=== PATIENT | female | born 1945 | race Caucasian/White ===

== ENCOUNTER → 2017-01-08 | Day surgery (SDC) | payer BC ==
[2016-12-04 10:06] VITALS: Ht 158.8 cm; Wt 65.9 kg
[~2017-01-08] VITALS: Ht 158.8 cm; Wt 65.9 kg
[~2017-01-08] MED LIST: ALL180 PO; AMLO-110 PO; ASPEC81 PO; ATOR-24 PO; CLC100 PO; COQ10100 PO; ESCI1TAB10 PO; FLUT27.5 NAE; GABA-113 PO; HYDR25TA4 PO; IOPAMIDOL INJ 61% 15 ML VIAL ONE; LIDOCAINE HCL 1% MPF 5 ML VIAL ONE; LUTE15CA PO; METO25TA3 PO; MULT-506 PO; PANT40TA PO; POLY335019 PO; SODIUM CHLORIDE 0.9% INJ 10 ML VIAL ONE
--- NOTE | 2017-01-08 15:12 | History & Physical Bridge - SC ---
H&P Re-Evaluation Bridge Note: I have examined the patient, reviewed the History & Physical and in the interval since the performance of the History & Physical I have noted the following changes of clinical significance: No changes noted
[2017-01-08 15:40] VITALS: TEMP 37.3
--- NOTE | 2017-01-08 15:46 | Discharge Instructions ---
Discharge Instructions Date of Service Jan 08, 2017. Visit Reason for Visit: Lumbar Radiculopathy Discharge Discharge Diagnosis / Problem: left leg pain Discharge Goals Goal(s): Decrease discomfort, Improve function Medications Stopped Medications Name(s): asa last dose on friday. Activity Recommendations Activity Limitations: resume your previous activity Anesthesia . Post Anesthesia Instructions: If you have had General Anesthesia or IV Sedation: * Do not drive today. * Resume driving when surgeon permits. * Do not make important decisions or sign legal documents today. * Call surgeon for: 1. Temperature elevations greater than 101 degrees F. 2. Uncontrollable pain. 3. Excessive bleeding. 4. Persistent nausea and vomiting. 5. Medication intolerance (nausea, vomiting or rash). * For nausea and vomiting use only clear liquids such as: tea, soda, bouillon until nausea subsides, then gradually increase diet as tolerated. * If you have any concerns or questions, call your surgeon's office. If physician is unavailable and it is an emergency, call 911 or go to the nearest emergency room. . Diet Recommendations Recommended Home Diet: resume previous diet Procedures Procedures Performed: Lumbar Epidural Steroid Injection Pending Studies Studies pending at discharge: no Medical Emergencies . Who to Call and When: Medical Emergencies: If at any time you feel your situation is an emergency, please call 911 immediately. . Non-Emergent Contact Non-Emergency issues call your: Specialist . . "Provider Documentation" section prepared by Minesh Capone. .
[2017-01-08 15:53] VITALS: BP 147/86; PULSE 59; O2SAT 99
--- NOTE | 2017-01-16 07:45 | [facility] Operative Report ---
Operative Report Date of Service January 08, 2017. Operative Report DATE OF SURGERY: 01/08/17. DATE OF OPERATION: 01/08/2017 PREOPERATIVE DIAGNOSIS: L3-4 herniated nucleus pulposus with a right L4 radiculopathy. POSTOPERATIVE DIAGNOSIS: Same. PROCEDURE: Right L4 intralaminar epidural steroid injection. SURGEON: Dr. Minesh Capone. INDICATIONS: The patient is a 71-year-old female who had received an epidural with good success in May. It provided her with nearly 8+ months of relief; however, her pain is returning and is problematic to her. She presents today for an injection. She is having more pain issues on the right side. Historically, she has had more left-sided pain. PHYSICAL EXAMINATION: GENERAL: Pleasant female seated comfortably in no apparent distress. MUSCULOSKELETAL EXAMINATION: Lumbar paraspinal muscles were palpated and noted be nontender. She had no issues with forward flexion or extension. She had normal lower extremity strength. Sensation intact distally. Negative seated straight leg raises. CONSENT: Verbal and written consent was obtained from the patient. Risks and benefits were reviewed. Risks include but are not limited to epidural abscess, epidural hematoma, allergic reaction, dural puncture. The patient wishes to proceed. PROCEDURE: The patient was taken back to the special procedures room of [facility]. She was maintained in a prone position. Backside was cleansed with Betadine x3 and a dry sterile dressing was applied. Fluoroscope was used to identify the L3-L4 intralaminar space. Overlying skin on the left side was anesthetized with 4 mL of lidocaine 1% with a 25 gauge 1.5-inch needle. A 22-gauge 3-1/2 inch Tuohy needle was then directed down towards the intralaminar space. It was advanced under lateral fluoroscopic guidance. Loss of resistance was noted at a distance of just under 6 cm. Isovue-300 contrast 1 mL was injected in which demonstrated an epidural outline with both AP and lateral views. She then underwent injection after negative aspiration of 40 mg of Depo-Medrol and 4 mL of preservative free sodium chloride. Injection was well tolerated. DISPOSITION: 1. The patient is taken out into the discharge recovery area where she will be discharged home once discharge criteria have been met. 2. Follow up in the [facility] office in 2-4 weeks. I attest to the content of the Intraoperative Record and any orders documented therein. Any exceptions are noted below. I attest to the content of the Intraoperative Record and any orders documented therein. Any exceptions are noted below.
== END | disposition home or self-care (01) ==
LOC: X.SURG 14:20
PROVIDERS: ATTEND Physical Medicine & Rehabilitation
DX: M51.26 Other intervertebral disc displacement, lumbar region (principal); M54.16 Radiculopathy, lumbar region

== ENCOUNTER → 2017-01-27 | Outpatient (CLI) | payer BC ==
[~2017-01-27] MED LIST changes: -IOPAMIDOL INJ 61% 15 ML VIAL ONE; -LIDOCAINE HCL 1% MPF 5 ML VIAL ONE; -SODIUM CHLORIDE 0.9% INJ 10 ML VIAL ONE
--- NOTE | 2017-01-27 14:32 | MAMMOGRAPHY REPORT ---
BILATERAL DIGITAL SCREENING MAMMOGRAM WITH CAD: 01/27/2017 CLINICAL HISTORY: Routine screening. Patient has no complaints. TECHNIQUE: Current study was also evaluated with a Computer Aided Detection (CAD) system. Bilateral CC and MLO views were obtained. COMPARISON: Comparison is made to exams dated: 01/25/2016 mammogram, 01/16/2015 mammogram, 01/11/2014 ma mmogram, 01/08/2013 mammogram - [facility], 02/02/2008, and 12/15/2006. BREAST COMPOSITION: There are scattered areas of fibroglandular density in both breasts. FINDINGS: No suspicious masses, calcifications, or areas of architectural distortion are noted in ei ther breast. There has been no significant interval change compared to prior exams. Nodular asymmetr y in the right inferior anterior breast is stable compared to prior exams. Bilateral benign-appearin g calcifications are stable. IMPRESSION: ACR BI-RADS CATEGORY 2: BENIGN There is no mammographic evidence of malignancy. A 1 year screening mammogram is recommended. The pa tient will receive written notification of the results. Approximately 10% of breast cancers are not detected with mammography. A negative mammographic report should not delay biopsy if a clinically suggestive mass is present. Guera Moseley M.D. /:01/27/2017 12:31:49 Associate Attorney: Christianne NOVOA)(M), [facility] letter sent: Normal 1/2 BI-RADS Code: ACR BI-RADS Category 2: Benign
== END | disposition home or self-care (01) ==
LOC: C.MAMM 10:42
PROVIDERS: ATTEND Obstetrics & Gynecology
DX: Z12.31 Encounter for screening mammogram for malignant neoplasm of breast (principal)

== ENCOUNTER → 2017-01-28 | Day surgery (SDC) | payer BC ==
[2017-01-10 12:19] VITALS: Ht 157.5 cm; Wt 65.9 kg
[~2017-01-28] VITALS: Ht 157.5 cm; Wt 65.9 kg
[~2017-01-28] MED LIST changes: +500ML BSS 0.3ML EPI 1:1000PF IRRIG ONE; +ACETAMINOPHEN 325 MG TAB PO PRN; +AMVISC PLUS 0.8ML SYRINGE INT OCU ONE; +ATROPINE SULFATE 0.1 MG/ML 5ML SYR IV PRN; +BSS FLUSH ONE; +EpHEDrine SULFATE INJ 50 MG/ML AMP IV PRN; +EpINEphrine INJ 1MG/ML AMP 1 MG/ML AMP ONE; +LACTATED RINGER'S 1000ML 500 ML IV SCH; +LIDOCAINE 3.5% OPH GEL PER APPLICATION CHARGE ONE; +LIDOCAINE HCL 1% MPF 2 ML VIAL ONE; +MIDAZOLAM HCL 1 MG/ML 2ML VIAL ONE; +OCUCOAT 1 ML SOLN IO ONE; +ONDANSETRON INJ 2 MG/ML 2 ML VIAL IV PRN; +POVIDONE-IODINE OP SOLN 30 ML BTL ONE; +PROPARACAINE 0.5% OP SOLN PER DROP CHARGE OPR SCH; +TOBRAMYCIN/DEXAMETHASONE OPH OINT PER APPLN CHARGE ONE
[2017-01-28] MEDS: PHENYLEPHRINE HCL 2.5% OP SOLN PER DROP CHARGE OPR SCH ×2 (06:50→06:58)
[2017-01-28] MEDS: TROPICAMIDE 1% OP SOLN PER DROP CHARGE OPR SCH ×2 (06:51→06:59)
[2017-01-28] MEDS: CYCLOPENTOLATE HCL 1% OP SOLN PER DROP CHARGE OPR SCH ×2 (06:53→07:00)
[2017-01-28] MEDS: KETOROLAC 0.5% OP SOLN PER DROP CHARGE OPR SCH ×2 (06:55→07:01)
[2017-01-28] MEDS: GATIFLOXACIN OP SOLN PER DROP CHARGE OPR SCH ×2 (06:56→07:02)
--- NOTE | 2017-01-28 08:05 | Discharge Instructions-SurgCtr ---
Discharge Instructions Date of Service Jan 28, 2017. Visit Reason for Visit: Cataract Right Eye Discharge Discharge Diagnosis / Problem: cataract Discharge Goals Goal(s): Improve function Activity Recommendations Activity Limitations: per Instructions/Follow-up section Anesthesia . Post Anesthesia Instructions: If you have had General Anesthesia or IV Sedation: * Do not drive today. * Resume driving when surgeon permits. * Do not make important decisions or sign legal documents today. * Call surgeon for: 1. Temperature elevations greater than 101 degrees F. 2. Uncontrollable pain. 3. Excessive bleeding. 4. Persistent nausea and vomiting. 5. Medication intolerance (nausea, vomiting or rash). * For nausea and vomiting use only clear liquids such as: tea, soda, bouillon until nausea subsides, then gradually increase diet as tolerated. * If you have any concerns or questions, call your surgeon's office. If physician is unavailable and it is an emergency, call 911 or go to the nearest emergency room. . Instructions / Follow-Up Instructions / Follow-Up ACTIVITY RECOMMENDATIONS: * No strenuous lifting, jogging or running for 4 days * No swimming or yard work for 1 week. * Limited bending is permitted, such as putting on shoes. RETURN TO SCHOOL/WORK: No work until seen by physician in office. MEDICATIONS: Resume previous medications unless instructed otherwise by your surgeon. This includes eye drops for glaucoma. Zymaxid/Gatifloxacin (rose cap) - one drop every 2 hours until bedtime Nevanac/Ilevro/Prolensa/Ketorolac (telles cap) - one drop every 4 hours until bedtime Prednisolone/Durezol (white/pink cap, SHAKE WELL) - one drop every 2 hours until bedtime Starting tomorrow - all 3 drops every 4 hours until seen in the office Optive drops - as needed for discomfort SPECIAL CARE INSTRUCTIONS: * Wear eyeshield when sleeping, for four nights. * You may wear your own glasses or sunglasses while awake. * You may read or watch TV * You may shower and wash your face, but be gentle around the eye and pat dry. * Blurry vision and mild irritation are normal. * Call office if pain is more severe or vision becomes dark at . FOLLOW UP VISIT: Follow-up with Dr Shaw tomorrow. Diet Recommendations Home Diet: resume previous diet Procedures Procedures Performed: Right Cataract Phacoemulsification With Intraocular Lens Implant Pending Studies Studies pending at discharge: no Medical Emergencies . Who to Call and When: Medical Emergencies: If at any time you feel your situation is an emergency, please call 911 immediately. . Non-Emergent Contact Non-Emergency issues call your: Drawer In Hand . . "Provider Documentation" section prepared by Murray Shaw. .
--- NOTE | 2017-01-28 08:05 | [facility] Operative Report ---
Operative Report Date of Service Jan 28, 2017. Operative Report 1. PREOPERATIVE DIAGNOSIS: Cataract of the right eye. 2. POSTOPERATIVE DIAGNOSIS: Same. 3. PROCEDURE: Phacoemulsification with intraocular lens implantation of the right eye. SURGEON: Dr. Murray Shaw. ANESTHESIA: Topical Lidocaine gel, 1% Non- Preserved intracameral Lidocaine, and monitored intravenous sedation. INDICATIONS FOR THE PROCEDURE: The patient is a 71 - year-old female with a history of cataract of the right eye causing significant visual impairment. The details of the proposed procedure were explained to the patient who asked appropriate questions and following discussion of all risks, benefits and alternatives agreed to have the procedure done. 4. OPERATION AND FINDINGS: DESCRIPTION OF PROCEDURE: After informed consent was obtained, the patient was brought to the Operating Room at the [facility]. The patient was placed in a supine position and then the right eye was prepped and draped in the usual sterile fashion for intraocular surgery. A drop of topical Lidocaine gel was placed in the operative eye. A wire lid speculum was then placed in the fornices. A corneal paracentesis was then created temporally. The Non-Preserved Lidocaine was then instilled into the anterior chamber. The anterior chamber was then pressurized with viscoelastic. A 2.0 mm clear corneal incision was then created temporally. A cystotome was inserted into the anterior chamber and used to create a tear in the anterior lens capsule. This capsular tear was then used to create a small flap and the flap was dragged in a counterclockwise direction in order to create a continuous curvilinear capsulorrhexis. Hydrodissection was accomplished with balanced salt solution. Phacoemulsification of the lens nucleus was then performed in a standard [id number] technique. The phaco time was 23 seconds with an average power of 13 %. The remaining cortical material was removed using irrigation aspiration. The capsular bag was then filled with viscoelastic. A Mendez [id number] +23.0 diopters lens was then loaded into the injector and injected into the capsular bag. The remaining viscoelastic was removed with the irrigation aspiration handpiece. The wound was hydrated and then checked and found to be watertight. The intraocular pressure was checked and found to be adequate. The wire lid speculum was removed and the patient's face was cleaned and dried. TobraDex ointment was placed in the inferior fornix. The patient was discharged to the Recovery Room having tolerated the procedure well. There were no complications. The patient will be seen tomorrow in the office for follow-up. I attest to the content of the Intraoperative Record and any orders documented therein. Any exceptions are noted below.
[2017-01-28 08:08] VITALS: TEMP 36.4
--- NOTE | 2017-01-28 08:16 | Anesthesia Progress Nt - [facility] ---
Anesthesia Post Op Note Date & Time Jan 28, 2017 at 08:16 Vital Signs Pain Intensity: 0 Vital Signs Past 12 Hours Date Time Temp Pulse Resp B/P (MAP) Pulse Ox O2 Delivery O2 Flow Rate FiO2 01/28/17 08:08 36.4 52 18 155/79 (104) 98 Room Air 01/28/17 06:39 36.9 56 16 153/75 (101) 96 Room Air Notes Mental Status: alert / awake / arousable, participated in evaluation Pt Amnestic to Procedure: Yes Nausea / Vomiting: adequately controlled Pain: adequately controlled Airway Patency, RR, SpO2: stable & adequate BP & HR: stable & adequate Hydration State: stable & adequate Anesthetic Complications: no major complications apparent
[2017-01-28 08:28] VITALS: BP 135/78; PULSE 53; O2SAT 97
== END | disposition home or self-care (01) ==
LOC: X.SURG 06:30
PROVIDERS: ATTEND Ophthalmology
DX: H26.9 Unspecified cataract (principal); F32.9 Major depressive disorder, single episode, unspecified; E78.5 Hyperlipidemia, unspecified; K21.9 Gastro-esophageal reflux disease without esophagitis; I25.10 Atherosclerotic heart disease of native coronary artery without angina pectoris; Z79.899 Other long term (current) drug therapy; Z79.82 Long term (current) use of aspirin; Z82.49 Family history of ischemic heart disease and other diseases of the circulatory system; Z82.3 Family history of stroke

== ENCOUNTER → 2017-02-18 | Day surgery (SDC) | payer BC ==
[2017-02-05 12:03] VITALS: Ht 157.5 cm; Wt 65.9 kg
[~2017-02-18] VITALS: Ht 157.5 cm; Wt 65.9 kg
[~2017-02-18] MED LIST changes: +AMVISC PLAIN 0.8ML SYRINGE INT OCU ONE; -ONDANSETRON INJ 2 MG/ML 2 ML VIAL IV PRN; +PROPARACAINE 0.5% OP SOLN PER DROP CHARGE OPL SCH; -PROPARACAINE 0.5% OP SOLN PER DROP CHARGE OPR SCH
[2017-02-18] MEDS: PHENYLEPHRINE HCL 2.5% OP SOLN PER DROP CHARGE OPL SCH ×2 (08:42→08:47)
[2017-02-18] MEDS: TROPICAMIDE 1% OP SOLN PER DROP CHARGE OPL SCH ×2 (08:43→08:48)
[2017-02-18] MEDS: CYCLOPENTOLATE HCL 1% OP SOLN PER DROP CHARGE OPL SCH ×2 (08:44→08:49)
[2017-02-18] MEDS: KETOROLAC 0.5% OP SOLN PER DROP CHARGE OPL SCH ×2 (08:45→08:50)
[2017-02-18] MEDS: GATIFLOXACIN OP SOLN PER DROP CHARGE OPL SCH ×2 (08:46→08:56)
--- NOTE | 2017-02-18 09:43 | Discharge Instructions-SurgCtr ---
Discharge Instructions Date of Service Feb 18, 2017. Visit Reason for Visit: Cataract Left Eye Discharge Discharge Diagnosis / Problem: cataract Discharge Goals Goal(s): Improve function Activity Recommendations Activity Limitations: per Instructions/Follow-up section Anesthesia . Post Anesthesia Instructions: If you have had General Anesthesia or IV Sedation: * Do not drive today. * Resume driving when surgeon permits. * Do not make important decisions or sign legal documents today. * Call surgeon for: 1. Temperature elevations greater than 101 degrees F. 2. Uncontrollable pain. 3. Excessive bleeding. 4. Persistent nausea and vomiting. 5. Medication intolerance (nausea, vomiting or rash). * For nausea and vomiting use only clear liquids such as: tea, soda, bouillon until nausea subsides, then gradually increase diet as tolerated. * If you have any concerns or questions, call your surgeon's office. If physician is unavailable and it is an emergency, call 911 or go to the nearest emergency room. . Instructions / Follow-Up Instructions / Follow-Up ACTIVITY RECOMMENDATIONS: * No strenuous lifting, jogging or running for 4 days * No swimming or yard work for 1 week. * Limited bending is permitted, such as putting on shoes. RETURN TO SCHOOL/WORK: No work until seen by physician in office. MEDICATIONS: Resume previous medications unless instructed otherwise by your surgeon. This includes eye drops for glaucoma. Zymaxid/Gatifloxacin (rose cap) - one drop every 2 hours until bedtime Nevanac/Ilevro/Prolensa/Ketorolac (telles cap) - one drop every 4 hours until bedtime Prednisolone/Durezol (white/pink cap, SHAKE WELL) - one drop every 2 hours until bedtime Starting tomorrow - all 3 drops every 4 hours until seen in the office Optive drops - as needed for discomfort SPECIAL CARE INSTRUCTIONS: * Wear eyeshield when sleeping, for four nights. * You may wear your own glasses or sunglasses while awake. * You may read or watch TV * You may shower and wash your face, but be gentle around the eye and pat dry. * Blurry vision and mild irritation are normal. * Call office if pain is more severe or vision becomes dark at . FOLLOW UP VISIT: Follow-up with Dr Shaw tomorrow. Diet Recommendations Home Diet: resume previous diet Procedures Procedures Performed: Left Cataract Phacoemulsification With Intraocular Lens Implant; Toric Lens Pending Studies Studies pending at discharge: no Medical Emergencies . Who to Call and When: Medical Emergencies: If at any time you feel your situation is an emergency, please call 911 immediately. . Non-Emergent Contact Non-Emergency issues call your: Drawing Checker . . "Provider Documentation" section prepared by Murray Shaw. .
--- NOTE | 2017-02-18 09:45 | [facility] Operative Report ---
Operative Report Date of Service Feb 18, 2017. Operative Report 1. PREOPERATIVE DIAGNOSIS: Cataract of the left eye. 2. POSTOPERATIVE DIAGNOSIS: Same. 3. PROCEDURE: Phacoemulsification with intraocular lens implantation of the left eye. SURGEON: Dr. Murray Shaw. ANESTHESIA: Topical Lidocaine gel, 1% Non- Preserved intracameral Lidocaine, and monitored intravenous sedation. INDICATIONS FOR THE PROCEDURE: The patient is a 71 - year-old female with a history of cataract of the left eye causing significant visual impairment. The details of the proposed procedure were explained to the patient who asked appropriate questions and following discussion of all risks, benefits and alternatives agreed to have the procedure done. Patient had corneal astigmatism and therefore elected to have a toric lens placed. 4. OPERATION AND FINDINGS: DESCRIPTION OF PROCEDURE: After informed consent was obtained, patient was placed in an upright position and the cornea was marked at 166 degrees using the Ekinops corneal marking tool. The the patient was brought to the Operating Room at the [facility]. The patient was placed in a supine position and then the left eye was prepped and draped in the usual sterile fashion for intraocular surgery. A drop of topical Lidocaine gel was placed in the operative eye. A wire lid speculum was then placed in the fornices. A corneal paracentesis was then created temporally. The Non-Preserved Lidocaine was then instilled into the anterior chamber. The anterior chamber was then pressurized with viscoelastic. A 2.0 mm clear corneal incision was then created temporally. A cystotome was inserted into the anterior chamber and used to create a tear in the anterior lens capsule. This capsular tear was then used to create a small flap and the flap was dragged in a counterclockwise direction in order to create a continuous curvilinear capsulorrhexis. Hydrodissection was accomplished with balanced salt solution. Phacoemulsification of the lens nucleus was then performed in a standard divide- and-conquer technique. The phaco time was 24 seconds with an average power of 8 %. The remaining cortical material was removed using irrigation aspiration. The capsular bag was then filled with viscoelastic. A Mendez [id number] +22.0 diopters lens was then loaded into the injector and injected into the capsular bag. The lens was aligned with the previously made corneal guadalupe. The remaining viscoelastic was removed with the irrigation aspiration handpiece. The wound was hydrated and then checked and found to be watertight. The intraocular pressure was checked and found to be adequate. The wire lid speculum was removed and the patient's face was cleaned and dried. TobraDex ointment was placed in the inferior fornix. The patient was discharged to the Recovery Room having tolerated the procedure well. There were no complications. The patient will be seen tomorrow in the office for follow-up. I attest to the content of the Intraoperative Record and any orders documented therein. Any exceptions are noted below.
[2017-02-18 09:47] VITALS: TEMP 36.7
--- NOTE | 2017-02-18 09:49 | Anesthesia Progress Nt - [facility] ---
Anesthesia Post Op Note Date & Time Feb 18, 2017 at 09:49 Vital Signs Pain Intensity: 0 Vital Signs Past 12 Hours Date Time Temp Pulse Resp B/P (MAP) Pulse Ox O2 Delivery O2 Flow Rate FiO2 02/18/17 08:35 36.8 57 20 127/82 (97) 95 Room Air Notes Mental Status: alert / awake / arousable, participated in evaluation Pt Amnestic to Procedure: Yes Nausea / Vomiting: adequately controlled Pain: adequately controlled Airway Patency, RR, SpO2: stable & adequate BP & HR: stable & adequate Hydration State: stable & adequate Anesthetic Complications: no major complications apparent
[2017-02-18 10:12] VITALS: BP 145/74; PULSE 55; O2SAT 98
== END | disposition home or self-care (01) ==
LOC: X.SURG 08:01
PROVIDERS: ATTEND Ophthalmology
DX: H26.9 Unspecified cataract (principal); H53.9 Unspecified visual disturbance; Z96.1 Presence of intraocular lens

== ENCOUNTER → 2017-02-25 | Outpatient (CLI) | payer BC ==
[~2017-02-25] MED LIST changes: -500ML BSS 0.3ML EPI 1:1000PF IRRIG ONE; -ACETAMINOPHEN 325 MG TAB PO PRN; -AMVISC PLAIN 0.8ML SYRINGE INT OCU ONE; -AMVISC PLUS 0.8ML SYRINGE INT OCU ONE; -ATROPINE SULFATE 0.1 MG/ML 5ML SYR IV PRN; -BSS FLUSH ONE; -EpHEDrine SULFATE INJ 50 MG/ML AMP IV PRN; -EpINEphrine INJ 1MG/ML AMP 1 MG/ML AMP ONE; -LACTATED RINGER'S 1000ML 500 ML IV SCH; -LIDOCAINE 3.5% OPH GEL PER APPLICATION CHARGE ONE; -LIDOCAINE HCL 1% MPF 2 ML VIAL ONE; -MIDAZOLAM HCL 1 MG/ML 2ML VIAL ONE; -OCUCOAT 1 ML SOLN IO ONE; -POVIDONE-IODINE OP SOLN 30 ML BTL ONE; -PROPARACAINE 0.5% OP SOLN PER DROP CHARGE OPL SCH; -TOBRAMYCIN/DEXAMETHASONE OPH OINT PER APPLN CHARGE ONE
--- NOTE | 2017-02-25 10:34 | DIAGNOSTIC IMAGING REPORT ---
SOFT TISS HEAD/NECK-THYROID CLINICAL HISTORY: 71 years-old Female with E04.1. Thyroid nodule follow-up. COMPARISON: Thyroid ultrasound 01/15/2016 and 02/23/2014 TECHNIQUE: Multiple real time sonographic images of the thyroid were obtained accessing telles scale appearance and color doppler flow. FINDINGS: MEASUREMENTS: Right lobe: 4.4 x 1.4 x 2.2 cm Left lobe: 5.3 x 1.6 x 1.8 cm Isthmus: 0.2 cm PARENCHYMA: The thyroid parenchymal echotexture is mildly heterogeneous throughout. NODULES: Within the lower pole right thyroid lobe there is a circumscribed wider than tall hypoechoic cystic-appearing lesion measuring up to 1.6 cm appears generally unchanged from comparison. There is an adjacent hypoechoic nodule which abuts this cyst, 4 mm appears more cystic from comparison. Multiple nodules are seen throughout the left thyroid lobe. Within the mid pole left thyroid there is a mixed echogenicity, cystic and solid nodule without significant posterior features and ill-defined margins measuring up to 1.9 x 1.5 x 1.4 cm, measuring up to 1.6 cm on comparison. Difference in size is likely attributed to technique. Morphologically this nodule has not significantly changed. Within the lower pole left thyroid there is a solid isoechoic nodule with ill-defined margins, 1.2 x 1.0 cm with internal vascularity, also unchanged from comparison. IMPRESSION: Multinodular goiter redemonstrated with largest nodule measuring up to 1.9 cm within the mid pole left thyroid lobe, not significantly changed from comparison studies dated 01/15/2016 and 02/23/2014. The above report was generated using voice recognition software. It may contain grammatical, syntax or spelling errors. Electronically signed by: Man Seay M.D. 02/25/2017 10:33 AM Dictated Date/Time: 02/25/2017 10:28 AM
== END | disposition home or self-care (01) ==
LOC: C.ULTRBC 09:58
PROVIDERS: ATTEND Internal Medicine
DX: E04.1 Nontoxic single thyroid nodule (principal)

== ENCOUNTER 2017-05-14 15:04 | Emergency (ER) | payer BC ==
[~2017-05-14] VITALS: Ht 154.9 cm; Wt 65.9 kg
[2017-05-14 15:11] VITALS: Ht 154.9 cm; Wt 65.9 kg
[2017-05-14] MEDS ORDERED: ONDANSETRON 4MG OD TAB ONE (16:14)
[2017-05-14] MEDS ORDERED: ONDANSETRON 4MG OD TAB PO ONE (16:15)
[2017-05-14] MEDS ORDERED: NRN400 PO (16:21)
[2017-05-14] MEDS ORDERED: ASPI81TA21 PO (16:21)
[2017-05-14] MEDS ORDERED: FEXO-101 PO (16:21)
[2017-05-14] MEDS ORDERED: COEN1CAP28 PO (16:21)
[2017-05-14] MEDS ORDERED: ASTN NAE (16:22)
[2017-05-14] MEDS ORDERED: LOPELIQ6 PO (16:22)
[2017-05-14] MEDS ORDERED: FLNIN/ NAE (16:22)
[2017-05-14] MEDS ORDERED: DOCU-94 PO (17:37)
--- NOTE | 2017-05-14 17:37 | EMERGENCY ROOM VISIT NOTE ---
History Report prepared by Lexie: Andres Swift Under the Supervision of: Dr. Bipin Quiroz D.O. First contact with patient: 15:11 Chief Complaint: CONSTIPATION Stated Complaint: ABD PAIN History of Present Illness The patient is a 71 year old female who presents to the Emergency Room by EMS with complaints of persistent constipation beginning this week. She states "my bowels are impacted". She states that she has been unable to defecate at all today. The patient has a history of similar symptoms once before. She attempted a fleet enema on herself but nothing has improved her symptoms. She states that she is able to feel the stool with her fingers. The patient also complains of rectal pain. She notes that she previously had three weeks of diarrhea and was started on Imodium. She is scheduled for a colonoscopy at the end of the month. The patient denies abdominal pain. Source of History: patient Onset: this week Quality: other (constipation) Timing: other (persistent) Associated Symptoms: No abdominal pain Note: The patient also complains of rectal pain. Review of Systems See HPI for pertinent positives & negatives. A total of 10 systems reviewed and were otherwise negative. Past Medical & Surgical Medical Problems: (1) Constipation (2) No Known Active Medical Problems Family History No pertinent family history stated. Social History Smoking Status: Never Smoker Occupation Status: employed Current/Historical Medications Scheduled Amlodipine (Norvasc), 2.5 MG PO QAM Aspirin Enteric Coated (Ecotrin Or Generic), 81 MG PO HS Atorvastatin (Lipitor), 40 MG PO HS Azelastine Hcl (Astelin Nasal [place]), 2 SPRAYS JENA HS Coenzyme Q10 (Ubidecarenone) (Co Q10), 100 MG PO QPM Docusate Sodium (Colace), 1 CAP PO BID Escitalopram Oxalate (Lexapro), 10 MG PO QAM Fexofenadine HCl (Allergy 24-Hr), 180 MG PO QAM Fluticasone Propionate (Fluticasone Propionate), 2 SPRAYS JENA QAM Gabapentin (Gabapentin), 400 MG PO BID Hydrochlorothiazide (Hctz), 25 MG PO 3XWK Loperamide Hcl (Imodium A-D), 7.5 ML PO QAM Lutein-Zeaxanthin (Lutein), 1 CAP PO QAM Metoprolol Succ (Toprol Xl) (Toprol-Xl), 12.5 MG PO QAM Multivitamin (Multivitamin), 1 TAB PO QAM Pantoprazole (Protonix), 20-40 MG PO UD Allergies Coded Allergies: Penicillins (Verified Allergy, Intermediate, HIVES, 05/14/17) Cephalosporins (Verified Allergy, Mild, RASH, 05/14/17) Clam (Verified Allergy, Mild, "ALMOST PASSED OUT", 05/14/17) KARINE Inhibitors (Unverified Allergy, Unknown, RASH, 05/14/17) Sulfa Antibiotics (Verified Adverse Reaction, Unknown, Weakness, 05/14/17) Physical Exam Vital Signs Date Time Temp Pulse Resp B/P (MAP) Pulse Ox O2 Delivery O2 Flow Rate FiO2 05/14/17 16:49 63 20 122/59 97 Room Air 05/14/17 15:11 69 20 180/90 97 Room Air Physical Exam CONSTITUTIONAL/VITAL SIGNS: Reviewed / noted above. GENERAL: Non-toxic in appearance. INTEGUMENTARY: Warm, dry, and [place]. HEAD: Normocephalic. EYES: without scleral icterus or trauma. ENT/OROPHARYNX: clear and moist. LYMPHADENOPATHY/NECK: Is supple without lymphadenopathy or meningismus. RESPIRATORY: Lungs clear and equal. CARDIOVASCULAR: Regular rate and rhythm. GI/ABDOMEN: Soft and nontender. No organomegaly or pulsatile mass. No rebound or guarding. Normal bowel sounds. RECTAL: hard stool in rectal vault. EXTREMITIES: Warm and well perfused. BACK: No CVA tenderness. NEUROLOGICAL: Intact without focal deficits. PSYCHIATRIC: normal affect. MUSCULOSKELETAL: Normally developed with good muscle tone. Medical Decision & Procedures Medications Administered Medications (Trade) Dose Ordered Sig/Jocelynn Route Start Time Stop Time Status Last Admin Dose Admin Ondansetron HCl (Zofran Odt) 4 mg STK-MED ONCE .ROUTE 05/14/17 16:14 05/14/17 16:15 DC 05/14/17 16:15 4 MG ED Course 1512: Previous medical records were reviewed. The patient was evaluated in room B8. A complete history and physical examination was performed. 1517: I digitally disimpacted the patient. 1615: Ordered Zofran Odt 4 mg PO. 1735: On reevaluation, the patient is resting comfortably. I discussed the results and findings with the patient. She verbalized agreement of the treatment plan. She was discharged home. Medical Decision Differential considered: constipation, pancreatitis, hepatitis, or acute cholecystitis, AAA, UTI, pyelonephritis, kidney stones, appendicitis, diverticulitis, shingles, bowel obstruction mesenteric ischemia, intussusception ,hernia, ovarian torsion, ovarian cyst. This is a 71-year-old female who presents to the ED with a chief complaint of constipation. The patient reports discomfort in the rectal area. She states that she has been attempting to move her bowels since earlier today and cannot. She states that she can feel the stool in her rectum. The patient denies any abdominal discomfort or back pain. Rectal exam reveals impacted stool in the rectal vault. She was disimpacted in the ED and an enema was performed. The patient did move her bowels. She was feeling better. She was felt to be stable for discharge. Medication Reconcilliation Current Medication List: was personally reviewed by me Blood Pressure Screening Patient's blood pressure: Elevated blood pressure Blood pressure disposition: Referred to PCP Impression Primary Impression: Constipation Scribe Attestation The scribe's documentation has been prepared under my direction and personally reviewed by me in its entirety. I confirm that the note above accurately reflects all work, treatment, procedures, and medical decision making performed by me. Departure Information Dispostion Home / Self-Care Prescriptions Docusate Sodium (COLACE) 100 Mg Cap 1 CAP PO BID for 15 Days, #30 CAP Prov: Bipin Quiroz D.O. 05/14/17 Referrals Nathaniel Mason D.O. (PCP) Patient Instructions Constipation, My [facility] Additional Instructions Follow-up with your doctor for further care and evaluation in 1-2 days. Return to the emergency department for worsening or new symptoms or any concerns. You have been examined and treated today on an emergency basis only. This is not a substitute for, or an effort to provide, complete comprehensive medical care. It is impossible to recognize and treat all injuries or illnesses in a single emergency department visit. It is therefore important that you follow up closely with your doctor. Call as soon as possible for an appointment.
[2017-05-14 18:04] VITALS: BP 137/67; PULSE 67; TEMP 36.7; O2SAT 96
== END 2017-05-14 18:06 | disposition home or self-care (01) ==
LOC: EDBD 15:04 → C.EDB 15:04
DX: K59.00 Constipation, unspecified (principal); Z79.82 Long term (current) use of aspirin; Z79.899 Other long term (current) drug therapy; Z88.0 Allergy status to penicillin; Z88.2 Allergy status to sulfonamides; Z88.8 Allergy status to other drugs, medicaments and biological substances

== ENCOUNTER → 2017-05-28 | Outpatient (CLI) | payer BC ==
[~2017-05-28] MED LIST changes: -ALL180 PO; -ASPEC81 PO; +ASPI81TA21 PO; +ASTN NAE; -CLC100 PO; +COEN1CAP28 PO; -COQ10100 PO; +DOCU-94 PO; +DOCU100C31 PO; +FEXO-101 PO; +FLNIN/ NAE; -FLUT27.5 NAE; -GABA-113 PO; +LOPELIQ6 PO; +NRN400 PO; +OMEG12006 PO; -POLY335019 PO
--- NOTE | 2017-05-28 15:33 | DIAGNOSTIC IMAGING REPORT ---
MRI CERVICAL WITHOUT CONTRAST CLINICAL HISTORY: CERVICAL SPINAL STENOSIS HISTORY OF PRIOR CERVICAL FUSION. BILATERAL HAND NUMBNESS. LEG WEAKNESS. TECHNIQUE: Sagittal and axial T1, T2 and STIR images were obtained. COMPARISON STUDY: November 2011 There is a partially visualized focus of abnormal marrow signal within the T5 vertebral body, unchanged the prior study. No intrinsic cervical cord lesions are visualized. C2-3: There is a mild circumferential disc bulge. There is posterior ligamentous hypertrophy. There is mild spinal stenosis. C3-4: The patient is status post a discectomy and interbody fusion. Anterior screws are present the C3 and C4 levels. There is no disc herniation. There is no spinal stenosis. C4-5: There is a circumferential disc bulge. There is moderate to severe spinal stenosis. There is bilateral foraminal narrowing right more severe than left. C5-6 :There is a circumferential disc bulge present. There is moderate spinal stenosis. There is mild bilateral foraminal narrowing. C6-7: There is a circumferential disc bulge present. There is moderate to severe spinal stenosis. There is bilateral foraminal narrowing. C7-T1: There is no evidence of disc bulge or focal herniation. There is no evidence of spinal or foraminal stenosis. IMPRESSION: 1 postsurgical changes of the C3-4 discectomy and fusion 2. Progressive multilevel spondylitic changes with multilevel disc bulges. Mild spinal stenosis at the C2-3 level. Moderate spinal stenosis at the C5-6 level, and moderate to severe spinal stenosis the C4-5 and C6-7 levels. 3. Multilevel foraminal narrowing 4. Partially visualized focus of abnormal marrow signal within the T5 vertebral body, unchanged from the preceding study Electronically signed by: Brice Jara M.D. 05/28/2017 3:32 PM Dictated Date/Time: 05/28/2017 3:24 PM
== END | disposition home or self-care (01) ==
LOC: C.MRI 14:15
PROVIDERS: ATTEND Orthopaedic Surgery
DX: M48.02 Spinal stenosis, cervical region (principal)

== ENCOUNTER → 2018-01-28 | Outpatient (CLI) | payer BC ==
[~2018-01-28] MED LIST changes: -AMLO-110 PO; +AMLO5TAB3 PO; +ASPI-319 PO; -ASPI81TA21 PO; -DOCU-94 PO; -LOPELIQ6 PO
--- NOTE | 2018-01-29 07:55 | MAMMOGRAPHY REPORT ---
BILATERAL DIGITAL SCREENING MAMMOGRAM TOMOSYNTHESIS WITH CAD: 01/28/2018 CLINICAL HISTORY: Routine screening examination. TECHNIQUE: The study was acquired using full field digital technology and interpreted from soft copy. Breast tomosynthesis in addition to standard 2D mammography was performed. Current study was also ev aluated with a Computer Aided Detection (CAD) system. COMPARISON: Comparison is made to exams dated: 01/27/2017 mammogram, 01/25/2016 mammogram, 01/16/2015 m ammogram, 01/11/2014 mammogram, 01/08/2013 mammogram - [facility], and 02/02/2008. BREAST COMPOSITION: There are scattered areas of fibroglandular density in both breasts. FINDINGS: There is an asymmetry with possible associated architectural distortion in the approximate 12:00 middle to anterior right breast, for which additional spot compression tomosynthesis views and possible ultrasound are recommended. There is stable nodular asymmetry in the inferior anterior right breast on the MLO view. A few scatt ered benign rim calcifications. No other suspicious mass, architectural distortion or cluster of stephany rocalcifications is seen. IMPRESSION: ACR BI-RADS CATEGORY 0: INCOMPLETE EVALUATION: NEED ADDITIONAL IMAGING EVALUATION The asymmetry with possible associated architectural distortion in the approximate 12:00 right breast needs additional evaluation. The patient will be called to schedule an appointment. Some breast cancers are not detected with mammography. A negative mammographic report should not raad y biopsy if a clinically suggestive mass is present. Palma Blanco M.D. ay/:01/28/2018 16:32:29 Cargo Operations Agent: RT Ladarius(R)(M), [facility] letter sent: Addl Imaging 0 BI-RADS Code: ACR BI-RADS Category 0: Incomplete Evaluation: Need Additional Imaging Evaluation
== END | disposition home or self-care (01) ==
LOC: C.MAMM 11:27
PROVIDERS: ATTEND Internal Medicine
DX: Z12.31 Encounter for screening mammogram for malignant neoplasm of breast (principal); N64.89 Other specified disorders of breast

== ENCOUNTER → 2018-02-05 | Outpatient (CLI) | payer BC ==
--- NOTE | 2018-02-05 14:57 | MAMMOGRAPHY REPORT ---
UNILATERAL RIGHT DIGITAL DIAGNOSTIC MAMMOGRAM TOMOSYNTHESIS AND TARGETED RIGHT ULTRASOUND: 02/05/2018 CLINICAL HISTORY: Callback from screening mammogram for possible right breast architectural distortio n. TECHNIQUE: The study was acquired using full field digital technology and interpreted from soft copy. Breast tomosynthesis in addition to standard 2D mammography was performed. Spot compression right C C and MLO 2D and tomosynthesis images were obtained. COMPARISON: Comparison is made to exams dated: 01/28/2018 mammogram, 01/27/2017 mammogram, 01/25/2016 m ammogram, 01/16/2015 mammogram, 01/11/2014 mammogram, and 01/08/2013 mammogram - [facility] ter. BREAST COMPOSITION: There are scattered areas of fibroglandular density in right breast. FINDINGS: The previously described asymmetry with possible associated architectural distortion in the right 12: 00 breast effaces to a baseline appearance on the additional spot compression views. Normal fibrogla ndular tissue is seen in this region, without evidence of a suspicious mass or architectural distort ion. Targeted ultrasound was performed of the right 12:00 breast in the region of the mammographic finding s. Sonographically normal tissue is seen in this region, without evidence of a mass or other suspici ous on a graphic abnormality. IMPRESSION: ACR BI-RADS CATEGORY 2: BENIGN, ULTRASOUND ACR BI-RADS CATEGORY 2: BENIGN The right breast asymmetry effaces on the additional spot compression views, with no persistent archi tectural distortion seen on the additional images. No suspicious sonographic correlate is evident. Findings are benign and compatible with normal fibroglandular tissue. There is no mammographic or so nographic evidence of malignancy. A 1 year screening mammogram is recommended.(02/06/2019) The patie nt has been verbally notified of the results. Some breast cancers are not detected with mammography. A negative mammographic report should not raad y biopsy if a clinically suggestive mass is present. Guera Moseley M.D. ah/:02/05/2018 12:19:17 Can Line Examiner: RT Forest(R)(M), [facility]; Guera Moseley MD, [facility] letter sent: Normal / OVERALL STUDY BIRADS: 2 Benign
== END | disposition home or self-care (01) ==
LOC: C.MAMM 11:29
PROVIDERS: ATTEND Internal Medicine
DX: R92.8 Other abnormal and inconclusive findings on diagnostic imaging of breast (principal); N64.89 Other specified disorders of breast

== ENCOUNTER 2023-12-09 10:20 | Inpatient (IN) ==
--- NOTE | 2023-12-09 10:37 | Emergency Department Note ---
Impression & Plan Closed left ankle fracture, Closed dislocation of left ankle, Fall ED Provider Note NAME: DORITA PEARCE AGE: 78 SEX: F : 1945 ARRIVES VIA: Ambulance INFORMANT: [Patient][ems] ED PROVIDER(S): [Anthony Varghese MD] CHIEF COMPLAINT: Fall, left ankle pain HISTORY OF PRESENT ILLNESS: The patient is a 78-year-old female who states that she was getting off of her barstool when she tripped and injured her left ankle. She thinks she caught her slipper. The patient did not strike her head, there is no headache or neck pain or back pain, no chest pain. She is not on blood thinning agents. She complains only of pain in the area of the left ankle. There is no left knee pain. The patient did not receive any pain medication in route. The patient does not want any pain medication. PMHx/PSHx/Social Hx: See Below PHYSICAL EXAM: GENERAL: Patient is in no acute distress. HEENT: No acute trauma, normocephalic atraumatic, mucous membranes moist, no nasal congestion. NECK: No stridor, no adenopathy, nontender cervical spine, trachea is midline. LUNGS: Clear to auscultation bilaterally, no wheeze, no rhonchi, breath sounds equal. HEART: Without murmurs gallops or rubs, regular rate and rhythm. ABDOMEN: Soft, nontender, no peritonitis. EXTREMITIES: No cyanosis. The patient has an obvious posterior/lateral deformity of her left ankle. The injury is closed. There is some edema and contusion present. There is no palpable dorsalis pedis pulse. The left Achilles appears intact. She is not tender at the left knee or proximal left fibula. NEUROLOGIC: Oriented x 3, no acute motor or sensory deficits, no focal weakness. SKIN: No jaundice, no diaphoresis. DIFFERENTIAL DIAGNOSIS: Fracture, sprain, strain, neurovascular compromise, dislocation, among others. EMERGENCY DEPARTMENT PROCEDURES: Left ankle joint reduction: This procedure was performed by me. Using traction and palpation, I was able to reduce the dislocated left ankle joint. Patient did not want pain medication or sedation for the reduction. The patient did well with the procedure. A splint was then applied. After the procedure, a strong dorsalis pedis pulse was felt. She could wiggle her toes. No sensory deficits. Splint Care: After the ortho glass splint was placed by the stereo plotter operator, I examined the splint and confirmed proper application/placement/position. Neurovascular status was intact both proximal and distal to the splinted area. MEDICAL DECISION MAKING: There is no leukocytosis or concerning anemia. There is a normal platelet count. No renal failure or significant electrolyte abnormality. On exam, the patient had an obvious closed injury to her left ankle. The ankle was fractured and the joint was dislocated. There was no palpable dorsalis pedis pulse initially. The fracture/dislocation was reduced as noted above. There was an immediate return of her dorsalis pedis pulse. A splint was applied to hold the fracture/dislocation in proper position. Films of the left tib-fib and left ankle were performed, a trimalleolar ankle fracture was seen. There was minimal joint displacement. A splint was noted. A CT of the left ankle and foot were performed, there was a trimalleolar left ankle fracture, no foot fracture. Minimal ankle joint displacement. I did call and speak with orthopedics, the patient does not need emergent orthopedic intervention. The patient lives alone, she is not going to be able to care for herself with this trimalleolar fracture/dislocation. I did speak with the patient and case management. The on-call hospitalist was consulted. The patient will require a medical admission with an orthopedic consult. This injury will likely require surgery. Of note, no evidence for injury anywhere else across her body from this fall. Prior/Outside records/notes reviewed: Today's EMS notes describing her presentation and transport to this hospital. Imaging/x-ray results per my interpretation: Left ankle film and left tib-fib films show a trimalleolar left ankle fracture with a splint in place. No proximal fibular fracture. Minimal ankle joint displacement at this point. Chronic Medical/Social conditions affecting care: Advanced age. Lives alone. Care/Management discussed with: Orthopedics-Dr. You. Case management and the on-call hospitalist. Level of care consideration(s): After review of the information above and other included data: --I believe the patient requires escalation of care to admission DISPOSITION: Admission with orthopedic consult Past Med/Surg History Problem List Fall (Acute) Closed dislocation of left ankle (Acute) Closed left ankle fracture (Acute) HTN (hypertension) Trimalleolar fracture of left ankle GERD (gastroesophageal reflux disease) HLD (hyperlipidemia) CAD (coronary artery disease) Medical History Hx of myocardial infarction Gastric ulcer Surgical History Hx of tubal ligation S/P right rotator cuff repair History of tonsillectomy and adenoidectomy Hx of colonoscopy Hx of esophagogastroduodenoscopy H/O lumbar discectomy S/P cervical spinal fusion Social History Smoking Status: Never smoker Preferred Language: Slovenian Feels Safe at Home: Yes Allergies Allergies Allergy/AdvReac Type Severity Reaction Status Date / Time Penicillins Allergy Intermediate HIVES Verified 12/09/23 12:55 Cephalosporins Allergy Mild RASH Verified 12/09/23 12:55 clams Allergy Mild "ALMOST Verified 12/09/23 12:55 PASSED OUT" KARINE Inhibitors Allergy Unknown RASH Verified 12/09/23 12:55 oxycodone AdvReac Intermediate Nausea Verified 12/09/23 14:32 Sulfa (Sulfonamide AdvReac Unknown Weakness Verified 12/09/23 12:55 Antibiotics) Home Meds Home Medications Medication Instructions Recorded Confirmed escitalopram oxalate 20 mg tablet 20 mg PO QAM ##0 05/28/10 12/09/23 (Lexapro) hydrochlorothiazide 25 mg tablet 25 mg PO 4XWK #0 tabs 03/08/15 12/09/23 amlodipine 5 mg tablet 5 mg PO QAM #0 tabs 08/01/15 12/09/23 atorvastatin 40 mg tablet 40 mg PO HS #0 tabs 08/01/15 12/09/23 lutein 40 mg capsule 40 mg PO QAM ##0 05/08/16 12/09/23 aspirin 81 mg tablet,delayed 81 mg PO HS #0 tabs 05/14/17 12/09/23 release coenzyme Q10 100 mg capsule 100 mg PO QPM #0 caps 05/14/17 12/09/23 (CoQ-10) acetaminophen 650 mg 1,300 mg PO BID 12/09/23 12/09/23 tablet,extended release budesonide 0.5 mg/2 mL suspension 0.5 mg inhalation HS 12/09/23 12/09/23 for nebulization losartan 50 mg tablet 50 mg PO QAM 12/09/23 12/09/23 potassium chloride 10 mEq 10 meq PO QAM 12/09/23 12/09/23 capsule,extended release Results & Data (ED) Vital Signs Vital Signs - 24 hr 12/09/23 10:30 12/09/23 10:41 12/09/23 10:41 Temperature 36.7 C 36.8 C Temperature Source Oral Oral Pulse Rate 72 66 Pulse Rate [Right Finger] 82 Pulse Rhythm Regular Pulse Rhythm [Right Finger] Regular Pulse Strength Normal Pulse Strength [Right Finger] Normal Respiratory Rate 20 20 Respiratory Effort / Characteristics Non-Labored Spontaneous Non-Labored Spontaneous Respiratory Depth Normal Normal Respiratory Pattern Regular Regular Blood Pressure 173/82 H Blood Pressure [Right Arm] 173/82 H Blood Pressure Mean 112 Blood Pressure Mean [Right Arm] 112 Blood Pressure Position Semi-fowlers Blood Pressure Position [Right Arm] Semi-fowlers Pulse Oximetry 99 98 Oxygen Delivery Method Room Air Room Air Sepsis Recent Fever Within 48 Hours No Sepsis New/Unexplained Change in Mental Status N/A Sepsis Action Taken by Nursing No Action Required Home Medications Current Medication List: was personally reviewed by me Laboratory Data Attestation: I reviewed the patient's lab results. 12/09/23 11:50 12/09/23 11:50 Lab Results 12/09/23 Range/Units 11:50 WBC 10.13 (4.8-10.8) K/ul RBC 4.25 (4.20-5.40) M/uL Hgb 13.5 (12.0-16.0) g/dl Hct 39.4 (37.0-47.0) % MCV 92.7 (80.0-100.0) fL MCH 31.8 (25.0-34.0) pg MCHC 34.3 (32.0-36.0) g/dL RDW Std Deviation 41.2 (36.4-46.3) fL RDW Coeff of Kathrine 12.2 (11.5-14.5) % Plt Count 215 (130-400) K/uL MPV 9.0 L (9.4-12.4) fL Sodium 138 (136-145) mmol/L Potassium 4.1 (3.5-5.1) mmol/L Chloride 103 (98-107) mmol/L Carbon Dioxide 29 (21-32) mmol/L Anion Gap 6 (3-11) BUN 16 (6-23) mg/dl Creatinine 0.87 (0.6-1.2) mg/dl Est Cr Clr Drug Dosing 47.2 ml/min Est GFR ( Amer) 73.4 ml/min Est GFR (Non-Af Amer) 63.4 ml/min BUN/Creatinine Ratio 18.4 (10-20) Glucose 121 H (70-99(Fasting)) mg/dl Calcium 9.8 (8.6-10.3) mg/dl Administered Medications Bisacodyl (Bisacodyl 5 Mg Tabec) 5 mg PO DAILY LINUS Stop: 01/08/24 14:49 Last Admin: 12/09/23 15:19 Dose: Not Given Documented By: TBK Polyethylene Glycol (Polyethylene (Miralax) 17 Gm Pack) 17 gm PO DAILY LIUNS Stop: 01/08/24 14:49 Last Admin: 12/09/23 15:19 Dose: Not Given Documented By: TBK Discontinued Medications Hydrochlorothiazide (Hydrochlorothiazide 25 Mg Tab) 25 mg PO NOW STA Stop: 12/09/23 12:51 Last Admin: 12/09/23 14:34 Dose: 25 mg Documented By: CAW Losartan Potassium (Losartan Potassium 25 Mg Tab) 25 mg PO NOW STA Stop: 12/09/23 13:00 Last Admin: 12/09/23 13:44 Dose: Not Given Documented By: CAW Losartan Potassium (Losartan Potassium 50 Mg Tab) 50 mg PO ONCE ONE Stop: 12/09/23 13:48 Last Admin: 12/09/23 14:34 Dose: 50 mg Documented By: CAW Imaging Data Radiologist's Impression: Ankle X-Ray 12/09/23 10:35 XR ankle LT min 3V routine HISTORY: 78 years-old Female fx, dislocation, reduced, splinted acute fracture of the left lower leg COMPARISON: Tibia and fibular radiographs of same day TECHNIQUE: 3 views of the left ankle FINDINGS: Acute appearing appearing comminuted distal fibular fracture with fracture extension into the distal tibiofibular syndesmosis. Posterior displacement of approximately a centimeter. Medial clear space measures approximately 6 mm. Additionally, there is an acute appearing medial malleolar fracture without significant displacement. Posterior malleolar fracture is not well visualized secondary to limited lateral view. Equivocal midfoot widening with possible midfoot fracture not well evaluated on this exam. Study is limited secondary to overlying casting material. IMPRESSION: 1. Limited study secondary to no true lateral image obtained. 2. Acute trimalleolar ankle fracture as above with displacement of the lateral and posterior malleolar fractures. 3. Equivocal widening of the medial clear space. 4. Possible midfoot widening/midfoot fracture not well evaluated on this study. Follow-up radiographs should be obtained to exclude a Lisfranc injury. ACT 112: Negative or not required by law. The above report was generated using voice recognition software. It may contain grammatical, syntax or spelling errors. Electronically signed by: Yovany Seay M.D. 12/09/2023 11:27 AM Tibia/Fibula X-Ray 12/09/23 10:37 LEFT TIBIA AND FIBULA 2 VIEWS CLINICAL HISTORY: Fall. Post reduction examination. FINDINGS: AP and crosstable lateral views of the left tibia and fibula are obtained. No prior studies are available for comparison at the time of dictation. The examination is performed through a splint, obscuring fine bony detail. The skeletal structures are osteopenic. There is a comminuted fracture of the distal fibula with mildly displaced fragments. No tibial fracture is clearly seen. Soft tissue swelling is seen around the ankle. A 1.6 cm linear ossific density along the proximal tibial metadiaphysis is indeterminate and may represent an osteochondroma. There is mild widening of the medial joint space of the ankle. The knee joint is grossly preserved. IMPRESSION: 1. Comminuted fracture of the distal fibula with mild widening of the medial joint space of the ankle. 2. No tibial fracture is clearly seen. Electronically signed by: Anthony Matson M.D. 12/09/2023 11:[address] 12/09/23 11:40 CT SCAN OF THE LEFT FOOT WITHOUT IV CONTRAST CLINICAL HISTORY: Fracture. COMPARISON STUDY: Radiographs of the left ankle dated 12/09/2023. TECHNIQUE: CT scan of the left foot was performed from the distal tibia and fibula to the base of the foot. Images are reviewed in the axial, sagittal, and coronal planes. IV contrast was not administered for this examination. A dose lowering technique was utilized adhering to the principles of ALARA. FINDINGS: The skeletal structures are osteopenic. There is a comminuted oblique fracture through the distal fibula with displaced fragment. There is also a comminuted fracture of the distal tibia with intra-articular extension. This involves the medial and posterior malleolus. Near anatomic alignment is maintained at the ankle mortise. No additional fracture is identified in the foot. An os trigonum is incidentally noted. There is an ankle joint effusion. Soft tissue edema is seen around the ankle. The Achilles tendon is intact as visualized. The regional musculature is normal as imaged. IMPRESSION: 1. Comminuted trimalleolar fracture at the ankle joint with displaced fragments as above. 2. No additional fracture is seen in the foot. ACT 112: Negative or not required by law. Dictated: 12/09/2023 12:43 PM Transcribed: 12/09/2023 12:53 PM French [id number] Electronically signed by: Anthony Matson M.D. 12/09/2023 1:[address] 12/09/23 11:[address] DOSE: 667.55 mGy.cm HISTORY: Left ankle fx, pain TECHNIQUE: Multiaxial CT images of the left ankle were performed and reformatted in the sagittal and coronal plane without the use of contrast. A dose lowering technique was utilized adhering to the principles of ALARA. COMPARISON: None. FINDINGS: Please refer to the same day left foot CT report for further evaluation of the left foot. There is redemonstration of the mildly displaced trimalleolar left ankle fracture. No dislocation or significant widening of the ankle mortise by CT. There is soft tissue swelling within the left ankle. The medial malleolus fracture demonstrates up to 3 mm of depression. The posterior malleolus fracture and distal fibular fracture are slightly comminuted and demonstrates up to 3 mm of posterior displacement. The medial malleolus fracture is also slightly comminuted. There are few punctate foci of soft tissue gas adjacent to the fracture sites. However, no evidence for an open fracture. This could be due to the posttraumatic changes. IMPRESSION: Redemonstration of the slightly comminuted and mildly displaced trimalleolar left ankle fracture. No dislocation. ACT 112: Negative or not required by law. Electronically signed by: Noe Stewart M.D. 12/09/2023 12:41 PM Discharge Plan Visit Data Chief Complaint: Fall Stated Complaint: FALL, L ANKLE INJURY ED Provider: Anthony Varghese Discharge Problem: Closed left ankle fracture, Closed dislocation of left ankle, Fall Patient Disposition: Admitted As Inpatient Condition: Fair Discharge Instructions Interventions: ED Discharge Assessment Last Done: 12/09/23 14:26 Discharge Problem: Closed left ankle fracture Qualifiers: Encounter type: initial encounter Qualified Code(s): S82.892A - Other fracture of left lower leg, initial encounter for closed fracture Closed dislocation of left ankle Qualifiers: Encounter type: initial encounter Qualified Code(s): S93.05XA - Dislocation of left ankle joint, initial encounter Fall Qualifiers: Encounter type: initial encounter Qualified Code(s): W19.XXXA - Unspecified fall, initial encounter
--- NOTE | 2023-12-09 11:12 | XRay Report ---
LEFT TIBIA AND FIBULA 2 VIEWS CLINICAL HISTORY: Fall. Post reduction examination. FINDINGS: AP and crosstable lateral views of the left tibia and fibula are obtained. No prior studies are available for comparison at the time of dictation. The examination is performed through a splint , obscuring fine bony detail. The skeletal structures are osteopenic. There is a comminuted fracture of the distal fibula with mildly displaced fragments. No tibial fracture is clearly seen. Soft tissue swelling is seen around the ankle. A 1.6 cm linear ossific density along the proximal tibial metadia physis is indeterminate and may represent an osteochondroma. There is mild widening of the medial michelle nt space of the ankle. The knee joint is grossly preserved. IMPRESSION: 1. Comminuted fracture of the distal fibula with mild widening of the medial joint space of the ankle . 2. No tibial fracture is clearly seen. Electronically signed by: Anthony Matson M.D. 12/09/2023 11:10 AM
--- NOTE | 2023-12-09 11:28 | XRay Report ---
XR ankle LT min 3V routine HISTORY: 78 years-old Female fx, dislocation, reduced, splinted acute fracture of the left lower leg COMPARISON: Tibia and fibular radiographs of same day TECHNIQUE: 3 views of the left ankle FINDINGS: Acute appearing appearing comminuted distal fibular fracture with fracture extension into the distal tibiofibular syndesmosis. Posterior displacement of approximately a centimeter. Medial clear space me asures approximately 6 mm. Additionally, there is an acute appearing medial malleolar fracture withou t significant displacement. Posterior malleolar fracture is not well visualized secondary to limited lateral view. Equivocal midfoot widening with possible midfoot fracture not well evaluated on this ex am. Study is limited secondary to overlying casting material. IMPRESSION: 1. Limited study secondary to no true lateral image obtained. 2. Acute trimalleolar ankle fracture as above with displacement of the lateral and posterior malleola r fractures. 3. Equivocal widening of the medial clear space. 4. Possible midfoot widening/midfoot fracture not well evaluated on this study. Follow-up radiographs should be obtained to exclude a Lisfranc injury. ACT 112: Negative or not required by law. The above report was generated using voice recognition software. It may contain grammatical, syntax o r spelling errors. Electronically signed by: Yovany Seay M.D. 12/09/2023 11:27 AM
[2023-12-09 12:09] LABS: Hematocrit (blood only) 39.4 % (37.0-47.0); Hemoglobin 13.5 g/dl (12.0-16.0); Mean Corpuscular Hemoglobin 31.8 pg (25.0-34.0); Mean Corpuscular Hgb Conc 34.3 g/dL (32.0-36.0); Mean Corpuscular Volume 92.7 fL (80.0-100.0); Platelet Count 215 K/uL (130-400); RDW Coefficient of Variation 12.2 % (11.5-14.5); RDW Standard Deviation 41.2 fL (36.4-46.3); Red Blood Count 4.25 M/uL (4.20-5.40); White Blood Count 10.13 K/ul (4.8-10.8)
[2023-12-09 12:23] LABS: BUN Creatinine Ratio 18.4 (10-20); Calcium 9.8 mg/dl (8.6-10.3); Creatinine Clr Calc Pharmacy 47.2 ml/min; Est GFR (African American) 73.4 ml/min; Est GFR (Non-African American) 63.4 ml/min; Potassium 4.1 mmol/L (3.5-5.1)
--- NOTE | 2023-12-09 12:36 | History & Physical Report ---
Date of Service December 09, 2023 Assessment & Plan (1) Trimalleolar fracture of left ankle: Plan: - Admit to med surg - Xray ankle and tib/fib reviewed personally showing comminuted fracture of the distal fibula with widening of the ankle, trimalleolar ankle fracture - CT lower ext pending - Ortho consulted- ER discussed with Dr. You, will admit as she is unable to go home as she lives by herself, and would not be able to function at home until surgery performed. - Will keep NPO after midnight in case able to make time in the OR tomorrow - Obtain CXR and EKG preoperatively - Pt reports does not want oxycodone, agreeable to tramadol with a bowel regimen - ordered - PT/OT - Ok with bedside commode and assist from nursing to pivot on good leg for transfers for now. (2) CAD (coronary artery disease): Plan: - Hx of such in in 2010 when she had issues with bleeding ulcer which caused anemia and promoted heart attack. - Hx of one cardiac stent May [address] Esposito (3) HTN (hypertension): Plan: - Give dose of losartan 25 mg and HCTZ now as missed am meds. Amlodipine to start in am - BP elevated on admission, trend (4) HLD (hyperlipidemia): Plan: - Cont statin therapy - Chronic, stable (5) GERD (gastroesophageal reflux disease): Plan: - Hx of peptic ulcer in 2010, continue famotidine - Stable, chronic DVT ppx: teds, scds, no chemical ppx in the setting of possible OR tomorrow Lines: 2 PIV Diet: Allow HH diet today and NPO at midnight CODE: FULL Dispo: From home, likely to remain in the hospital x 1-2 days pending OR procedure tomorrow Pt is moderate surgical risk due to age and hx of CAD. At this time no chest complaints. CXR is clear. Ok to proceed with surgical procedure from medicine standpoint. A total of 75 minutes were spent with greater than 50% of that time face to face with the patient, personally reviewing all current laboratories, imaging studies, past medication reconciliation, outpatient chart review, and discussion with specialists to collaborate care for the patient with attending. Please see attending documentation for corrections and/or additions. History of Present Illness Chief Complaint: Fall Primary Care Provider: Ed Chu MD This is a 78-year-old female with PMHx of CAD, HLD, GERD, episode of major depression who presents to the hospital with acute complaints of mechanical fall where she slipped from a barstool in her kitchen, states that she thinks that she tripped over her slipper, and fell to the ground injuring her left ankle. Denies hitting her head, no sycope. She states pain is well controlled. Took tylenol this morning as she normally does twice daily. She missed all her other meds this morning including BP meds. Pt lives at home alone. EMS had brought her to the hospital when she was unable to bear weight and had an obvious deformity of the ankle. In the ER her fracture was reduced due to lack of pulse, and pulse quickly returned after ankle was set. Pt feels slightly nauseous, states did not move bowels today. Pt reports hx of constipation and impaction with use of oxycodone in the past, and does not want this medication. She is agreeable to bowel regimen, and will try tramadol. Allergies Allergy/AdvReac Type Severity Reaction Status Date / Time Penicillins Allergy Intermediate HIVES Verified 12/09/23 12:55 Cephalosporins Allergy Mild RASH Verified 12/09/23 12:55 clams Allergy Mild "ALMOST Verified 12/09/23 12:55 PASSED OUT" KARINE Inhibitors Allergy Unknown RASH Verified 12/09/23 12:55 oxycodone AdvReac Intermediate Nausea Verified 12/09/23 14:32 Sulfa (Sulfonamide AdvReac Unknown Weakness Verified 12/09/23 12:55 Antibiotics) Home Medications Medication Instructions Recorded Confirmed Type escitalopram oxalate 20 mg tablet 20 mg PO QAM ##0 05/28/10 12/09/23 History (Lexapro) hydrochlorothiazide 25 mg tablet 25 mg PO 4XWK #0 tabs 03/08/15 12/09/23 History amlodipine 5 mg tablet 5 mg PO QAM #0 tabs 08/01/15 12/09/23 History atorvastatin 40 mg tablet 40 mg PO HS #0 tabs 08/01/15 12/09/23 History lutein 40 mg capsule 40 mg PO QAM ##0 05/08/16 12/09/23 History aspirin 81 mg tablet,delayed 81 mg PO HS #0 tabs 05/14/17 12/09/23 History release coenzyme Q10 100 mg capsule 100 mg PO QPM #0 caps 05/14/17 12/09/23 History (CoQ-10) acetaminophen 650 mg 1,300 mg PO BID 12/09/23 12/09/23 History tablet,extended release budesonide 0.5 mg/2 mL suspension 0.5 mg inhalation HS 12/09/23 12/09/23 History for nebulization losartan 50 mg tablet 50 mg PO QAM 12/09/23 12/09/23 History potassium chloride 10 mEq 10 meq PO QAM 12/09/23 12/09/23 History capsule,extended release Past Med/Surg History Problem List Fall (Acute) Closed dislocation of left ankle (Acute) Closed left ankle fracture (Acute) HTN (hypertension) Trimalleolar fracture of left ankle GERD (gastroesophageal reflux disease) HLD (hyperlipidemia) CAD (coronary artery disease) Medical History Hx of myocardial infarction Gastric ulcer Surgical History Hx of tubal ligation S/P right rotator cuff repair History of tonsillectomy and adenoidectomy Hx of colonoscopy Hx of esophagogastroduodenoscopy H/O lumbar discectomy S/P cervical spinal fusion Social History Smoking Status: Never smoker Hx Alcohol Use: Yes Alcohol type: wine Hx Substance Use: No Preferred Language: Citizen Of [place] Communication Ability: Effective Lifestyle Director Required: Yes Beliefs That Will Affect Care: None Current Living Situation: Alone Other Information That Helps Us Care for You: No Feels Safe at Home: Yes Safety Concerns: Feels Safe At This Time Review of Systems Review of Systems: Constitutional: No fever, sweats or chills Eyes: No diplopia, no worsening or blurred vision ENT: normal hearing, no trouble swallowing Respiratory: No cough, sputum, dyspnea at rest or on exertion Cardiovascular: No chest pain, tightness or palpitations Abdomen: No pain, nausea, vomiting, diarrhea or constipation Musculoskeletal: + as per HPI with left ankle, otherwise No joint pain, calf pain, swelling Neurologic: No weakness, numbness/tingling, or balance problems Psychiatric: No anxiety or depression Skin: No rash or itch Physical Exam Physical Exam: General: awake, alert, no apparent distress, appears healthy, younger than stated age, white female Head: Normocephalic, atraumatic ENT: PERRL, EOMI, no pharyngeal exudate, mucous membranes moist Chest: Clear to auscultation, on room air, no adventitious breath sounds Cardiac: Regular rate and rhythm, no murmur, no JVD, normal peripheral pulses, good capillary refill Abdominal: NABS x 4 quadrants, soft, nondistended, nontender to palpation, no rebound or guarding Extremities: Left ankle is in splint, good sensation to light touch, good color of toes, can wiggle toes without difficulty. Normal inspection, no peripheral edema or erythema, calfs nontender to palpation Psych: Normal mood and affect Neuro: AAO x 3, strength intact bilaterally and rated 5/5, no motor deficits, speech is clear, no peripheral sensory deficits Results & Data Results & Data Vital Signs (Past 12 Hours) Vital Signs Temp Pulse Pulse Resp BP BP Pulse Ox 12/09/23 10:41 36.8 C 82 20 173/82 H 98 12/09/23 10:41 36.7 C 66 20 173/82 H 99 12/09/23 10:30 72 O2 Del Method 12/09/23 10:41 Room Air 12/09/23 10:41 Room Air 12/09/23 10:30 Laboratory Results 12/09/23 11:50 WBC 10.13 RBC 4.25 Hgb 13.5 Hct 39.4 MCV 92.7 MCH 31.8 MCHC 34.3 RDW Std Deviation 41.2 RDW Coeff of Kathrine 12.2 Plt Count 215 MPV 9.0 L Sodium 138 Potassium 4.1 Chloride 103 Carbon Dioxide 29 Anion Gap 6 BUN 16 Creatinine 0.87 Est Cr Clr Drug Dosing 47.2 Est GFR ( Amer) 73.4 Est GFR (Non-Af Amer) 63.4 BUN/Creatinine Ratio 18.4 Glucose 121 H Calcium 9.8 Diagnostic Findings Ankle X-Ray 12/09/23 10:35 XR ankle LT min 3V routine HISTORY: 78 years-old Female fx, dislocation, reduced, splinted acute fracture of the left lower leg COMPARISON: Tibia and fibular radiographs of same day TECHNIQUE: 3 views of the left ankle FINDINGS: Acute appearing appearing comminuted distal fibular fracture with fracture extension into the distal tibiofibular syndesmosis. Posterior displacement of approximately a centimeter. Medial clear space measures approximately 6 mm. Additionally, there is an acute appearing medial malleolar fracture without significant displacement. Posterior malleolar fracture is not well visualized secondary to limited lateral view. Equivocal midfoot widening with possible midfoot fracture not well evaluated on this exam. Study is limited secondary to overlying casting material. IMPRESSION: 1. Limited study secondary to no true lateral image obtained. 2. Acute trimalleolar ankle fracture as above with displacement of the lateral and posterior malleolar fractures. 3. Equivocal widening of the medial clear space. 4. Possible midfoot widening/midfoot fracture not well evaluated on this study. Follow-up radiographs should be obtained to exclude a Lisfranc injury. ACT 112: Negative or not required by law. The above report was generated using voice recognition software. It may contain grammatical, syntax or spelling errors. Electronically signed by: Yovany Seay M.D. 12/09/2023 11:27 AM Tibia/Fibula X-Ray 12/09/23 10:37 LEFT TIBIA AND FIBULA 2 VIEWS CLINICAL HISTORY: Fall. Post reduction examination. FINDINGS: AP and crosstable lateral views of the left tibia and fibula are obtained. No prior studies are available for comparison at the time of dictation. The examination is performed through a splint, obscuring fine bony detail. The skeletal structures are osteopenic. There is a comminuted fracture of the distal fibula with mildly displaced fragments. No tibial fracture is clearly seen. Soft tissue swelling is seen around the ankle. A 1.6 cm linear ossific density along the proximal tibial metadiaphysis is indeterminate and may represent an osteochondroma. There is mild widening of the medial joint space of the ankle. The knee joint is grossly preserved. IMPRESSION: 1. Comminuted fracture of the distal fibula with mild widening of the medial joint space of the ankle. 2. No tibial fracture is clearly seen. Electronically signed by: Anthony Matson M.D. 12/09/2023 11:[address] 12/09/23 11:[address] DOSE: 667.55 mGy.cm HISTORY: Left ankle fx, pain TECHNIQUE: Multiaxial CT images of the left ankle were performed and reformatted in the sagittal and coronal plane without the use of contrast. A dose lowering technique was utilized adhering to the principles of ALARA. COMPARISON: None. FINDINGS: Please refer to the same day left foot CT report for further evaluation of the left foot. There is redemonstration of the mildly displaced trimalleolar left ankle fracture. No dislocation or significant widening of the ankle mortise by CT. There is soft tissue swelling within the left ankle. The medial malleolus fracture demonstrates up to 3 mm of depression. The posterior malleolus fracture and distal fibular fracture are slightly comminuted and demonstrates up to 3 mm of posterior displacement. The medial malleolus fracture is also slightly comminuted. There are few punctate foci of soft tissue gas adjacent to the fracture sites. However, no evidence for an open fracture. This could be due to the posttraumatic changes. IMPRESSION: Redemonstration of the slightly comminuted and mildly displaced trimalleolar left ankle fracture. No dislocation. ACT 112: Negative or not required by law. Electronically signed by: Noe Stewart M.D. 12/09/2023 12:41 PM Code Status & VTE Plan Code Status DNR/DNI - discussed with pt at bedside Supervising Physician Co-Signing Physician Notes Attending Addendum: Case reviewed with the advanced practitioner. I have personally performed a history and physical examination on the patient. I have reviewed the advanced practitioner's documentation on the date of service referenced in note, and I agree with, and take responsibility for the plan of care. please refer to her notes for full details patient seen and examined, records reviewed by myself as well on exam, patient seen resting in bed, comfortable pain well controlled no chest pain, dyspnea, palpitations, dizziness no other symptoms VS noted and reviewed oriented x 3 , not in distress, speaks in sentences with no effort nor accessory muscle use normal rate, regular rhythm, no murmurs clear breath sounds bilaterally non distended, soft, nontender no bipedal edema, erythema, warmth (+) splint on the L lower leg/foot no neuro deficits all labs, imaging noted and reviewed ASSESSMENT AND PLAN LEFT TIBIA/ANKLE FRACTURE Status post mechanical fall plan for surgery tomorrow Moderate to high risk for cardiopulmonary complications in light of advanced age, history of CAD, and other comorbidities No medical contraindication to proceed with orthopedic surgery History of CAD Patient is quite active for age Goes to the gym twice a week, uses treadmill for at least 10 minutes, does yard work and walks her dogs, no chest pain, shortness of breath or dizziness Continue usual cardiac medications other diagnoses and plan of care as per advanced practitioner's notes Sharif Frazier MD
--- NOTE | 2023-12-09 12:42 | CT Scan Report ---
LEFT ANKLE CT CT DOSE: 667.55 mGy.cm HISTORY: Left ankle fx, pain TECHNIQUE: Multiaxial CT images of the left ankle were performed and reformatted in the sagittal and coronal plane without the use of contrast. A dose lowering technique was utilized adhering to the pr inciples of SOREN. COMPARISON: None. FINDINGS: Please refer to the same day left foot CT report for further evaluation of the left foot. T here is redemonstration of the mildly displaced trimalleolar left ankle fracture. No dislocation or s ignificant widening of the ankle mortise by CT. There is soft tissue swelling within the left ankle. The medial malleolus fracture demonstrates up to 3 mm of depression. The posterior malleolus fracture and distal fibular fracture are slightly comminuted and demonstrates up to 3 mm of posterior displac ement. The medial malleolus fracture is also slightly comminuted. There are few punctate foci of soft tissue gas adjacent to the fracture sites. However, no evidence for an open fracture. This could be due to the posttraumatic changes. IMPRESSION: Redemonstration of the slightly comminuted and mildly displaced trimalleolar left ankle fracture. No dislocation. ACT 112: Negative or not required by law. Electronically signed by: Noe Stewart M.D. 12/09/2023 12:41 PM
--- NOTE | 2023-12-09 13:42 | CT Scan Report ---
CT SCAN OF THE LEFT FOOT WITHOUT IV CONTRAST CLINICAL HISTORY: Fracture. COMPARISON STUDY: Radiographs of the left ankle dated 12/09/2023. TECHNIQUE: CT scan of the left foot was performed from the distal tibia and fibula to the base of the foot. Images are reviewed in the axial, sagittal, and coronal planes. IV contrast was not administer ed for this examination. A dose lowering technique was utilized adhering to the principles of ALARA. FINDINGS: The skeletal structures are osteopenic. There is a comminuted oblique fracture through the distal fibula with displaced fragment. There is also a comminuted fracture of the distal tibia with i ntra-articular extension. This involves the medial and posterior malleolus. Near anatomic alignment i s maintained at the ankle mortise. No additional fracture is identified in the foot. An os trigonum i s incidentally noted. There is an ankle joint effusion. Soft tissue edema is seen around the ankle. T he Achilles tendon is intact as visualized. The regional musculature is normal as imaged. IMPRESSION: 1. Comminuted trimalleolar fracture at the ankle joint with displaced fragments as above. 2. No additional fracture is seen in the foot. ACT 112: Negative or not required by law. Dictated: 12/09/2023 12:43 PM Transcribed: 12/09/2023 12:53 PM French [id number] Electronically signed by: Anthony Matson M.D. 12/09/2023 1:40 PM
[2023-12-09] MEDS: LOSARTAN POTASSIUM 25 MG TAB PO STA (13:44)
[2023-12-09] MEDS: LOSARTAN POTASSIUM 50 MG TAB PO ONE (14:34)
[2023-12-09] MEDS: hydroCHLOROthiazide 25 MG TAB PO STA (14:34)
[2023-12-09] MEDS ORDERED: traMADol HCL 50 MG TABLET PO PRN (14:50)
[2023-12-09] MEDS ORDERED: ONDANSETRON INJ 2 MG/ML 2 ML VIAL IV PRN (14:50)
[2023-12-09] MEDS: POLYETHYLENE (MIRALAX) 17 GM PACK PO SCH (15:19)
[2023-12-09] MEDS: bisacodyL 5 MG TABEC PO SCH (15:19)
[2023-12-09] MEDS ORDERED: VANCOMYCIN CONSULT ACTIVE PRN (15:30)
--- NOTE | 2023-12-09 15:30 | Orthopedic Consultation ---
Date of Service December 09, 2023 Assessment & Plan (1) Trimalleolar fracture of left ankle: She lives alone and was unable to be discharged home in the splint. She was admitted to the hospitalist service. NPO after midnight. Plan for ORIF tomorrow with Dr. Garcia. Procedure was explained including the risks, benefits, alternatives to surgery. Consent obtained. She should be nonweight bearing on the left leg for 2 weeks post op. She has a history of gastric ulcer but does take a baby aspirin daily. We will order vancomycin for preop antibiotics. Plan She lives alone and was unable to be discharged home in the splint. She was admitted to the hospitalist service. NPO after midnight. Plan for ORIF tomorrow with Dr. Garcia. Procedure was explained including the risks, benefits, alternatives to surgery. Consent obtained. She should be nonweight bearing on the left leg for 2 weeks post op. She has a history of gastric ulcer but does take a baby aspirin daily. We will order vancomycin for preop antibiotics. History of Present Illness Reason for Consultation: . Requesting Physician: . Attending Physician: Sharif Frazier MD .Aisha is a 78 year old patient admitted today with a left trimalleolar ankle fracture. She said she stepped off her barstool at home this morning, twisted her ankle and fell. She was able to get to the phone and call 911. On arrival to the ER she had obvious deformity to the ankle, no palpable dorsalis pedis pulse, and tenting of the skin, but no open areas, and underwent immediate closed reduction. She had a palpable pulse after reduction. Xrays and ct show a trimalleolar ankle fracture. No other complaints at this time. Allergies Allergy/AdvReac Type Severity Reaction Status Date / Time Penicillins Allergy Intermediate HIVES Verified 12/09/23 12:55 Cephalosporins Allergy Mild RASH Verified 12/09/23 12:55 clams Allergy Mild "ALMOST Verified 12/09/23 12:55 PASSED OUT" KARINE Inhibitors Allergy Unknown RASH Verified 12/09/23 12:55 oxycodone AdvReac Intermediate Nausea Verified 12/09/23 14:32 Sulfa (Sulfonamide AdvReac Unknown Weakness Verified 12/09/23 12:55 Antibiotics) Home Medications Medication Instructions Recorded Confirmed Type escitalopram oxalate 20 mg tablet 20 mg PO QAM ##0 05/28/10 12/09/23 History (Lexapro) hydrochlorothiazide 25 mg tablet 25 mg PO 4XWK #0 tabs 03/08/15 12/09/23 History amlodipine 5 mg tablet 5 mg PO QAM #0 tabs 08/01/15 12/09/23 History atorvastatin 40 mg tablet 40 mg PO HS #0 tabs 08/01/15 12/09/23 History lutein 40 mg capsule 40 mg PO QAM ##0 05/08/16 12/09/23 History aspirin 81 mg tablet,delayed 81 mg PO HS #0 tabs 05/14/17 12/09/23 History release coenzyme Q10 100 mg capsule 100 mg PO QPM #0 caps 05/14/17 12/09/23 History (CoQ-10) acetaminophen 650 mg 1,300 mg PO BID 12/09/23 12/09/23 History tablet,extended release budesonide 0.5 mg/2 mL suspension 0.5 mg inhalation HS 12/09/23 12/09/23 History for nebulization losartan 50 mg tablet 50 mg PO QAM 12/09/23 12/09/23 History potassium chloride 10 mEq 10 meq PO QAM 12/09/23 12/09/23 History capsule,extended release Past Med/Surg History Problem List (Updated 12/09/23 @ 15:35 by Anthony Varghese MD) Fall (Acute) Closed dislocation of left ankle (Acute) Closed left ankle fracture (Acute) HTN (hypertension) Trimalleolar fracture of left ankle GERD (gastroesophageal reflux disease) HLD (hyperlipidemia) CAD (coronary artery disease) Medical History Hx of myocardial infarction Gastric ulcer Surgical History Hx of tubal ligation S/P right rotator cuff repair History of tonsillectomy and adenoidectomy Hx of colonoscopy Hx of esophagogastroduodenoscopy H/O lumbar discectomy S/P cervical spinal fusion Social History Smoking Status: Never smoker Preferred Language: Slovenian Feels Safe at Home: Yes Review of Systems All systems reviewed & are unremarkable except as noted in HPI & below. Physical Exam . alert and oriented. NAD Left leg: no knee effusion, no tenderness around the knee. Splint is intact. She has brisk refill of the visualized toes. Able to move toes appropriately. NVI Results & Data Results & Data Laboratory Results . Diagnostic Findings . xrays of the left ankle and ct scan show a trimalleolar ankle fracture PG Care Time/CCT Total # of Minutes Spent Total Time Spent with Patient: Total time spent is greater than 50% in coordination of care (as documented) at patient's floor/unit and/or counseling patient: Coding Level of Care Code 35512 IN/OBS CONSULT LVL 4,60M Diagnoses Trimalleolar fracture of left ankle S82.852A
[2023-12-09] MEDS: ACETAMINOPHEN 500 MG TAB PO SCH (15:38)
[2023-12-09] MEDS: LOSARTAN POTASSIUM 50 MG TAB PO SCH (15:58)
--- NOTE | 2023-12-09 16:05 | XRay Report ---
SINGLE VIEW CHEST CLINICAL HISTORY: Preoperative examination FINDINGS: An AP, portable, upright chest radiograph is compared to study dated 10/24/2010. The heart i s mildly enlarged noting atherosclerotic calcification of the thoracic aorta. The pulmonary vasculatu re is noncongested. Chronic interstitial thickening is similar to previous. The lungs and pleural spa jass are clear. No pneumothorax is seen. The skeletal structures are osteopenic. The bony thorax is gr ossly intact. Fusion hardware is seen in the cervical spine. IMPRESSION: Mild cardiomegaly with no active disease in the chest. ACT 112: Negative or not required by law. Electronically signed by: Anthony Matson M.D. 12/09/2023 4:04 PM
--- OUTSIDE RECORDS SUMMARY | 2023-12-09 19:17 | External Medical Summary | Summary of Care ---
Author Name Unknown Organization [facility] Address [address] [place] [address] Phone [phone] Care Team Providers Care Membership Assistant Name Role Phone Ed Chu MD Primary Care Provider + Reason for Visit * Reason Comments eRx-Medication Refill Encounter Details Date Type Department Care Team (Late st Contact Info) Description 10/09/2023 Refill Cardiology, [facility] [address] [facility] [place] [address] Ginna Corral MD [address] [facility] [place] [address] Atherosclerosis of [place] coronary artery of [place] heart without angina pectoris; S/P angioplasty with stent; HTN, goal below 130/80 Allergies Active Allergy Reactions Criticality Noted Date Comments Gab Inhibitors Cough 06/14/2010 Amoxicillin 10/05/2009 Hives Cephalosporins 10/05/2009 Does not remember Gabapentin Rash 07/21/2020 Sulfa Antibiotics 06/19/2000 [place] like a dish rag documented as of this encounter (statuses as of 10/09/2023) Medications Medication Sig Dispensed Refills Start Date End Date Status LUTEIN 6 MG PO CAPS Take 1 Capsule by mouth in the morning. + Zeaxanthin. 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 May repeat 3 times. If chest pain continues, call 911 25 Tab 5 2 Active CO-ENZYME Q-10 100 MG PO CAPS one capsule in the evening 0 3 Active [place] 3 1000 MG CAPS Take by mouth at bedtime. 0 Active Polyethylene Glycol 3350 17 GM Oral Packet Take 1 Packet by mouth in the morning. 0 Active Docusate Sodium 100 MG Oral Capsule Take 2 Capsules by mouth at bedtime. 0 Active famotidine 20 MG OR 2 times a day. 0 A ctive Acetaminophen 325 MG Oral Tablet Take 2 Tablets by mouth in the morning and 2 Tablets before bedtime. 0 Active Calcium Gummies 250-100-500 MG-UNIT Oral Tablet Chewable (Calcium-Phosphorus- Vitamin D) Take 2 Each by mouth in the morning. 0 Active Hydrocortisone (Perianal) 2.5 % External Cream ADMINISTER INTO RECTUM TWICE A DAY 30 g 23 3 Active Potassium Chloride ER 10 MEQ Oral Capsule Extended ReleaseIndications:A therosclerosis of [place] coronary artery of [place] heart without angina pectoris,S/P angioplasty with stent,Coronary atherosclerosis of [place] coronary artery TAKE 1 CAPSULE DAILY. ( REPLACED TABLETS ) 90 Capsule 3 3 Active Budesonide 0.5 MG/2ML Inhalation Suspension (Pulmicort) Inhale 0.5 mg via nebulizer in the morning and 0.5 mg before bedtime. As directed. 120 mL 12 3 Active hydroCHLOROthiazide 25 MG Oral Tablet (Hydrodiuril)Indicat ions:Atherosclerosis of [place] coronary artery of [place] heart without angina pectoris,S/P angioplasty with stent,Coronary atherosclerosis of [place] coronary artery TAKE 1 TABLET FOUR TIMES PER WEEK (DOSE CHANGE) 50 Tablet 3 3 Active amLODIPine Besylate 5 MG Oral Tablet (Norvasc)Indications :S/P angioplasty with stent TAKE 1 TABLET AT BEDTIME (DOSE CHANGE) 90 Tablet 3 3 Active Vitamin C 500 MG Oral Tablet Chewable Take 1 Tablet by mouth in the morning. 0 Active Quercetin Complex Immune Oral Capsule Take 400 mg by mouth in the morning and 400 mg before bedtime. 0 Active Alicja Powder 2 tsp in the morning 0 Active L-Glutamine 500 MG Oral Capsule Take by mouth daily. 0 Active Saline Nasal [place] 0.65 % Nasal Solution ([place]) Administer into nostril 2 times a day. 0 Active Cromolyn Sodium 5.2 MG/ACT Nasal Aerosol Solution (NasalCrom) Administer into each nostril as needed. 0 Active Escitalopram Oxalate 20 MG Oral Tablet (Lexapro) TAKE 1 TABLET DAILY 90 Tablet 2 4 Active Rosuvastatin Calcium 40 MG Oral Tablet (Crestor)Indications :Dyslipidemia, goal LDL below 70 TAKE 1 TABLET IN THE MORNING 90 Tablet 3 4 Active Losartan Potassium 50 MG Oral Tablet (Cozaar)Indications: Atherosclerosis of [place] coronary artery of [place] heart without angina pectoris,S/P angioplasty with stent,HTN, goal below 130/80 TAKE 1 TABLET IN THE MORNING 90 Tablet 3 4 Active Losartan Potassium 50 MG Oral Tablet (Cozaar)Indications: Atherosclerosis of [place] coronary artery of [place] heart without angina pectoris,S/P angioplasty with stent,HTN, goal below 130/80 Take 1 Tablet by mouth in the morning. 90 Tablet 3 3 10/09/19 24 Discontinued documented as of this encounter (statuses as of 10/09/2023) Active Problems Problem Noted Date Diagnosed Date S/P cervical spinal fusion 03/14/2020 Neuralgia and neuritis 03/14/2020 Well adult exam 03/14/2020 Overview: Prefer "Aisha" 03/28 colon WNL 05/23 colon [facility] tubular adenoma danny 5y Current moderate episode of major depressive disorder without prior episode 07/14/2019 Osteopenia of both hips 04/21/2019 Urinary incontinence in female 07/13/2018 Non-allergic rhinitis 05/21/2016 Thyroid nodule 03/26/2012 ACEI/ARB contraindicated 12/03/2011 Overview: RASH Goiter 08/05/2011 Coronary atherosclerosis of [place] coronary yecenia ry 09/27/2010 Chronic gastric ulcer 09/27/2010 S/P angioplasty with stent 09/27/2010 Spinal stenosis of lumbar re gion without neurogenic claudication 09/27/2010 Hypertrophy of nasal turbinates 10/05/2009 Deviated nasal septum 07/31/2009 Esophageal reflux 07/31/2009 PURE HYPERCHOLESTEROLEM 07/12/2003 Irritable bowel syndrome with mixed bowel habits 05/30/2000 documented as of this encounter (statuses as of 10/09/2023) Resolved Problems Problem Noted Date Diagnosed Date Resolved Date Age-related osteoporosis wit hout current pathological fracture 01/11/2019 04/21/2019 Encounter for examination fo r normal comparison and control in clinical research program 11/02/2018 02/07/2020 Overview: DO NOT DELETE [facility] DETECT Study: Project # [id number], Dioramist: Rafiq Anguiano, PhD. SUMMARY: Goal: Establish test characteristics (sensitivity, specificity, PPV, NPV) of a circulating tumor DNA (ctDNA)-based test for cancer. Hypothesis: Circulating tumor DNA (ctDNA) and elevated protein biomarkers (together, the marker panel) can be detected in asymptomatic individuals with early cancer. Specific Aim 1: Determine the prevalence of a positive marker panel test in a prospective clinical cohort of 10,000 asymptomatic women ages 65 to 75 years. Specific Aim 2: Determine the sensitivity, specificity, positive predictive value (PPV) and negative predictive value (NPV) of a marker panel test to identify histologically proven cancers that develop within 5-years of the marker panel evaluation. CONTACTS: During normal business hours, contact study staff at ; after hours Dioramist via the [facility] hospital well drill operator rotary drill . Please contact study team before resolving/deleting from patients problem list. Study phone number: [phone]. Diagnosis changed due to Research Module. Go to Snapshot for study details. Encounter for examination fo r normal comparison and control in clinical research program 11/02/2018 03/07/2022 Overview: DO NOT DELETE - [employer] DETECT Study: Project # [id number], Dioramist: Murray Manuel, MS, MPH. SUMMARY: Goal: Establish test characteristics (sensitivity, specificity, PPV, NPV) of a circulating tumor DNA (ctDNA)-based test for cancer. - Hypothesis: Circulating tumor DNA (ctDNA) and elevated protein biomarkers (together, the marker panel) can be detected in asymptomatic individuals with early cancer. - Specific Aim 1: Determine the prevalence of a positive marker panel test in a prospective clinical cohort of 10,000 asymptomatic women ages 65 to 75 years. - Specific Aim 2: Determine the sensitivity, specificity, positive predictive value (PPV) and negative predictive value (NPV) of a marker panel test to identify histologically proven cancers that develop within 5-years of the marker panel evaluation. - CONTACTS: During normal business hours, contact study staff at ; after hours Dioramist via the [facility] hospital well drill operator rotary drill . - Please contact study team before resolving/deleting from patients problem list. Study phone number: [phone]. Diagnosis changed due to Research Module. Go to Snapshot for study details. Altered bowel habits 02/27/2018 019 Adverse food reaction 07/05/20162018 Overview: significant vomiting/diarrhea with clams. [place] very weak after eating conch fritter without itching or hives noted. Eyelid dermatitis, allergic/contact 07/05/2016 07/09/2017 Displacement of cervical int ervertebral disc without myelopathy 09/27/2010 03/14/2020 Acquired deformity of nose 10/05/2009 0 07/13/2018 Dyspnea and respiratory abnormality 07/31/2009 07/13/2018 Overview: ICD-10 update of inactive term Major depressive disorder 07/12/2003 Overview: ICD-10 update of inactive term Chronic rhinitis 11/09/2001 05/21/2016 documented as of this encounter (statuses as of 10/09/2023) Immunizations Name Administration Dates Next Due COVID-19 mRNA, LNP-s, No Pre serve, 2-Dose Series (Lumiata) 12/01/2021,09/07/2020,08/17/2020 COVID-19, MRNA-LNP, 23-24, P F, 30 MCG/0.3 mL, 12 YRS AND ABOVE, IM ([employer]-Comirnaty) 04/21/2023 COVID-19, mRNA, LNP-s, PF, B ooster, 100mcg/0.5mg (Moderna) 05/10/2021 Covid-19, Mrna, Lnp-s, Pf, B ivalent, 30 Mcg, IM, 12 yrs and above (Pfizer) 05/03/2022 Pneumococcal Conjugate Vacc, 13 Valent (Prevnar) 01/12/2016 Pneumococcal Polysaccharide PPV23 (Pneumovax) 05/23/2010 Season Influenza, Quad, PF, Adjuvanted, 65+ Yrs, IM (FLUAD) 03/14/2020 Seasonal Influenza, PF, 6 M & above, IM , (FluLaval or Fluzone) 03/17/2018 Seasonal Influenza, Quadriva lent Hd (Fluzone Hd) 04/11/2023,04/10/2022,04/03/2021 Seasonal Influenza, Quadriva lent, No Preserve, IM 03/17/2017,05/03/2016,05/16/2015 Seasonal Influenza, Split, I IV3, With Preserve, Inj 03/08/2014,04/09/2013,04/02/2012,03/11,04/02/2010 Seasonal Influenza, Trivalen t, Adjuvanted, 65+ yrs 04/08/2019 TD - Tetanus/Diptheria (ADULT) 12/19/2006 TDAP (age 10 and older)(Boostrix) 07/03/2016 Varicella Zoster Vaccine (Adult) 06/04/2012 Zoster Vaccine Recombinant (Shingrix) 07/21/2020 ,05/02/2020 documented as of this encounter Social History Tobacco Use Types Packs/Day Years Used Date Smoking Tobacco: Never Smokeless Tobacco: Never Comments:no passive smoke Alcohol Use Standard Drinks/Week Comments Yes 5 (1 standard drink = 0.6 oz pur e alcohol) glass wine most nights. PHQ-2 Answer Date Recorded PHQ Adult Total Score 0 04/11/2023 Hunger Vital Sign Answer Date Recorded Within the past 12 months, y ou worried that your food would run out before you got the money to buy more. Never true 04/11/20 23 Within the past 12 months, t he food you bought just didn't last and you didn't have money to get more. Never true 04/11/2023 Sex and Gender Information Value Date Recorded Sex Assigned at Female 2018 11:40 AM EDT Gender Identity Female 2018 11:40 AM EDT Sexual Orientation Straight 2018 11 :40 AM EDT Job Start Date Occupation Industry Not on file Not on file Not on file documented as of this encounter Miscellaneous Notes * Telephone Encounter - Ginna Corral MD - 10/09/2023 10:08 AM EDTSigned Prescriptions: Disp Refills Losartan Potassium 50 MG Oral Tablet (Coza*90 Tab*3 Sig: TAKE 1 TABLET IN THE MORNING Authorizing Provider: GINNA CORRAL * Telephone Encounter - Michelle Hardy CMA - 10/09/2023 9:40 AM EDTPending Prescriptions: Disp Refills Losartan Potassium 50 MG Oral Tablet [Phar*90 Tab*3 Sig: TAKE 1 TABLET IN THE MORNING * Telephone Encounter - Michelle Hardy CMA - 10/09/2023 9:40 AM EDT Did you pend patient's preferred pharmacy and medication before forwarding?yes Pharmacy: [facility]- [place] Pending Prescriptions: Disp Refills Losartan Potassium 50 MG Oral Tablet (Coz*90 Tab*3 Sig: TAKE 1 TABLET IN THE MORNING Last Visit: 06/18/2023 (in office), Visit date not found (telemedicine) Next Visit: Visit date not found If no future appointments scheduled, and last appointment is greater than a year ago, please schedule patient for a follow-up appointment Last date the medication was ordered: 10-15-2022 Is this request for a controlled substance?No Urine Drug Screen:No results found for this or any previous visit. Patient Phone Numbers mobile [phone] Labs: Lab Results Component Value Date/Time CREAT 0.8 04/11/2023 12:27 PM CREAT 0.81 07/11/2022 12:00 AM CREAT 0.8 07/22/2019 03:33 PM POTASSIUM 4.1 04/11/2023 12:27 PM POTASSIUM 4.1 07/11/2022 12:00 AM POTASSIUM 4.0 07/22/2019 03:33 PM TSH 0.51 04/11/2023 12:27 PM TSH 0.52 05/05/2017 12:44 PM LDLCALC 49 05/28/2023 12:00 AM LDLCALC 97 04/04/2017 08:19 AM LDLDIRECT 59 05/28/2023 12:00 AM LDLDIRECT 93 07/22/2019 03:33 PM LDLDIRECT 136 (H) 01/03/2011 09:37 AM ALT 19 07/11/2022 12:00 AM ALT <5 (L) 07/22/2019 03:33 PM documented in this encounter Plan of Treatment Upcoming Encounters Date Type Department Care Team (Late st Contact Info) Description 04/14/2024 10:20 AM EDT Office Visit Family Practice [facility] [address] [place] [address] Masha Mandel MD [address] [place] [address] Health Maintenance Due Date Last Done Comments DXA Scan 12/26/2023 12/25/2020, 10/05, 06/06/2011, Additional history exists Depression Screening 04/11/2024 04/11/2023 DTaP,Tdap,and Td Vaccines (2 - Td or Tdap) 07/03/2026 07/03/2016, 12/19/2006 COLONOSCOPY-EVERY 5 YRS AGES 18-100 05/28/2027 05/28/2022, 05/28/2022, 06/05/2017, Additional history exists Pneumococcal Vaccine: 65+ Years Completed 01/12/2016, 05/23/2010 Zoster Vaccines Completed 07/21/2020, 04/07, 06/04/2012 Influenza Vaccine (FLU shot) Completed 12/2022, 04/10/2022, 04/03/2021, Additional history exists COVID-19 Vaccine Completed 04/21/2023, , 12/01/2021, Additional history exists GARDASIL-HPV IMMUNIZATION SERIES Aged Out No longer eligible based on patient's age to complete this topic Hepatitis B Aged Out No longer eligi ble based on patient's age to complete this topic MENINGOCOCCAL (MENACTRA/MENVEO) Aged Out No longer eligible based on patient's age to complete this topic documented as of this encounter Medical Devices Not on filedocumented as of this encounter Visit Diagnoses Diagnosis Atherosclerosis of [place] coronary artery of [place] heart without angina pectoris S/P angioplasty with stent Postsurgical percutaneous transluminal coronary angioplasty status HTN, goal below 130/80 Unspecified essential hypertension documented in this encounter Advance Directives Documents on File Type Date Recorded 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
--- OUTSIDE RECORDS SUMMARY | 2023-12-09 19:18 | External Medical Summary | Summary of Care ---
Author Name Unknown Organization [facility] Address [address] [place] [address] Phone [phone] Care Team Providers Care Animal Chiropractor Name Role Phone Ed Chu MD Primary Care Provider + Reason for Visit * Reason Comments eRx-Medication Refill Encounter Details Date Type Department Care Team (Late st Contact Info) Description 08/11/2023 Refill Cardiology, [facility] [address] [place] [address] Deangelo Loaiza PACharlotteC [address] [place] [address] Dyslipidemia, goal LDL below 70* Allergies Active Allergy Reactions Criticality Noted Date Comments Gab Inhibitors Cough 06/14/2010 Amoxicillin 10/05/2009 Hives Cephalosporins 10/05/2009 Does not remember Gabapentin Rash 07/21/2020 Sulfa Antibiotics 06/19/2000 [place] like a dish rag documented as of this encounter (statuses as of 08/11/2023) Medications Medication Sig Dispensed Refills Start Date [...] 0.4 MG SL SUBLIndications:Bel nary atherosclerosis of [place] coronary artery One tablet under tongue if needed for chest pain. May repeat 3 times. If chest pain continues, call 911 25 Tab 5 2 Active CO-ENZYME Q-10 100 MG PO CAPS one capsule in the evening 0 3 Active [place] 3 1000 MG CAPS Take by mouth [...] by mouth in the morning. 0 Active Losartan Potassium 50 MG Oral Tablet (Cozaar)Indications: Atherosclerosis of [place] coronary artery of [place] cross heart without angina pectoris,S/P angioplasty with stent,HTN, goal below 130/80 Take 1 Tablet by mouth in the morning. 90 Tablet 3 3 Active Hydrocortisone (Perianal) 2.5 % External Cream ADMINISTER INTO RECTUM TWICE A DAY 30 g 23 3 Active Potassium Chloride ER 10 MEQ Oral Capsule Extended ReleaseIndications:A therosclerosis of [place] coronary artery of [place] heart without angina pectoris,S/P angioplasty with stent,Coronary atherosclerosis of [place] coronary artery TAKE 1 CAPSULE DAILY. ( REPLACED TABLETS ) 90 Capsule 3 3 Active Budesonide 0.5 MG/2ML Inhalation Suspension (Pulmicort) Inhale 0.5 mg via nebulizer in the morning and 0.5 mg before bedtime. As directed. 120 mL 12 3 Active hydroCHLOROthiazide 25 MG Oral Tablet (Hydrodiuril)Indicat ions:Atherosclerosis of [place] coronary artery of [place] cross heart without angina pectoris,S/P angioplasty with stent,Coronary atherosclerosis of [place] coronary artery TAKE 1 TABLET FOUR TIMES [...] by mouth daily. 0 Active Saline Nasal [place] 0.65 % Nasal Solution ([place]) Administer into nostril 2 times a day. [...] THE MORNING 90 Tablet 3 4 Active Rosuvastatin Calcium 40 MG Oral Tablet (Crestor) Take 1 Tablet by mouth in the morning. 90 Tablet 3 3 08/11/19 24 Discontinued documented as of this encounter (statuses as of 08/11/2023) Active Problems Problem Noted Date Diagnosed Date S/P cervical spinal fusion 03/14/2020 Neuralgia and neuritis 03/14/2020 Well adult exam 03/14/2020 Overview: Prefer "Aisha" 03/28 colon WNL 05/23 colon [facility] tubular adenoma danny 5y Current moderate episode of major depressive disorder without prior episode 07/14/2019 Osteopenia of both hips 04/21/2019 Urinary incontinence in female 07/13/2018 Non-allergic rhinitis 05/21/2016 Thyroid nodule 03/26/2012 ACEI/ARB contraindicated 12/03/2011 Overview: RASH Goiter 08/05/2011 Coronary atherosclerosis of [place] cross coronary yecenia ry 09/27/2010 Chronic gastric ulcer 09/27/2010 S/P angioplasty with stent 09/27/2010 Spinal stenosis of lumbar re gion without neurogenic claudication 09/27/2010 Hypertrophy of nasal turbinates 10/05/2009 Deviated nasal septum 07/31/2009 Esophageal reflux 07/31/2009 PURE HYPERCHOLESTEROLEM 07/12/2003 Irritable bowel syndrome with mixed bowel habits 05/30/2000 documented as of this encounter (statuses as of 08/11/2023) Resolved Problems Problem Noted Date Diagnosed Date Resolved Date Age-related osteoporosis wit hout current pathological fracture 01/11/2019 04/21/2019 Encounter for examination fo r normal comparison and control in clinical research program 11/02/2018 02/07/2020 Overview: DO NOT DELETE Bj [facility] [place] Study: Project # [id number], Chemist Inorganic: Rafiq Anguiano, PhD. SUMMARY: Goal: Establish test [...] contact study staff at ; after hours Chemist Inorganic via the [facility] asphalt heater operator . Please contact study team before resolving/deleting from patients problem list. Study phone number: [phone]. Diagnosis changed due to Research Module. Go to Snapshot for study details. Encounter for examination fo r normal comparison and control in clinical research program 11/02/2018 03/07/2022 Overview: DO NOT DELETE - [facility] DETECT Study: Project # [id number], Chemist Inorganic: [place] Manuel, MS, MPH. SUMMARY: Goal: Establish [...] contact study staff at ; after hours Chemist Inorganic via the [facility] hospital asphalt heater operator . - Please contact study team before resolving/deleting from patients problem list. Study phone number: [phone]. Diagnosis changed due to Research Module. Go to Snapshot for study details. Altered bowel habits 02/27/2018 019 Adverse food reaction 07/05/20162018 Overview: significant vomiting/diarrhea with clams. [place] very weak after eating conch fritter without [...] as of this encounter (statuses as of 08/11/2023) Immunizations Name Administration Dates Next Due COVID-19 mRNA, LNP-s, No Pre serve, 2-Dose Series (enercast) 12/01/2021,09/07/2020,08/17/2020 COVID-19, MRNA-LNP, 23-24, P F, 30 MCG/0.3 mL, 12 YRS AND ABOVE, IM (P[employer]ZER-Comirnaty) 04/21/2023 COVID-19, mRNA, LNP-s, PF, B ooster, [...] Telephone Encounter - Ginna Corral MD - 08/11/2023 2:49 PM ESTSigned Prescriptions: Disp Refills Rosuvastatin Calcium 40 MG Oral Tablet (Cr*90 Tab*3 Sig: TAKE 1 TABLET IN THE MORNING Authorizing Provider: GINNA CORRAL * Telephone Encounter - Michelle Hardy COT - 08/11/2023 2:05 PM ESTPending Prescriptions: Disp Refills Rosuvastatin Calcium 40 MG Oral Tablet (Cr*90 Tab*3 Sig: TAKE 1 TABLET IN THE MORNING * Telephone Encounter - Michelle Hardy COT - 08/11/2023 2:05 PM EST Did you pend patient's preferred pharmacy and medication before forwarding?yes Pharmacy: [facility]-[address]- [place] Pending Prescriptions: Disp Refills Rosuvastatin Calcium 40 MG Oral Tablet (C*90 Tab*3 Sig: TAKE 1 TABLET IN THE MORNING Last Visit: 06/18/2023 (in office), Visit date not found (telemedicine) Next Visit: Visit date not found If no future appointments scheduled, and last appointment is greater than a year ago, please schedule patient for a follow-up appointment Last date the medication was ordered: 07-15-2022 Is this request for a controlled substance?No Urine Drug Screen:No results found for this or any previous visit. 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
--- OUTSIDE RECORDS SUMMARY | 2023-12-09 19:18 | External Medical Summary | Summary of Care ---
Author Name Unknown Organization [facility] Address [address] [place] [address] Phone [phone] Care Team Providers Care Food Beverage Server Name Role Phone Ed Chu MD Primary Care Provider + Reason for Visit * Reason Onset Date Comments Advice 05/08/2023 Encounter Details Date Type Department Care Team (Late st Contact Info) Description 05/08/2023 Telephone Family Practice [facility] [address] [facility] [place] [id number] Renate Castanon CR[facility] [address] [facility] [id number] Advice Allergies Active Allergy Reactions Criticality Noted Date Comments Gab Inhibitors Cough 06/14/2010 Amoxicillin 10/05/2009 Hives Cephalosporins 10/05/2009 Does not remember Gabapentin Rash 07/21/2020 Sulfa Antibiotics 06/19/2000 [place] like a dish rag documented as of this encounter (statuses as of 08/07/2023) Medications Medication Sig Dispensed Refills Start Date End Date Status LUTEIN 6 MG PO CAPS Take 1 Capsule by mouth in the morning. + Zeaxanthin. 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 May repeat 3 times. If chest pain continues, call 911 25 Tab 5 06/04/2012 Active CO-ENZYME Q-10 100 MG PO CAPS one capsule in the evening 0 04/09/2013 Active [place] 3 1000 MG CAPS Take by mouth [...] Calcium Gummies 250-100-500 MG-UNIT Oral Tablet Chewable (Bppbgha-Qpgyxmmbgw-K itamin D) Take 2 Each by mouth in the morning. 0 Active Rosuvastatin Calcium 40 MG Oral Tablet (Crestor) Take 1 Tablet by mouth in the morning. 90 Tablet 3 07/15/2022 Active Losartan Potassium 50 MG Oral Tablet (Cozaar)Indications:A therosclerosis of [place] coronary artery of [place] heart without angina pectoris,S/P angioplasty with stent,HTN, goal below 130/80 Take 1 Tablet by mouth in the morning. 90 Tablet 3 10/15/2022 Active Hydrocortisone (Perianal) 2.5 % External Cream ADMINISTER INTO RECTUM TWICE A DAY 30 g 23 11/05/2022 Active Potassium Chloride ER 10 MEQ Oral Capsule Extended ReleaseIndications:At herosclerosis of [place] coronary artery of [place] heart without angina pectoris,S/P angioplasty with stent,Coronary atherosclerosis of [place] coronary artery TAKE 1 CAPSULE DAILY. ( REPLACED TABLETS ) 90 Capsule 3 12/16/2022 Active Budesonide 0.5 MG/2ML Inhalation Suspension (Pulmicort) Inhale 0.5 mg via nebulizer in the morning and 0.5 mg before bedtime. As directed. 120 mL 12 01/31/2023 Active hydroCHLOROthiazide 25 MG Oral Tablet (Hydrodiuril)Indicati ons:Atherosclerosis of [place] coronary artery of [place] heart without angina pectoris,S/P angioplasty with stent,Coronary atherosclerosis of [place] coronary artery TAKE 1 TABLET FOUR TIMES PER WEEK (DOSE CHANGE) 50 Tablet 3 02/03/2023 Active amLODIPine Besylate 5 MG Oral Tablet (Norvasc)Indications: S/P angioplasty with stent TAKE 1 TABLET AT BEDTIME (DOSE CHANGE) 90 Tablet 3 02/27/2023 Active documented as of this encounter (statuses as of 08/07/2023) Active Problems Problem Noted Date Diagnosed Date [...] Overview: RASH Goiter 08/05/2011 Coronary atherosclerosis of [place] coronary yecenia ry 09/27/2010 Chronic gastric ulcer 09/27/2010 S/P angioplasty with stent 09/27/2010 Spinal stenosis of lumbar re gion without neurogenic claudication 09/27/2010 Hypertrophy of nasal turbinates 10/05/2009 Deviated nasal septum 07/31/2009 Esophageal reflux 07/31/2009 PURE HYPERCHOLESTEROLEM 07/12/2003 Irritable bowel syndrome with mixed bowel habits 05/30/2000 documented as of this encounter (statuses as of 08/07/2023) Resolved Problems Problem Noted Date Diagnosed Date Resolved Date Age-related osteoporosis wit hout current pathological fracture 01/11/2019 04/21/2019 Encounter for examination fo r normal comparison and control in clinical research program 11/02/2018 02/07/2020 Overview: DO NOT DELETE [facility] DETECT Study: Project # [id number], Marketing Senior Recruiter: Rafiq Anguiano, PhD. SUMMARY: Goal: Establish test [...] contact study staff at ; after hours Marketing Senior Recruiter via the [facility] cloth shrinking machine operator . Please contact study team before resolving/deleting from patients problem list. Study phone number: [phone]. Diagnosis changed due to Research Module. Go to Snapshot for study details. Encounter for examination fo r normal comparison and control in clinical research program 11/02/2018 03/07/2022 Overview: DO NOT DELETE - [facility] Study: Project # [id number], Marketing Senior Recruiter: Murray Manuel, MS, MPH. SUMMARY: Goal: Establish [...] contact study staff at ; after hours Marketing Senior Recruiter via the [facility] cloth shrinking machine operator . - Please contact study team before resolving/deleting from patients problem list. Study phone number: [phone]. Diagnosis changed due to Research Module. Go to Snapshot for study details. Altered bowel habits 02/27/2018 019 Adverse food reaction 07/05/20162018 Overview: significant vomiting/diarrhea with clams. [place] very weak after eating conch fritter without [...] as of this encounter (statuses as of 08/07/2023) Immunizations Name Administration Dates Next Due COVID-19 mRNA, LNP-s, No Pre serve, 2-Dose Series ([employer]) 12/01/2021,09/07/2020,08/17/2020 COVID-19, MRNA-LNP, 23-24, P F, 30 MCG/0.3 mL, 12 YRS AND ABOVE, IM (Denty's-Comirnaty) 04/21/2023 COVID-19, mRNA, LNP-s, PF, B ooster, [...] encounter Miscellaneous Notes * Telephone Encounter - Ed Chu MD - 05/08/2023 10:30 PM EDT Noted--WILLIAM Dewitt--pt is seeing you this month for f/u of my last visit. 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 Has hx MDD, I can give you more info--pt is seeing you do to the PHQ9/ DWIGHT 7 / MMSE to try to get a better sense of her symptoms. Unclear to me yet if they are due to MDD, dementia, other. Likely will benefit from neuropsych testing & neurology--memory clinic referral. * Telephone Encounter - Nini Hughes LPN - 05/08/2023 1:04 PM EDT [place], daughter is calling. Her mother has an upcoming appointment. Said she has moved out. Mother has completely stopped being her caregiver. She has been her caregiver for 25 years. So, this is a big change. Has been out of the house 3 weeks. Has not seen any change in her mother's behavior. No de-escalation at all. Her mother is socially isolated. Not eating much. She is very reactive, angry. Hostile to her daughter the whole time she is home. Daughter is 48. She is chronically ill. Feels that she was forced to leave because of the environment. Feels like she has had no choice, but to leave. She has been coming home on the weekends. Her boyfriend has children. They come home on the weekends. She leaves because she doesn't want to overwhelm them. Her mother has an Inability to make small talk, like over the table during a dinner conversation. Not being able to stay on topic, interrupting conversations. Giving her opinion. This is not her normal and notices the roll changer the last couple of years. Has gotten increasingly worse. Most shocking thing is that she would literally stop giving any care to her daughter. She completely doesn't offer any help. She has been staying away, when she knows she needs help. She is calling because she is really concerned and didn't know how to intervene. * Telephone Encounter - Licha Stone OSA - 05/08/2023 12:59 PM EDT Reason for patient's call: speak with a nurse about the pt. She wants to inform them of some issues/concerns prior to her upcoming appt on Friday. Pts daughter states that these are things that the pt most likely won't bring up herself during the appt. Caller was transferred to Nini at the nurse line. documented in this encounter Plan of Treatment Upcoming Encounters Date Type Department Care Team (Late st Contact Info) Description 04/14/2024 11:40 AM EDT Office Visit Family [facility] [address] [facility] [place] [address] Ed Chu MD [address] [place] [address] Health Maintenance Due Date Last Done Comments [...] Not on filedocumented as of this encounter Advance Directives Documents on File Type Date Recorded Patient Direct Support Professional Expl anation Advance Directives and Livin g Will 10/15/2016 LIVING WILL Power of Network Support Technician 10/15/2016 POWER OF A TTORNEY Care Teams Food Beverage Server Relationship Specialty Start Date End Date Ed Chu MD [address] [place] [phone] PCP - General Family Medicine 08/13/19 documented as of this encounter
--- OUTSIDE RECORDS SUMMARY | 2023-12-09 19:18 | External Medical Summary | Summary of Care ---
Author Name Unknown Organization [facility] Address [address] [place] [address] Phone [phone] Care Team Providers Care Cryptographer Name Role Phone Ed Pina MD Primary Care Provider + Reason for Visit * Reason Comments eRx-Medication Refill Encounter Details Date Type Department Care Team (Late st Contact Info) Description 07/25/2023 Refill Family Practice [facility] [address] [facility] [address] Ed Pina MD [address] [address] Allergies Active Allergy Reactions Criticality Noted Date Comments Gab Inhibitors Cough 06/14/2010 Amoxicillin 10/05/2009 Hives Cephalosporins 10/05/2009 Does not remember Gabapentin Rash 07/21/2020 Sulfa Antibiotics 06/19/2000 [place] like a dish rag documented as of this encounter (statuses as of 07/26/2023) Medications Medication Sig Dispensed Refills Start Date [...] 0.4 MG SL SUBLIndications:[place] n[place] atherosclerosis of [place] coronary artery One tablet under tongue if needed for chest pain. May repeat 3 times. If chest pain continues, call 911 25 Tab 5 2 Active CO-ENZYME Q-10 100 MG PO CAPS one capsule in the evening 0 3 Active [place] 3 1000 MG CAPS Take by mouth [...] the morning. 90 Tablet 3 3 Active Losartan Potassium 50 MG Oral Tablet (Cozaar)Indications: Atherosclerosis of [place] coronary artery of [place] heart without angina pectoris,S/P angioplasty with stent,HTN, goal below 130/80 Take 1 Tablet by mouth in the morning. 90 Tablet 3 3 Active Hydrocortisone (Perianal) 2.5 % External Cream ADMINISTER INTO RECTUM TWICE A DAY 30 g 23 3 Active Potassium Chloride ER 10 MEQ Oral Capsule Extended ReleaseIndications:A therosclerosis of [place] coronary artery of [place] heart without angina pectoris,S/P angioplasty with stent,Coronary atherosclerosis of [place] coronary artery TAKE 1 CAPSULE DAILY. ( REPLACED TABLETS ) 90 Capsule 3 3 Active Budesonide 0.5 MG/2ML Inhalation Suspension (Pulmicort) Inhale 0.5 mg via nebulizer in the morning and 0.5 mg before bedtime. As directed. 120 mL 12 3 Active hydroCHLOROthiazide 25 MG Oral Tablet (Hydrodiuril)Indicat ions:Atherosclerosis of [place] coronary artery of [place] heart without angina pectoris,S/P angioplasty with stent,Coronary atherosclerosis of [place] coronary artery TAKE 1 TABLET FOUR TIMES [...] by mouth daily. 0 Active Saline Nasal [place] 0.65 % Nasal Solution (Kirk) Administer into nostril 2 times a day. 0 Active Cromolyn Sodium 5.2 MG/ACT Nasal Aerosol Solution (NasalCrom) Administer into each nostril as needed. 0 Active Escitalopram Oxalate 20 MG Oral Tablet (Lexapro) TAKE 1 TABLET DAILY 90 Tablet 2 4 Active Escitalopram Oxalate 20 MG Oral Tablet (Lexapro) TAKE 1 TABLET DAILY 90 Tablet 1 3 07/26/19 24 Discontinued documented as of this encounter (statuses as of 07/26/2023) Active Problems Problem Noted Date Diagnosed Date S/P cervical spinal fusion 03/14/2020 Neuralgia and neuritis 03/14/2020 Well adult exam 03/14/2020 Overview: Prefer "Aisha" 03/28 colon WNL 05/23 colon [facility] tubular adenoma danny 5y Current moderate episode of major depressive disorder without prior episode 07/14/2019 Osteopenia of both hips 04/21/2019 Urinary incontinence in female 07/13/2018 Non-allergic rhinitis 05/21/2016 Thyroid nodule 03/26/2012 ACEI/ARB contraindicated 12/03/2011 Overview: RASH Goiter 08/05/[address] [place] coronary yecenia ry 09/27/2010 Chronic gastric ulcer 09/27/2010 S/P angioplasty with stent 09/27/2010 Spinal stenosis of lumbar re gion without neurogenic claudication 09/27/2010 Hypertrophy of nasal turbinates 10/05/2009 Deviated nasal septum 07/31/2009 Esophageal reflux 07/31/2009 PURE HYPERCHOLESTEROLEM 07/12/2003 Irritable bowel syndrome with mixed bowel habits 05/30/2000 documented as of this encounter (statuses as of 07/26/2023) Resolved Problems Problem Noted Date Diagnosed Date Resolved Date Age-related osteoporosis wit hout current pathological fracture 01/11/2019 04/21/2019 Encounter for examination fo r normal comparison and control in clinical research program 11/02/2018 02/07/2020 Overview: DO NOT DELETE [facility] DETECT Study: Project # [id number], Orthopedics Pediatric Physician: Rafiq Anguiano, PhD. SUMMARY: Goal: Establish test [...] contact study staff at ; after hours Orthopedics Pediatric Physician via the [facility] non acoustic operator . Please contact study team before resolving/deleting from patients problem list. Study phone number: [phone]. Diagnosis changed due to Research Module. Go to Snapshot for study details. Encounter for examination fo r normal comparison and control in clinical research program 11/02/2018 03/07/2022 Overview: DO NOT DELETE - [facility] DETECT Study: Project # [id number], Orthopedics Pediatric Physician: Murray Manuel, MS, MPH. SUMMARY: Goal: Establish [...] contact study staff at ; after hours Orthopedics Pediatric Physician via the [facility] non acoustic operator . - Please contact study team before resolving/deleting from patients problem list. Study phone number: [phone]. Diagnosis changed due to Research Module. Go to Snapshot for study details. Altered bowel habits 02/27/2018 019 Adverse food reaction 07/05/20162018 Overview: significant vomiting/diarrhea with clams. [place] very weak after eating conch fritter without [...] as of this encounter (statuses as of 07/26/2023) Immunizations Name Administration Dates Next Due COVID-19 mRNA, LNP-s, No Pre serve, 2-Dose Series ([employer]) 12/01/2021,09/07/2020,08/17/2020 COVID-19, MRNA-LNP, 23-24, P F, 30 [...] encounter Miscellaneous Notes * Telephone Encounter - Jorje Guaman, [facility] - 07/26/2023 7:29 AM EST Signed Prescriptions: Disp Refills Escitalopram Oxalate 20 MG Oral Tablet (Le*90 Tab*2 Sig: TAKE 1 TABLET DAILYAuthorizing Provider: ED PINA User: JORJE GUAMAN------- documented in this encounter Plan of Treatment Upcoming Encounters Date Type Department Care Team (Late st Contact Info) Description 04/14/2024 11:40 AM EDT Office Visit Family [facility] [address] [place] [address] Ed Pina MD [address] [place] [phone] Health Maintenance Due Date Last Done Comments [...] Documents on File Type Date Recorded Patient Drier Transfer Car Operator Expl anation Advance Directives and Livin g Will 10/15/2016 LIVING WILL Power of Mate First 10/15/2016 POWER OF A TTORNEY Care Teams Cryptographer Relationship Specialty Start Date End Date Ed Pina MD [address] [place] [phone] PCP - General Family Medicine 08/13/19 documented as of this encounter
--- OUTSIDE RECORDS SUMMARY | 2023-12-09 19:18 | External Medical Summary | Summary of Care ---
Author Name Unknown Organization [facility] Address [address] [place] [address] Phone [phone] Care Team Providers Care Commercial Insulator Name Role Phone Ed Pina MD Primary Care Provider + Reason for Visit * Reason Comments Follow Up Encounter Details Date Type Department Care Team (Late st Contact Info) Description 06/18/2023 3:30 PM EST Office Visit Cardiology, [facility] [address] [facility] [place] [address] Ranjith Corral MD [address] [facility] [address] Coronary artery disease involving cachil dehe coronary artery of cachil dehe heart without angina pectoris*; Hyperlipemia, mixed; HTN, goal below 140/90 Allergies Active Allergy Reactions Criticality Noted Date Comments Gab Inhibitors Cough 06/14/2010 Amoxicillin 10/05/2009 Hives Cephalosporins 10/05/2009 Does not remember Gabapentin Rash 07/21/2020 Sulfa Antibiotics 06/19/2000 [place] like a dish rag documented as of this encounter (statuses as of 06/18/2023) Medications Medication Sig Dispensed Refills Start Date [...] 11 06/14/2010 Active NITROSTAT 0.4 MG SL SUBLIndications:Bel nary atherosclerosis of cachil dehe coronary artery One tablet under tongue if needed for chest pain. May repeat 3 times. If chest pain continues, call [phone] Tab 5 06/04/2012 Active CO-ENZYME Q-10 100 MG PO CAPS one capsule in the evening 0 04/09/2013 Active [place] 3 1000 MG CAPS Take by mouth [...] 50 MG Oral Tablet (Cozaar)Indications: Atherosclerosis of cachil dehe coronary artery of cachil dehe heart without angina pectoris,S/P angioplasty with stent,HTN, goal below 130/80 Take 1 Tablet by mouth in the morning. 90 Tablet 3 10/15/2022 Active Hydrocortisone (Perianal) 2.5 % External Cream ADMINISTER INTO RECTUM TWICE A DAY 30 g 23 11/05/2022 Active Potassium Chloride ER 10 MEQ Oral Capsule Extended ReleaseIndications:A therosclerosis of cachil dehe coronary artery of cachil dehe heart without angina pectoris,S/P angioplasty with stent,Coronary atherosclerosis of cachil dehe coronary artery TAKE 1 CAPSULE DAILY. ( REPLACED TABLETS ) 90 Capsule 3 12/16/2022 Active Escitalopram Oxalate 20 MG Oral Tablet (Lexapro) TAKE 1 TABLET DAILY 90 Tablet 1 01/28/2023 Active Budesonide 0.5 MG/2ML Inhalation Suspension (Pulmicort) Inhale 0.5 mg via nebulizer in the morning and 0.5 mg before bedtime. As directed. 120 mL 12 01/31/2023 Active hydroCHLOROthiazide 25 MG Oral Tablet (Hydrodiuril)Indicat ions:Atherosclerosis of cachil dehe coronary artery of cachil dehe heart without angina pectoris,S/P angioplasty with stent,Coronary atherosclerosis of cachil dehe coronary artery TAKE 1 TABLET FOUR TIMES PER WEEK (DOSE CHANGE) 50 Tablet 3 02/03/2023 Active amLODIPine Besylate 5 MG Oral Tablet (Norvasc)Indications :S/P angioplasty with stent TAKE 1 TABLET AT BEDTIME (DOSE CHANGE) 90 Tablet 3 02/27/2023 Active Vitamin C 500 MG Oral Tablet Chewable Take 1 Tablet by mouth in the morning. 0 Active Quercetin Complex Immune Oral Capsule Take 400 mg by mouth in the morning and 400 mg before bedtime. 0 Active Alicja Powder 2 tsp in the morning 0 Active L-Glutamine 500 MG Oral Capsule Take by mouth daily. 0 Active Saline Nasal Rector 0.65 % Nasal Solution ([place]) Administer into nostril 2 times a day. 0 Active Cromolyn Sodium 5.2 MG/ACT Nasal Aerosol Solution (NasalCrom) Administer into each nostril as needed. 0 Active Fluocinolone Acetonide Body 0.01 % External Oil ([place]-Smoothe/FS Body) Apply 4 drops to the ears up to three times a week 118.28 mL 12 01/11/2022 06/18/20 Discontinu ed(Patient preference /discontin uation) NasoGel Nasal Gel Administer into nostril as needed . 0 06/18/20 Discontinu ed(Medicat ion List Clean Up) Dicyclomine HCl 10 MG Oral Capsule (Bentyl) TAKE 1 CAPSULE TWICE A DAY NEEDED FOR ABDOMINAL CRAMPING 180 Capsule 1 10/28/2022 06/18/20 23 Discontinu ed(Patient preference /discontin uation) Quercetin 500 MG Oral Capsule Take by mouth 2 times a day. 0 06/18/20 Discontinu ed(Medicat ion List Clean Up) documented as of this encounter (statuses as of 06/18/2023) Active Problems Problem Noted Date Diagnosed Date S/P cervical spinal fusion 03/14/2020 Neuralgia and neuritis 03/14/2020 Well adult exam 03/14/2020 Overview: Prefer "Aisha" 03/28 colon WNL 05/23 colon [facility] tubular adenoma danny 5y Current moderate episode of major depressive disorder without prior episode 07/14/2019 Osteopenia of both hips 04/21/2019 Urinary incontinence in female 07/13/2018 Non-allergic rhinitis 05/21/2016 Thyroid nodule 03/26/2012 ACEI/ARB contraindicated 12/03/2011 Overview: RASH Goiter 08/05/2011 Coronary atherosclerosis of cachil dehe coronary yecenia ry 09/27/2010 Chronic gastric ulcer 09/27/2010 S/P angioplasty with stent 09/27/2010 Spinal stenosis of lumbar re gion without neurogenic claudication 09/27/2010 Hypertrophy of nasal turbinates 10/05/2009 Deviated nasal septum 07/31/2009 Esophageal reflux 07/31/2009 PURE HYPERCHOLESTEROLEM 07/12/2003 Irritable bowel syndrome with mixed bowel habits 05/30/2000 documented as of this encounter (statuses as of 06/18/2023) Resolved Problems Problem Noted Date Diagnosed Date Resolved Date Age-related osteoporosis wit hout current pathological fracture 01/11/2019 04/21/2019 Encounter for examination fo r normal comparison and control in clinical research program 11/02/2018 02/07/2020 Overview: DO NOT DELETE Brom[facility] DETECT Study: Project # [id number], Electrical Lineman: Rafiq Anguiano, PhD. SUMMARY: Goal: Establish test [...] contact study staff at ; after hours Electrical Lineman via the [facility] [place] tar heater operator . Please contact study team before resolving/deleting from patients problem list. Study phone number: [phone]. Diagnosis changed due to Research Module. Go to Snapshot for study details. Encounter for examination fo r normal comparison and control in clinical research program 11/02/2018 03/07/2022 Overview: DO NOT DELETE - [facility] DETECT Study: Project # [id number], Electrical Lineman: Murray Manuel, MS, MPH. SUMMARY: Goal: Establish [...] contact study staff at ; after hours Electrical Lineman via the [facility] [place] tar heater operator . - Please contact study team before resolving/deleting from patients problem list. Study phone number: [phone]. Diagnosis changed due to Research Module. Go to Snapshot for study details. Altered bowel habits 02/27/2018 019 Adverse food reaction 07/05/20162018 Overview: significant vomiting/diarrhea with clams. [place] very weak after eating conch fritter without [...] as of this encounter (statuses as of 06/18/2023) Immunizations Name Administration Dates Next Due COVID-19 mRNA, LNP-s, No Pre serve, 2-Dose Series ([employer]) 12/01/2021,09/07/2020,08/17/2020 COVID-19, MRNA-LNP, 23-24, P F, 30 [...] Date Smoking Tobacco: Never Smokeless Tobacco: Never Tobacco Cessation:Counseling Given: Not Answered Comments:no passive smoke Alcohol Use Standard Drinks/Week [...] on file documented as of this encounter Last Filed Vital Signs Vital Sign Reading Time Taken Comments Blood Pressure 136/74 06/18/2023 3:37 PM EST Pulse 64 06/18/2023 3:37 PM EST Temperature - - Respiratory Rate 64 06/18/2023 3:37 PM EST Oxygen Saturation - - Inhaled Oxygen Concentration - - Weight 67.8 kg (149 lb 6.4 oz) 06/18/2023 3:37 P M EST Height - - Body Mass Index 27.77 04/11/2023 11:46 AM EDT documented in this encounter Progress Notes * Ranjith Corral MD - 06/18/2023 3:30 PM EST June 18, 2023 Cardiology Follow Up Referring Provider: PCP: ED PINA [address] [place] [address] [place] [address] Chief Complaint: Follow-up chronic ischemic heart disease SUBJECTIVE: Aisha Pearce is a 77 year old year old female with ongoing cardiac issues 1. Atherosclerotic coronary disease status post coronary intervention with bare metal stent to the left circumflex obtuse marginal May 2010 for single- vessel coronary disease, with stable class 1 functional capacity 2. Hypertension. 3. Hyperlipidemia. Patient presents today in routine follow-up. Overall doing well. Gets tired and more fatigued than in past but overall still very active works in [employer] and about home. Exercises at least 2 days per weekwith good tolerance. No chest pains, tachy palpitations, syncope or near syncope. Syncope or near syncope. No bleeding difficulties. Appetite and A Complete Review of Systems is as stated above or negative. Patient Active Problem List Diagnosis Code Irritable bowel syndrome with mixed bowel habits K58.2 PURE HYPERCHOLESTEROLEM E78.5 Deviated nasal septum J34.2 Esophageal reflux K21.9 Hypertrophy of nasal turbinates J34.3 Coronary atherosclerosis of cachil dehe coronary artery I25.10 Chronic gastric ulcer K25.7 S/P angioplasty with stent Z95.820 Spinal stenosis of lumbar region without neurogenic claudication M48.061 Goiter E04.9 ACEI/ARB contraindicated Z53.09 Thyroid nodule E04.1 Non-allergic rhinitis J31.0 Urinary incontinence in female R32 Osteopenia of both hips M85.851, M85.852 Current moderate episode of major depressive disorder without prior episode (HCC) F32.1 S/P cervical spinal fusion Z98.1 Neuralgia and neuritis M79.2 Well adult exam Z00.00 Review of patient's allergies indicates: Allergen Reactions Gab Inhibitors Cough Amoxicillin Hives Cephalosporins Does not remember Gabapentin Rash Sulfa Antibiotics [place] like a dish rag Current Outpatient Medications Medication Sig Dispense Refill LUTEIN 6 MG PO CAPS Take 1 Capsule by mouth in the morning. + Zeaxanthin. ONE-A-DAY WOMENS 50 PLUS PO TABS 1 tab daily ASPIRIN EC 81 MG PO TBEC 1 TABLET DAILY 34 Tab 11 NITROSTAT 0.4 MG SL SUBL One tablet under tongue if needed for chest pain. May repeat 3 times. If chest pain continues, call 911 25 Tab 5 CO-ENZYME Q-10 100 MG PO CAPS one capsule in the evening [place] 3 1000 MG CAPS Take by mouth at bedtime. Polyethylene Glycol 3350 17 GM Oral Packet Take 1 Packet by mouth in the morning. Docusate Sodium 100 MG Oral Capsule Take 2 Capsules by mouth at bedtime. famotidine 20 MG OR 2 times a day. Acetaminophen 325 MG Oral Tablet Take 2 Tablets by mouth in the morning and 2 Tablets before bedtime. Calcium Gummies 250-100-500 MG-UNIT Oral Tablet Chewable (Kvfvhsl-Jwipltqtrf-Bvbosfh D) Take 2 Eachby mouth in the morning. Rosuvastatin Calcium 40 MG Oral Tablet (Crestor) Take 1 Tablet by mouth in the morning. 90 Tablet 3 Losartan Potassium 50 MG Oral Tablet (Cozaar) Take 1 Tablet by mouth in the morning. 90 Tablet 3 Hydrocortisone (Perianal) 2.5 % External Cream ADMINISTER INTO RECTUM TWICE A DAY 30 g 23 Potassium Chloride ER 10 MEQ Oral Capsule Extended Release TAKE 1 CAPSULE DAILY. ( REPLACED TABLETS) 90 Capsule 3 Escitalopram Oxalate 20 MG Oral Tablet (Lexapro) TAKE 1 TABLET DAILY 90 Tablet 1 Budesonide 0.5 MG/2ML Inhalation Suspension (Pulmicort) Inhale 0.5 mg via nebulizer in the morning and 0.5 mg before bedtime. As directed. 120 mL 12 hydroCHLOROthiazide 25 MG Oral Tablet (Hydrodiuril) TAKE 1 TABLET FOUR TIMES PER WEEK (DOSE CHANGE)50 Tablet 3 amLODIPine Besylate 5 MG Oral Tablet (Norvasc) TAKE 1 TABLET AT BEDTIME (DOSE CHANGE) 90 Tablet 3 Vitamin C 500 MG Oral Tablet Chewable Take 1 Tablet by mouth in the morning. Quercetin Complex Immune Oral Capsule Take 400 mg by mouth in the morning and 400 mg before bedtime. Alicja Powder 2 tsp in the morning L-Glutamine 500 MG Oral Capsule Take by mouth daily. Saline Nasal Rector 0.65 % Nasal Solution ([place]) Administer into nostril 2 times a day. Cromolyn Sodium 5.2 MG/ACT Nasal Aerosol Solution (NasalCrom) Administer into each nostril as needed. No current facility-administered medications for this visit. OBJECTIVE/PHYSICAL EXAMINATION: BP 136/74 (BP Site: Left Arm, BP Position: Sitting, BP Cuff Size: Large) | Pulse 64 | Resp 64 | Wt 67.8 kg (149 lb 6.4 oz) | BMI 27.77 kg/m | BSA 1.72 m General: no acute distress and stated age Head: normocephalic, no masses, lesions, tenderness or abnormalities Eyes: conjunctiva are pink and non-injected, sclera clear Throat: clear Nares: without discharge Neck: supple, no adenopathy, no bruits, normal jugular venous pulse, no hepatojugular reflux, no carotid bruits Chest: normal shape and normal respiratory effort Lungs: clear to auscultation and percussion Cardiac Exam: - regular rate & rhythm, no murmur, gallop or rub - normal S-1, normal S-2 Abdomen: abdomen soft, non-tender, no abnormal masses, no hepatosplenomegaly, no abdominal bruit, no femoral bruit Musculoskeletal: no gait disturbance, no joint inflammation, no deforming arthritis Extremities: no edema, no cyanosis, pulses intact 2+/4 Neuro: grossly normal exam Data: EKG performed, April 10, 2022 , and reviewed personally : Normal sinus rhythm/sinus bradycardia with normal tracing Rate 55 beats per minute Lipid Panel Results: Results for orders placed or performed in visit on 05/20/18 LIPID PANEL Result Value Ref Range HOURS FASTING TRIGLYCERIDES-OUTSIDE LAB 141 0 - 150 MG/DL CHOLESTEROL-OUTSIDE LAB 176 0 - 200 MG/DL HDL-OUTSIDE LAB 73 >40 MG/DL CHOL/HDL RATIO-OUTSIDE LAB 2 LDL (CALCULATED)-OUTSIDE LAB 75 Results for orders placed or performed in visit on 03/14/20 LIPID PANEL WITH DIRECT LDL IF TRIGLYCERIDE IS ELEVATED Result Value Ref Range TRIGLYCERIDES-OUTSIDE LAB 131 0 - 150 MG/DL CHOLESTEROL-OUTSIDE LAB 179 0 - 200 MG/DL HDL-OUTSIDE LAB 85 (A) 40 - 60 MG/DL CHOL/HDL RATIO-OUTSIDE LAB 2 CALC LDL (CALCULATED)-OUTSIDE LAB 68 MG/DL ASSESSMENT: 77 year old year old female With 1.Chronic stable ischemic heart disease with class 1 functional capacity and no angina pectoris. 2. Hypertension: Blood pressures now controlled on current medical regimen 3. Resting bradycardia but with appropriate heart rate response to activity PLAN: Overall stable from cardiac standpoint would consider sleep testing in the future Cardiac event monitor with next visit assess for symptomatic bradycardia Patient report any clinical symptoms or complaints DISPOSITION: Return 6 -12 months Ranjith Corral MD Cardiology, [address] [address] documented in this encounter Nursing Notes * Palma Armstrong CMA - 06/18/2023 3:30 PM EST Examination Room: 12 Name: Aisha Pearce Date of : (1945). Reason for Visit: 6M f/u Interim Hospitalization(s): none Problems/Concerns: denies Chest Pain/SOB: denies [facility] Discussed: Not applicable [facility] is a way you can talk to your provider online through e-mail. Would you like to sign up? I can activate it for you? ALREADY ACTIVE Patient was instructed to not get up on the exam table until directed and assisted by their provider; patient is to remain seated in the chair/ wheelchair/ exam table for fall prevention and safety reasons. Patient is aware to have assistance to step down off exam table with personnel. Patient voiced full comprehension of instructions. documented in this encounter Plan of Treatment Upcoming Encounters Date Type Department Care Team (Late st Contact Info) Description 04/14/2024 11:40 AM EDT Office Visit [facility] [address] [place] [address] Ed Pina MD [address] [place] [address] Health Maintenance Due Date Last Done Comments [...] as of this encounter Visit Diagnoses Diagnosis Coronary artery disease involving cachil dehe coronary artery of cachil dehe heart without angina pectoris- Primary Hyperlipemia, mixed Mixed hyperlipidemia HTN, goal below 140/90 Unspecified essential hypertension documented in this encounter Advance Directives Documents on File Type Date Recorded Patient Project Buyer Expl anation Advance Directives and Livin g Will 10/15/2016 LIVING WILL Power of Clerk General 10/15/2016 POWER OF A TTORNEY Care Teams Commercial Insulator Relationship Specialty Start Date End Date Ed Pina MD [address] [place] [address] PCP - General Family Medicine 08/13/19 documented as of this encounter
--- OUTSIDE RECORDS SUMMARY | 2023-12-09 19:18 | External Medical Summary | Summary of Care ---
Author Name Unknown Organization [facility] Address [address] [place] [address] Phone [phone] Care Team Providers Care Mobile Lounge Driver Or Operator Name Role Phone Ed Chu MD Primary Care Provider + Encounter Details Date Type Department Care Team (Late st Contact Info) Description 04/12/[address] [facility] [address] [place] [address] Ed Chu MD [address] [place] [address] Allergies Active Allergy Reactions Criticality Noted Date Comments Gab Inhibitors Cough 06/14/2010 Amoxicillin 10/05/2009 Hives Cephalosporins 10/05/2009 Does not remember Gabapentin Rash 07/21/2020 Sulfa Antibiotics 06/19/2000 [place] like a dish rag documented as of this encounter (statuses as of 07/12/2023) Medications Medication Sig Dispensed Refills Start Date [...] 0.4 MG SL SUBLIndications:Bel nary atherosclerosis of [place] coronary artery One tablet under tongue if needed for chest pain. May repeat 3 times. If chest pain continues, call 911 25 Tab 5 06/04/2012 Active CO-ENZYME Q-10 100 MG PO CAPS one capsule in the evening 0 04/09/2013 Active [place] 3 1000 MG CAPS Take by mouth [...] 50 MG Oral Tablet (Cozaar)Indications: Atherosclerosis of [place] coronary artery of [place] heart without angina pectoris,S/P angioplasty with stent,HTN, goal below 130/80 Take 1 Tablet by mouth in the morning. 90 Tablet 3 10/15/2022 Active Hydrocortisone (Perianal) 2.5 % External Cream ADMINISTER INTO RECTUM TWICE A DAY 30 g 23 11/05/2022 Active Potassium Chloride ER 10 MEQ Oral Capsule Extended ReleaseIndications:A therosclerosis of [place] coronary artery of [place] heart without angina pectoris,S/P angioplasty with stent,Coronary atherosclerosis of [place] coronary artery TAKE 1 CAPSULE DAILY. ( [...] 25 MG Oral Tablet (Hydrodiuril)Indicat ions:Atherosclerosis of [place] coronary artery of [place] heart without angina pectoris,S/P angioplasty with stent,Coronary atherosclerosis of [place] coronary artery TAKE 1 TABLET FOUR TIMES PER WEEK (DOSE CHANGE) 50 Tablet 3 02/03/2023 Active amLODIPine Besylate 5 MG Oral Tablet (Norvasc)Indications :S/P angioplasty with stent TAKE 1 TABLET AT BEDTIME (DOSE CHANGE) 90 Tablet 3 02/27/2023 Active Fluocinolone Acetonide Body 0.01 % External Oil ([place]-Smoothe/FS Body) Apply 4 drops to the ears up to three times a week 118.28 mL 12 01/11/2022 06/18/20 Discontinu ed(Patient preference /discontin uation) NasoGel Nasal Gel Administer into nostril as needed . 0 06/18/20 Discontinu ed(Medicat ion List Clean Up) Dicyclomine HCl 10 MG Oral Capsule (Bentyl) TAKE 1 CAPSULE TWICE A DAY NEEDED FOR ABDOMINAL CRAMPING 180 Capsule 1 10/28/2022 06/18/20 Discontinu ed(Patient preference /discontin uation) Quercetin 500 MG Oral Capsule Take by mouth 2 times a day. 0 06/18/20 Discontinu ed(Medicat ion List Clean Up) documented as of this encounter (statuses as of 07/12/2023) Active Problems Problem Noted Date Diagnosed Date S/P cervical spinal fusion 03/14/2020 Neuralgia and neuritis 03/14/2020 Well adult exam 03/14/2020 Overview: Prefer "Aisha" 03/28 colon WNL 05/23 colon [facility] tubular adenoma danny 5y Current moderate episode of major depressive disorder without prior episode 07/14/2019 Osteopenia of both hips 04/21/2019 Urinary incontinence in female 07/13/2018 Non-allergic rhinitis 05/21/2016 Thyroid nodule 03/26/2012 ACEI/ARB contraindicated 12/03/2011 Overview: RASH Goiter 08/05/2011 Coronary atherosclerosis of [place] coronary yecenia ry 09/27/2010 Chronic gastric ulcer 09/27/2010 S/P angioplasty with stent 09/27/2010 Spinal stenosis of lumbar re gion without neurogenic claudication 09/27/2010 Hypertrophy of nasal turbinates 10/05/2009 Deviated nasal septum 07/31/2009 Esophageal reflux 07/31/2009 PURE HYPERCHOLESTEROLEM 07/12/2003 Irritable bowel syndrome with mixed bowel habits 05/30/2000 documented as of this encounter (statuses as of 07/12/2023) Resolved Problems Problem Noted Date Diagnosed Date Resolved Date Age-related osteoporosis wit hout current pathological fracture 01/11/2019 04/21/2019 Encounter for examination fo r normal comparison and control in clinical research program 11/02/2018 02/07/2020 Overview: DO NOT DELETE [facility] DETECT Study: Project # [id number], Plant Cytologist: Rafiq Anguiano, PhD. SUMMARY: Goal: Establish test [...] contact study staff at ; after hours Plant Cytologist via the [facility] hospital carbon blocks press operator . Please contact study team before resolving/deleting from patients problem list. Study phone number: [phone]. Diagnosis changed due to Research Module. Go to Snapshot for study details. Encounter for examination fo r normal comparison and control in clinical research program 11/02/2018 03/07/2022 Overview: DO NOT DELETE - [facility] DETECT Study: Project # [id number], Plant Cytologist: Murray Manuel, MS, MPH. SUMMARY: Goal: Establish [...] contact study staff at ; after hours Plant Cytologist via the [facility] hospital carbon blocks press operator . - Please contact study team before resolving/deleting from patients problem list. Study phone number: [phone]. Diagnosis changed due to Research Module. Go to Snapshot for study details. Altered bowel habits 02/27/2018 019 Adverse food reaction 07/05/20162018 Overview: significant vomiting/diarrhea with clams. [place] very weak after eating conch fritter without [...] as of this encounter (statuses as of 07/12/2023) Immunizations Name Administration Dates Next Due COVID-19 mRNA, LNP-s, No Pre serve, 2-Dose Series (CallMiner) 12/01/2021,09/07/2020,08/17/2020 COVID-19, mRNA, LNP-s, PF, B ooster, 100mcg/0.5mg [...] encounter Miscellaneous Notes * Telephone Encounter - Fredis Carroll OSA - 04/14/2023 11:26 AM EDT Called pt, scheduled OV with Thiede * Telephone Encounter - Minnie Elena LPN - 04/14/2023 10:08 AM EDT Called and spoke with patient. She is agreeable to a 40 minute appointment for anxiety/depression/memory testing and med discussion. She prefers appointment be with Renate Castanon-she has seen her before and is comfortable with her. Please call and assist with scheduling. * Telephone Encounter - Ed Chu MD - 04/12/2023 12:16 PM EDT Nursing-please call pt. After our visit, I thought more about her depression medicine. Rather than waiting another year, would it be ok with her if she came in to do some testing for depression/anxiety/memory with my POTATO BUCKER, Stephan Medrano? If ok with her, please schedule 40min appt --can do PHq9/ DWIGHT 7 and Mini Mental Status Exam Additional labs added on to sample from yesterday. documented in this encounter Plan of Treatment Upcoming Encounters Date Type Department Care Team (Late st Contact Info) Description 04/14/2024 11:40 AM EDT Office Visit Family Practice [facility] [address] [facility] [place] [address] Ed Chu MD [address] [place] [phone] Scheduled Orders Name Type Priority Associated Diagnoses Orde r Schedule HIV ANTIGEN & ANTIBODY SCREEN W/ CONFIRMATION Lab Routine Screening for HIV (human immunodeficiency virus) Expected: 04/12/2023 (Approximate), Expires: 04/11/2024 Health Maintenance Due Date Last Done Comments [...] Not on filedocumented as of this encounter Results * VITAMIN B12 (04/11/2023 12:27 PM EDT) Vitamin B12 935 232 - 1,245 pg/mL 04/12/2023 8:43 PM EDT [facility] Blood Venous blood specimen / Unknown Venipuncture / Unknown 04/11/2023 12:27 PM EDT 04/11/2023 12:27 PM EDT Ed Chu MD LAB BLOOD [facility] [address] [place] [address] * TSH WITH FREE T4 IF INDICATED (04/11/2023 12:27 PM EDT) TSH 0.51 0.27 - 4.20 uIU/mL 04/12/2023 8:43 PM EDT [facility] Blood Venous blood specimen / Unknown Venipuncture / Unknown 04/11/2023 12:27 PM EDT 04/11/2023 12:27 PM EDT Ed Chu MD LAB [facility]LO[facility] [address] [facility] [place] [address] documented in this encounter Visit Diagnoses Diagnosis Screening for HIV (human immunodeficiency virus)- Primary Special screening examination for other specified viral diseases Current moderate episode of major depressive disorder without prior episode (HCC) documented in this encounter Advance Directives Documents on File Type Date Recorded Patient Rn Support Services Expl anation Advance Directives and Livin g Will 10/15/2016 LIVING WILL Power of Public Health Nurse 10/15/2016 POWER OF A TTORNEY Care Teams Mobile Lounge Driver Or Operator Relationship Specialty Start Date End Date Ed Chu MD [address] [place] [address] PCP - General Family Medicine 08/13/19 documented as of this encounter
[2023-12-09] MEDS: BUDESONIDE 0.5 MG/2 ML VIAL (PULMICORT) INH SCH (20:55)
[2023-12-09] MEDS ORDERED: NON-FORMULARY MEDICATION (Coenzyme Q10 [Coq-10] 100 mg Capsule) PO SCH (21:00)
[2023-12-09] MEDS: ROSUVASTATIN CALCIUM 20 MG TAB PO SCH (22:47)
[2023-12-09] MEDS: ASPIRIN 81 MG ECTAB PO SCH (22:48)
[2023-12-09] MEDS: amLODIPine BESYLATE 5 MG TAB PO SCH (22:48)
[2023-12-10] MEDS: ACETAMINOPHEN 325 MG TAB PO PRN (05:33)
[2023-12-10 06:23] LABS: Hematocrit (blood only) 37.1 % (37.0-47.0); Hemoglobin 12.7 g/dl (12.0-16.0); Mean Corpuscular Hemoglobin 31.8 pg (25.0-34.0); Mean Corpuscular Hgb Conc 34.2 g/dL (32.0-36.0); Mean Platelet Volume 9.1 fL (9.4-12.4); Platelet Count 213 K/uL (130-400); RDW Standard Deviation 40.7 fL (36.4-46.3); Red Blood Count 3.99 M/uL (4.20-5.40); White Blood Count 8.98 K/ul (4.8-10.8)
[2023-12-10 06:43] LABS: BUN Creatinine Ratio 14.7 (10-20); Creatinine Clr Calc Pharmacy 54.7 ml/min; Est GFR (African American) 87.9 ml/min; Est GFR (Non-African American) 75.8 ml/min; Potassium 3.6 mmol/L (3.5-5.1)
[2023-12-10] MEDS: LOSARTAN POTASSIUM 50 MG TAB PO SCH (08:46)
[2023-12-10] MEDS: ESCITALOPRAM OXALATE 20 MG TAB PO SCH (08:46)
[2023-12-10] MEDS ORDERED: amLODIPine BESYLATE 5 MG TAB PO SCH (09:00)
[2023-12-10] MEDS ORDERED: LUTEIN 40 MG PO SCH (09:00)
[2023-12-10] MEDS ORDERED: LOSARTAN POTASSIUM 25 MG TAB PO SCH (09:00)
[2023-12-10] MEDS: FAMOTIDINE 20 MG TAB PO SCH (10:10)
[2023-12-10] MEDS: LACTATED RINGER'S 1,000 ML IV SCH (13:13)
[2023-12-10] MEDS: VANCOMYCIN HCL 1,000 MG/270 ML BAG IV SCH (13:14)
[2023-12-10] MEDS ORDERED: fentaNYL citrate PF 100 MCG/2 ML VIAL ONE (13:25)
[2023-12-10] MEDS ORDERED: LIDOCAINE 2% 2 ML VIAL/AMP(20MG/ML) INFIL ONE (13:25)
[2023-12-10] MEDS ORDERED: PROPOFOL IV EMULSION 10 MG/ML 20 ML VIAL IV ONE (13:25)
[2023-12-10] MEDS ORDERED: BUPIVACAINE 0.25% PF 30 ML VIAL ONE (13:42)
--- NOTE | 2023-12-10 13:42 | History & Physical Bridge Note ---
Date of Service December 10, 2023 History & Physical Bridge Note I have examined the patient, reviewed the History & Physical and in the interval since the performance of the History & Physical I have noted the following changes of clinical significance: no changes noted
[2023-12-10] MEDS ORDERED: EPINEPHrine INJ 1 MG/ML AMP ONE (13:43)
--- NOTE | 2023-12-10 13:48 | Anesthesiology Consultation ---
Date of Service December 10, 2023 Assessment & Plan Chart Review Chart Review: Acceptable Risk for Surgery and Patient NOT seen in Pre Admission Testing Consults Requested none ASA ASA3 Proposed Anesthesia Anesthesia Type: General Regional Regional Laterality: Left Site: Popliteal Risk / Benefits Reviewed With: PT / POA / Parent / Guardian, Accepts Plan and Informed Consent Obtained History Surgery Operation Date: 12/10/23 14:15 Proposed Procedures p Left Ankle Open Reduction Internal Fixation - Chip Garcia MD Height/Weight Height: 5 ft 1 in Weight: 70.8 kg Allergies Allergy/AdvReac Type Severity Reaction Status Date / Time Penicillins Allergy Intermediate HIVES Verified 12/10/23 13:20 Cephalosporins Allergy Mild RASH Verified 12/10/23 13:20 clams Allergy Mild "ALMOST Verified 12/10/23 13:20 PASSED OUT" KARINE Inhibitors Allergy Unknown RASH Verified 12/10/23 13:20 oxycodone AdvReac Intermediate Nausea Verified 12/10/23 13:20 Sulfa (Sulfonamide AdvReac Unknown Weakness Verified 12/10/23 13:20 Antibiotics) Medications Home Medications Medication Instructions Recorded Confirmed Last Taken escitalopram oxalate 20 mg tablet 20 mg PO QAM ##0 05/28/10 12/09/23 12/08/23 (Lexapro) hydrochlorothiazide 25 mg tablet 25 mg PO [id number] #0 tabs 03/08/15 12/09/23 12/07/23 amlodipine 5 mg tablet 5 mg PO HS #0 tabs 08/01/15 12/09/23 12/08/23 lutein 40 mg capsule 40 mg PO QAM ##0 05/08/16 12/09/23 12/08/23 aspirin 81 mg tablet,delayed 81 mg PO HS #0 tabs 05/14/17 12/09/23 12/08/23 release coenzyme Q10 100 mg capsule 100 mg PO QPM #0 caps 05/14/17 12/09/23 12/08/23 (CoQ-10) acetaminophen 650 mg 1,300 mg PO BID 12/09/23 12/09/23 12/08/23 tablet,extended release budesonide 0.5 mg/2 mL suspension 0.5 mg inhalation HS 12/09/23 12/09/23 12/08/23 for nebulization losartan 50 mg tablet 50 mg PO QAM 12/09/23 12/09/2324 potassium chloride 10 mEq 10 meq PO QAM 12/09/23 12/09/23 12/08/23 capsule,extended release rosuvastatin 40 mg tablet 40 mg PO DAILY 12/09/23 12/09/23 Unknown Active Medications Generic Name Dose Route Start Last Admin Trade Name Freq PRN Reason Stop Dose Admin Acetaminophen 650 mg 12/09/23 14:50 12/10/23 05:33 Acetaminophen 325 Mg Tab PO 01/08/24 14:49 650 mg Q4H PRN Administration Moderate Pain (Scale 4, 5, 6) Acetaminophen 1,000 mg 12/09/23 14:50 12/10/23 08:46 Acetaminophen 500 Mg Tab PO 01/08/24 14:49 1,000 mg TID LINUS Administration Amlodipine Besylate 5 mg 12/09/23 21:45 12/09/23 22:48 Amlodipine Besylate 5 Mg Tab PO 01/08/24 21:44 5 mg HS LINUS Administration Aspirin 81 mg 12/09/23 21:00 12/09/23 22:48 Aspirin 81 Mg Ectab PO 01/08/24 20:59 81 mg HS LINUS Administration Bisacodyl 5 mg 12/09/23 14:50 12/10/23 08:47 Bisacodyl 5 Mg Tabec PO 01/08/24 14:49 5 mg DAILY LINUS Administration Budesonide 0.5 mg 12/09/23 21:00 12/09/23 20:55 Budesonide 0.5 Mg/2 Ml Vial (Pulmicort) INH 01/08/24 20:59 0.5 mg HS LINUS Administration Escitalopram Oxalate 20 mg 12/10/23 09:00 12/10/23 08:46 Escitalopram Oxalate 20 Mg Tab PO 01/09/24 08:59 20 mg QAM LINUS Administration Famotidine 20 mg 12/10/23 09:30 12/10/23 10:10 Famotidine 20 Mg Tab PO 01/09/24 09:29 20 mg BID LINUS Administration Vancomycin HCl 1,000 mg in 270 mls @ 242 mls/hr 12/10/23 06:00 12/10/23 13:14 Vancomycin Hcl IV 12/10/23 18:00 242 mls/hr PREOP LINUS Administration Protocol Lactated Ringer's 1,000 mls @ 15 mls/hr 12/10/23 13:15 12/10/23 13:13 Lr IV 01/09/24 13:14 15 mls/hr .Q24H LINUS Administration KVO Losartan Potassium 50 mg 12/10/23 09:00 12/10/23 08:46 Losartan Potassium 50 Mg Tab PO 01/09/24 08:59 50 mg QAM LINUS Administration Polyethylene Glycol 17 gm 12/09/23 14:50 12/09/23 15:19 Polyethylene (Miralax) 17 Gm Pack PO 01/08/24 14:49 Not Given DAILY LINUS Rosuvastatin Calcium 40 mg 12/09/23 21:40 12/09/23 22:47 Rosuvastatin Calcium 20 Mg Tab PO 01/08/24 21:39 40 mg HS LINUS Administration NPO Date Last Intake of Fluids: 12/09/23 Time Last Intake of Fluids: 23:00 Last Intake of Fluids Comment: sip of H20 with am meds 0900 Date Last Intake of Solids: 12/09/23 Time Last Intake of Solids: 18:00 Past Medical History Medical History Hx of myocardial infarction Gastric ulcer Exercise / Class Metabolic Activity II 4-5 Yardwork/Stairs/Walk up hill Past Surgical History Surgical History Hx of tubal ligation S/P right rotator cuff repair History of tonsillectomy and adenoidectomy Hx of colonoscopy Hx of esophagogastroduodenoscopy H/O lumbar discectomy S/P cervical spinal fusion Past Anesthesia History No Hx of Anesthesia Complications and No Family Hx of Anesthesia Complications History of PONV No Hx of PONV and No Hx of Motion Sickness Social History Smoking Status: Never smoker Hx Alcohol Use: Yes Alcohol type: wine alcohol intake frequency: 0-2 drinks per day Hx Substance Use: No Physical Exam Vital Signs Last Vital Signs Temp 36.8 C 12/10/23 13:20 Pulse 54 L 12/10/23 13:20 Resp 18 12/10/23 13:20 BP 148/67 H 12/10/23 13:20 Pulse Ox 97 12/10/23 13:20 O2 Del Method Room Air 12/10/23 13:20 Constitutional + obese; no acute distress ENMT Mouth: no dentition abnormality Thyromental Distance: < 3.5 Finger Breadths Mallampati Class: II Neck normal visual inspection and trachea midline; neck extension not limited Respiratory normal respiratory effort Auscultation: lungs clear to auscultation bilaterally Cardiovascular Rate/Rhythm: regular rate and regular rhythm Heart Sounds: no murmur Vessels: no carotid bruit Musculoskeletal Spine: normal cervical ROM and no pain with cervical ROM Extremities: extremities normal to inspection; full ROM of extremities Neurologic moves all extremities Motor/Sensory: no sensory deficit Psychiatric Orientation: alert and oriented x 3 Testing Laboratory Results 12/10/23 05:44 12/10/23 05:44 Electrocardiogram Date: 12/09/23 Findings: + SB @ (@ 57;LAD;Low voltage QRS) Chest X-Ray Date: 12/09/23 Findings: + NAD, + cardiomegaly and + atherosclerosis of thoracic aorta
[2023-12-10] MEDS ORDERED: MIDAZOLAM HCL 1 MG/ML 2ML VIAL ONE (13:53)
[2023-12-10] MEDS ORDERED: ONDANSETRON INJ 2 MG/ML 2 ML VIAL ONE (14:24)
[2023-12-10] MEDS ORDERED: DEXAMETHASONE SOD INJ 4 MG/ML VIAL ONE (14:24)
[2023-12-10] MEDS ORDERED: HYDROmorphone INJ 1 MG/ML SYRINGE IV PRN (14:33)
[2023-12-10] MEDS ORDERED: PROMETHAZINE HCL 6.25 MG in SODIUM CHLORIDE 0.9% 50 ML IV PRN (14:33)
[2023-12-10] MEDS ORDERED: NALOXONE HCL 0.4 MG/1 ML VIAL/CARP IV PRN ×2 (14:33→17:05)
[2023-12-10] MEDS ORDERED: fentaNYL citrate PF 100 MCG/2 ML VIAL IV PRN (14:33)
[2023-12-10] MEDS ORDERED: ePHEDrine sulfate 50 MG/ML AMP IV PRN (14:33)
[2023-12-10] MEDS ORDERED: FLUMAZENIL 0.1 MG/1 ML 10 ML VIAL IV PRN (14:33)
[2023-12-10] MEDS ORDERED: ATROPINE SULFATE 0.1 MG/ML 10ML SYR IV PRN (14:33)
[2023-12-10] MEDS: BUPIVACAINE/EPINEPHRINE 0.5% MPF 1:200,000 30 ML VIAL ONE (15:29)
[2023-12-10] MEDS ORDERED: ePHEDrine sulfate 50 MG/ML AMP ONE (15:39)
--- NOTE | 2023-12-10 15:59 | Fluoroscopy Report ---
FL ankle LT min 3V RTN CLINICAL HISTORY: LEFT ORIF ANKLE COMPARISON STUDY: 12/09/2023 FLUOROSCOPY TIME: 10.2 seconds FLUOROSCOPY IMAGES: 4 EXPOSURE DOSE: 0.36 mGy FINDINGS: Medial and lateral plate and screw fusion hardware in place. Satisfactory alignment of the acute ankle fractures with expected postoperative soft tissue swelling and deep tissue air. IMPRESSION: Fluoroscopic assistance as above. ACT 112: Negative or not required by law. Electronically signed by: Yovany Seay M.D. 12/10/2023 3:58 PM
--- NOTE | 2023-12-10 16:11 | Operative Report ---
PG Post Operative Report Pre & Post Diagnosis Operation Date: 12/10/23 14:15 Pre-Op Diagnosis: Left Trimalleolar ankle fracture Post-Op Diagnosis: Left Trimalleolar ankle fracture I identified the patient and participated in the time-out.: Yes Procedure Operation Date: 12/10/23 14:15 Actual Procedures p Left Ankle Open Reduction Internal Fixation(Left) - Chip Garcia MD Surgeon Chip Garcia MD Supervisor Phosphoric Acid Zev Nicholson PA-C Estimated Blood Loss 30 Findings Consistent with Post-Op Diagnosis Operative findings revealed a trimalleolar ankle fracture. The fibula fracture was comminuted. The medial malleolus was broken posteriorly with some degree of comminution as well. Specimens None Anesthesia Type General Regional Complications none Disposition Accompanied Patient To Recovery: No Indications Patient is a 78-year-old female who sustained a injury to her left ankle yesterday. This was from a fall. She had a severe deformity to the ankle which was reduced in the ER and put in a splint. X-rays and CT scan revealed trimalar ankle fracture dislocation. The patient is indicated for surgical repair. She admitted to the hospital and medically optimized preoperatively. Description of Procedure Operative implants: Medial side implants consist of: 1. Synthes 5 hole one third semitubular plate with the distal portion cut and bent. 2. 3.5 fully threaded cortical screws x 3. 3. 4.0 partially-threaded cancellous screw x 1. Lateral side implants consist of: 1. Synthes left distal fibula locking plate. 2. 4.0 partially-threaded cancellous lag screw x 1. 3. 3.5 fully threaded cortical screws x 5. 4. 2.7 fully threaded cortical locking screws x 4. The patient was taken to the op room, identified, placed on the operating table in the supine position. All contact areas were appropriately padded. IV antibiotics provided by anesthesia team. A a block had been provided in preoperatively. A general anesthetic was implemented. A left thigh tourniquet was then placed. The left lower extremity splint was removed. The left leg and ankle were then scrubbed with Hibiclens and then prepped with ChloraPrep and draped in usual sterile fashion. The left leg was elevated exsanguinated with use of an Esmarch and tourniquet was placed at 300 mmHg. A medial approach to the ankle was then performed through a curvilinear incision over the posterior medial border where we knew the fracture site was medially. Sharp dissection was carried through subcutaneous tissue directly down to bone. The medial malleolus fragment was comminuted. I reduced this with a reduction clamp. I then contoured a 5 hole one third semitubular plate to the posterior medial aspect of the ankle. I did have to cut the tines off distally in order to make sure that it did not impinge on the medial ankle tendons. I then fixed it with 3 cortical screws and then placed a single partially-threaded cancellous lag screw from posterior medial anterior lateral distally. At this point excellent stability medially. Fracture is anatomically aligned. Attention drawn laterally. A direct lateral approach to the fibula was then performed to a curvilinear incisions. Sharp dissection was carried through subcutaneous tissue directly down the bone. The fracture was exposed. This was comminuted. I used a several reduction clamps to hold the fracture reduced. I then placed a single lag screw from anterior to posterior across the main fracture fragment. This was a cancellous partially-threaded screw. I then slightly contoured a distal fibular locking plate to the lateral aspect of the fibula. It was fixed proximally with a 5 cortical screws and then distally with for 2.7 locking screws. X-ray was brought in. The fracture is anatomically aligned. I stressed the ankle and the mortise was stable. Attention drawn toward closing. Both wounds were then irrigated extensively. I injected locally with 30 cc of half percent Marcaine with epinephrine. The soft tissues over the fibular plate were closed with 0 Vicryl suture in a [id number] fashion. The tourniquet was then let down for tourniquet time 61 minutes. Hemostasis assured with electrocautery. The wounds once again irrigated. The subcutaneous tissues of both wounds were then closed with 2-0 Dexon suture in buried interrupted fashion and then the skin was closed with 3-0 nylon suture in a simple fashion. Leg was then cleaned and dried and a sterile dressing composed of Xeroform, 4 x 4's, sterile cast padding and a well-padded posterior and stirrup splint were applied. The patient was then brought out of general anesthesia and transferred to the recovery room in stable condition. Patient tolerated the procedure well and there were no complications. Zev Nicholson, my physician customer marketing assistant, was present for the entire procedure. His assistance was required for proper patient positioning, prepping and draping, surgical exposure, retraction, perform the technical details of the operation, placement of the hardware, closure of the incision site and placement of the sterile bandage and postoperative splint. I attest to the content of the Intraoperative Record and any orders documented therein. Any exceptions are noted below.
--- NOTE | 2023-12-10 16:34 | Anesthesiology Progress Note ---
Date of Service December 10, 2023 Anesthesia Post Procedure Vital Signs Vital Signs: Temp Pulse Pulse Pulse Resp BP BP 12/10/23 16:20 77 16 153/68 H 12/10/23 16:10 77 16 151/68 H 12/10/23 16:02 36.8 C 80 16 145/57 H 12/10/23 13:20 36.8 C 54 L 18 148/67 H 12/10/23 08:26 37.1 C 62 17 122/72 12/09/23 22:47 64 144/74 H 12/09/23 20:55 18 12/09/23 19:05 36.6 C 68 18 145/85 H 12/09/23 17:01 159/82 H Pulse Ox O2 Del Method 12/10/23 16:20 100 Nasal Cannula 12/10/23 16:10 100 Nasal Cannula 12/10/23 16:02 100 Nasal Cannula 12/10/23 13:20 97 Room Air 12/10/23 08:26 94 Room Air 12/09/23 22:47 12/09/23 20:55 97 Room Air 12/09/23 19:05 99 Room Air 12/09/23 17:01 Pain Intensity Left Ankle: Pain Intensity: 2 Transfer of Care Handoff Completed per policy Notes Mental Status: alert / awake / arousable Patient Amnestic to Procedure: Yes Nausea / Vomiting: adequately controlled Pain: adequately controlled Airway Patency, RR, SpO2: stable & adequate BP & HR: stable & adequate Hydration State: stable & adequate Anesthetic Complications: no major complications apparent
[2023-12-10] MEDS ORDERED: bisacodyL 10 MG SUPP PR PRN (17:05)
[2023-12-10] MEDS ORDERED: ALUMINUM/MAGNESIUM SUSP 30 ML UDC PO PRN (17:05)
[2023-12-10] MEDS ORDERED: VANCOMYCIN CONSULT ACTIVE PRN (17:05)
[2023-12-10] MEDS ORDERED: HYDROmorphone INJ 0.5 MG/0.5 ML SYR IV PRN (17:05)
[2023-12-10] MEDS ORDERED: traMADol HCL 50 MG TABLET PO PRN (17:05)
[2023-12-10] MEDS ORDERED: ONDANSETRON INJ 2 MG/ML 2 ML VIAL IV PRN (17:05)
[2023-12-10] MEDS ORDERED: METOCLOPRAMIDE HCL INJ 5 MG/ML 2 ML VIAL IV PRN (17:05)
[2023-12-10] MEDS ORDERED: MAGNESIUM HYDROXIDE SUSP 30 ML UDC PO PRN (17:05)
[2023-12-10] MEDS: POTASSIUM CHLORIDE 10 MEQ TABCR PO SCH (17:14)
--- NOTE | 2023-12-10 17:43 | Hospitalist Progress Note ---
Date of Service December 10, 2023 Assessment & Plan (1) Trimalleolar fracture of left ankle: Plan: - Admit to med surg - Xray ankle and tib/fib reviewed personally showing comminuted fracture of the distal fibula with widening of the ankle, trimalleolar ankle fracture - CT lower ext pending - Ortho consulted- ER discussed with Dr. You, will admit as she is unable to go home as she lives by herself, and would not be able to function at home until surgery performed. - Will keep NPO after midnight in case able to make time in the OR tomorrow - Obtain CXR and EKG preoperatively - Pt reports does not want oxycodone, agreeable to tramadol with a bowel regimen - ordered - PT/OT - Ok with bedside commode and assist from nursing to pivot on good leg for transfers for now. Status post open reduction and internal fixation of left ankle on 12/10/2023 The left foot remains numb Pain is controlled right now Appreciate Ortho input and recommendation (2) CAD (coronary artery disease): Plan: - Hx of such in in 2010 when she had issues with bleeding ulcer which caused anemia and promoted heart attack. - Hx of one cardiac stent May [address] Esposito -No acute cardiac symptoms (3) HTN (hypertension): Plan: - Give dose of losartan 25 mg and HCTZ now as missed am meds. Amlodipine to start in am - BP elevated on admission, trend -Blood pressure is controlled (4) HLD (hyperlipidemia): Plan: - Cont statin therapy - Chronic, stable (5) GERD (gastroesophageal reflux disease): Plan: - Hx of peptic ulcer in 2010, continue famotidine - Stable, chronic DVT ppx: teds, scds, no chemical ppx in the setting of possible OR tomorrow Lines: 2 PIV Diet: Allow HH diet today and NPO at midnight CODE: FULL Dispo: From home, likely to remain in the hospital x 1-2 days pending OR pro cedure tomorrow Admission and Anticipated Discharge Date Admission Date: December 09, 2023 Subjective 12/10/2023 The patient was seen and examined in medical for She is a status post left ankle open reduction and internal fixation Feels numb in the left leg and foot Review of Systems Review of Systems: All systems reviewed and are unremarkable except as noted below Physical Exam Physical Exam: Lying in bed without any acute distress Constitutional: well developed, well nourished and + ill appearing Eyes: PERRL, conjunctivae normal, anicteric sclerae ENMT: external ear and nose normal, oropharynx normal Neck: trachea midline, no thyromegaly Respiratory: no respiratory distress Auscultation: lungs clear to auscultation bilaterally Cardiovascular: Rate/Rhythm: regular rate and regular rhythm; not tachycardic Heart Sounds: normal S1 and normal S2; no murmur Extremities: no edema Gastrointestinal (Abdomen): Inspection/Auscultation: normal bowel sounds; abdomen not distended Percussion/Palpation: abdomen soft; abdomen nontender Musculoskeletal: Left ankle is in brace status post open reduction internal fixation Neurologic: Alert awake and oriented x 3 Results & Data Results & Data Vital Signs (Past 12 Hours) Vital Signs Temp Pulse Pulse Pulse Resp BP BP 12/10/23 17:27 37.0 C 75 16 145/71 H 12/10/23 16:40 36.4 C L 71 16 131/86 12/10/23 16:30 36.4 C L 74 16 154/63 H 12/10/23 16:20 77 16 153/68 H 12/10/23 16:10 77 16 151/68 H 12/10/23 16:02 36.8 C 80 16 145/57 H 12/10/23 13:20 36.8 C 54 L 18 148/67 H 12/10/23 08:26 37.1 C 62 17 122/72 Pulse Ox O2 Del Method O2 Flow Rate 12/10/23 17:27 96 Room Air 12/10/23 16:40 99 Nasal Cannula 2 12/10/23 16:30 100 Nasal Cannula 2 12/10/23 16:20 100 Nasal Cannula 2 12/10/23 16:10 100 Nasal Cannula 2 12/10/23 16:02 100 Nasal Cannula 2 12/10/23 13:20 97 Room Air 12/10/23 08:26 94 Room Air Laboratory Results Short CBC 12/10/23 Range/Units 05:44 WBC 8.98 (4.8-10.8) K/ul Hgb 12.7 (12.0-16.0) g/dl Hct 37.1 (37.0-47.0) % Plt Count 213 (130-400) K/uL BMP 12/10/23 05:44 Sodium 137 Potassium 3.6 Chloride 103 Carbon Dioxide 26 BUN 11 Creatinine 0.75 Glucose 109 H Calcium 9.0 Medications Administered Current Inpatient Medications Acetaminophen (Acetaminophen 500 Mg Tab) 1,000 mg PO TID [facility] Stop: 01/08/24 14:49 Last Admin: 12/10/23 17:15 Dose: Not Given Al Hydrox/Mg Hydrox/Simethicone (Aluminum/Magnesium Susp 30 Ml Udc) 15 ml PO Q4H PRN PRN Reason: Heartburn Stop: 01/09/24 17:04 Amlodipine Besylate (Amlodipine Besylate 5 Mg Tab) 5 mg PO HS [facility] Stop: 01/08/24 21:44 Last Admin: 12/09/23 22:48 Dose: 5 mg Ascorbic Acid (Ascorbic Acid 500 Mg Tab) 500 mg PO BIDM [facility] Stop: 01/09/24 17:04 Aspirin (Aspirin 81 Mg Ectab) 81 mg PO HS [facility] Stop: 01/08/24 20:59 Last Admin: 12/09/23 22:48 Dose: 81 mg Bisacodyl (Bisacodyl 5 Mg Tabec) 5 mg PO DAILY [facility] Stop: 01/08/24 14:49 Last Admin: 12/10/23 08:47 Dose: 5 mg Bisacodyl (Bisacodyl 10 Mg Supp) 10 mg ND DAILY PRN PRN Reason: Constipation Stop: 01/09/24 17:04 Budesonide (Budesonide 0.5 Mg/2 Ml Vial (Pulmicort)) 0.5 mg INH HS [facility] Stop: 01/08/24 20:59 Last Admin: 12/09/23 20:55 Dose: 0.5 mg Docusate Sodium (Docusate Sodium 100 Mg Cap) 100 mg PO BID [facility] Stop: 01/09/24 20:59 Escitalopram Oxalate (Escitalopram Oxalate 20 Mg Tab) 20 mg PO QAM [facility] Stop: 01/09/24 08:59 Last Admin: 12/10/23 08:46 Dose: 20 mg Famotidine (Famotidine 20 Mg Tab) 20 mg PO BID [facility] Stop: 01/09/24 09:29 Last Admin: 12/10/23 10:10 Dose: 20 mg Hydrochlorothiazide (Hydrochlorothiazide 25 Mg Tab) 25 mg PO SuTuThSa@0900 [facility] Stop: 01/10/24 08:59 Hydromorphone HCl (Hydromorphone Inj 0.5 Mg/0.5 Ml Syr) 0.5 mg IV Q4H PRN PRN Reason: Pain or Pre PT Stop: 12/24/23 17:04 Vancomycin HCl (Vancomycin Hcl) 1,000 mg in 270 mls @ 242 mls/hr IV PREOP [facility]; Protocol Stop: 12/10/23 18:00 Last Infusion: 12/10/23 17:39 Dose: Infused Lactated Ringer's (Lr) 1,000 mls @ 15 mls/hr IV .Q24H [facility] Stop: 01/09/24 13:14 Last Infusion: 12/10/23 14:07 Dose: Infused Sodium Chloride (Nss) 1,000 mls @ 100 mls/hr IV .Q10H [facility] Stop: 12/11/23 06:00 Vancomycin HCl 1,000 mg/ (Sodium Chloride) 270 mls @ 200 mls/hr IV Q12H [facility] Stop: 12/11/23 02:35 Ketorolac Tromethamine (Ketorolac Tromethamine 15 Mg/Ml Vial) 15 mg IV Q6H [facility] Stop: 12/12/23 11:06 Losartan Potassium (Losartan Potassium 50 Mg Tab) 50 mg PO QAM [facility] Stop: 01/09/24 08:59 Last Admin: 12/10/23 08:46 Dose: 50 mg Magnesium Hydroxide (Magnesium Hydroxide Susp 30 Ml Udc) 30 ml PO Q6H PRN PRN Reason: Constipation Stop: 01/09/24 17:04 Metoclopramide HCl (Metoclopramide Hcl Inj 5 Mg/Ml 2 Ml Vial) 10 mg IV Q6H PRN PRN Reason: Nausea And Vomiting Stop: 01/09/24 17:04 [facility]ivitamins ([facility]ivitamin Tab) [facility] [place] Stop: 01/10/24 08:59 Naloxone HCl (Naloxone Hcl 0.4 Mg/1 Ml Vial/Carp) 0.1 mg IV Q5M PRN PRN Reason: Oversedation/Resp Depression Stop: 01/09/24 17:04 Ondansetron HCl (Ondansetron Inj 2 Mg/Ml 2 Ml Vial) 4 mg IV Q4H PRN PRN Reason: Nausea And Vomiting Stop: 01/08/24 14:49 Polyethylene Glycol (Polyethylene (Miralax) 17 Gm Pack) 17 gm PO DAILY [facility] Stop: 01/08/24 14:49 Last Admin: 12/10/23 17:15 Dose: 17 gm Potassium Chloride (Potassium Chloride 10 Meq Tabcr) 10 meq PO QAM [facility] Stop: 01/09/24 08:59 Last Admin: 12/10/23 17:14 Dose: 10 meq Rosuvastatin Calcium (Rosuvastatin Calcium 20 Mg Tab) 40 mg PO HS [facility] Stop: 01/08/24 21:39 Last Admin: 12/09/23 22:47 Dose: 40 mg Sennosides (Senna 8.6 Mg Tab) 17.2 mg PO HS [facility] Stop: 01/09/24 20:59 Tramadol HCl (Tramadol Hcl 50 Mg Tablet) 50 mg PO Q4H PRN PRN Reason: Moderate Pain (Scale 4, 5, 6) Stop: 01/08/24 14:49 Tramadol HCl (Tramadol Hcl 50 Mg Tablet) 50 - 100 mg PO Q6H PRN PRN Reason: Pain & Pre PT Stop: 01/09/24 17:04
[2023-12-10] MEDS: SODIUM CHLORIDE 0.9% 1,000 ML IV SCH (17:46)
[2023-12-10] MEDS: ASCORBIC ACID 500 MG TAB PO SCH (17:46)
[2023-12-10] MEDS: KETOROLAC TROMETHAMINE 15 MG/ML VIAL IV SCH (17:46)
[2023-12-10] MEDS: SENNA 8.6 MG TAB PO SCH (21:05)
[2023-12-10] MEDS: DOCUSATE SODIUM 100 MG CAP PO SCH (21:06)
[2023-12-10] MEDS ORDERED: ACETAMINOPHEN 500 MG TAB PO SCH (22:00)
[2023-12-11] MEDS: VANCOMYCIN HCL 1,000 MG in SODIUM CHLORIDE 0.9% 250 ML IV SCH (00:37)
[2023-12-11 06:19] LABS: Basophils # (auto) 0.02 K/uL (0.00-0.20); Basophils % (auto) 0.2 %; Eosinophils # (auto) 0.01 K/uL (0.00-0.50); Eosinophils % (auto) 0.1 %; Hematocrit (blood only) 32.2 % (37.0-47.0); Immature Granulocytes # (auto) 0.03 K/uL (0.01-0.20); Immature Granulocytes % (auto) 0.3 %; Lymphocytes % (auto) 12.4 %; Mean Corpuscular Hemoglobin 32.5 pg (25.0-34.0); Mean Corpuscular Hgb Conc 34.2 g/dL (32.0-36.0); Mean Corpuscular Volume 95.3 fL (80.0-100.0); Mean Platelet Volume 9.4 fL (9.4-12.4); Monocytes % (auto) 7.6 %; Neutrophils # (auto) 8.35 K/uL (1.40-6.50); Neutrophils % (auto) 79.4 %; Platelet Count 183 K/uL (130-400); RDW Coefficient of Variation 12.1 % (11.5-14.5); RDW Standard Deviation 41.7 fL (36.4-46.3); Red Blood Count 3.38 M/uL (4.20-5.40); White Blood Count 10.51 K/ul (4.8-10.8)
[2023-12-11 06:24] LABS: Calcium 8.4 mg/dl (8.6-10.3); Potassium 4.1 mmol/L (3.5-5.1)
[2023-12-11 06:29] LABS: Creatinine Clr Calc Pharmacy 66.2 ml/min; Est GFR (African American) 99.4 ml/min; Est GFR (Non-African American) 85.8 ml/min
--- NOTE | 2023-12-11 08:14 | Surgery Progress Note ---
Date of Service December 11, 2023 Assessment & Plan (1) Trimalleolar fracture of left ankle: Plan: 78-year-old female postop day 1 from ORIF of a trimalar ankle fracture dislocation. Orthopedically she is doing well. Pain is controlled. Sounds like the block is still in effect. She is got motor function but has still numb. This should likely improve with just time today. Plan: From the orthopedic standpoint she is nonweightbearing on this left leg. Needs to obey strict heel precautions and keep pressure off her heel. She can touch weight-bear and just put the foot down but should not weight-bear for the first 2 weeks. Will leave the dressing in place. I need to see her back 2 to 3 weeks out from surgery date. Any orthopedic questions can be directly [phone]. We recommend a baby aspirin twice a day for DVT prophylaxis for 4 to 6 weeks. Just leave the dressing in place. Heel precautions. Medical management as per the medicine service. The biggest issues can be discharged as she lives by herself. She will need some accommodations and some assistance. Any orthopedic questions can be directed at [phone]. I did see her back 2 to 3 weeks out from surgery date. Admission and Anticipated Discharge Date Admission Date: December 09, 2023 Subjective 78-year-old female now postop day 1 from ORIF of a left trimalleolar ankle fracture dislocation. She is doing pretty well. She says her legs just still feels numb from the block. No real pain. Physical Exam Physical Exam: Physical examination was a pleasant elderly female. She is sitting up in her bedside looks comfortable. Examination of the left leg reveals the splint to be in place. She can dorsiflex and plantarflex her toes appropriately. She got brisk refill. She does continue have some numbness in her toes. Results & Data Vital Signs (Past 12 Hours) Vital Signs Temp Pulse Resp BP Pulse Ox O2 Del Method 12/11/23 07:33 36.7 C 62 16 153/72 H 95 Room Air 12/11/23 03:00 37.5 C 66 16 130/61 96 Room Air 12/10/23 23:00 37.0 C 73 16 148/73 H 97 Room Air PG Care Time/CCT Total # of Minutes Spent Total Time Spent with Patient: Total time spent is greater than 50% in coordination of care (as documented) at patient's floor/unit and/or counseling patient: Coding Level of Care Code 42436 Post Operative Follow-Up Diagnoses Trimalleolar fracture of left ankle S82.852A
[2023-12-11] MEDS: hydroCHLOROthiazide 25 MG TAB PO SCH (08:55)
[2023-12-11] MEDS: MULTIVITAMIN TAB PO SCH (08:56)
[2023-12-11] MEDS: ATORVASTATIN 40 MG TAB PO SCH (14:24)
--- NOTE | 2023-12-11 15:08 | Hospitalist Progress Note ---
Date of Service December 11, 2023 Assessment & Plan (1) Trimalleolar fracture of left ankle: Plan: - Admit to med surg - Xray ankle and tib/fib reviewed personally showing comminuted fracture of the distal fibula with widening of the ankle, trimalleolar ankle fracture - CT lower ext pending - Ortho consulted- ER discussed with Dr. You, will admit as she is unable to go home as she lives by herself, and would not be able to function at home until surgery performed. - Will keep NPO after midnight in case able to make time in the OR tomorrow - Obtain CXR and EKG preoperatively - Pt reports does not want oxycodone, agreeable to tramadol with a bowel regimen - ordered - PT/OT - Ok with bedside commode and assist from nursing to pivot on good leg for transfers for now. -Remains medically stable Status post open reduction and internal fixation of left ankle on 12/10/2023 The left foot remains numb Pain is controlled right now Appreciate Ortho input and recommendation Left foot remains numb otherwise no significant pain Will have more physical therapy prior to discharge home tomorrow (2) CAD (coronary artery disease): Plan: - Hx of such in in 2010 when she had issues with bleeding ulcer which caused anemia and promoted heart attack. - Hx of one cardiac stent May [address] Esposito -No acute cardiac symptoms (3) HTN (hypertension): Plan: - Give dose of losartan 25 mg and HCTZ now as missed am meds. Amlodipine to start in am - BP elevated on admission, trend -Blood pressure is controlled (4) HLD (hyperlipidemia): Plan: - Cont statin therapy - Chronic, stable (5) GERD (gastroesophageal reflux disease): Plan: - Hx of peptic ulcer in 2010, continue famotidine - Stable, chronic DVT ppx: teds, scds, no chemical ppx in the setting of possible OR tomorrow Lines: 2 PIV Diet: Allow HH diet today and NPO at midnight CODE: FULL Dispo: From home, likely to remain in the hospital x 1-2 days pending OR procedure tomorrow Admission and Anticipated Discharge Date Admission Date: December 09, 2023 Subjective 12/10/2023 The patient was seen and examined in medical for She is a status post left ankle open reduction and internal fixation Feels numb in the left leg and foot 12/11/2023 The patient was seen and examined in medical floor Her left foot remains numb Denies any significant pain Will get more physical therapy prior to discharge Review of Systems Review of Systems: All systems reviewed and are unremarkable except as noted below Physical Exam Physical Exam: Lying in bed without any acute distress Constitutional: well developed, well nourished and + ill appearing Eyes: PERRL, conjunctivae normal, anicteric sclerae ENMT: external ear and nose normal, oropharynx normal Neck: trachea midline, no thyromegaly Respiratory: no respiratory distress Auscultation: lungs clear to auscultation bilaterally Cardiovascular: Rate/Rhythm: regular rate and regular rhythm; not tachycardic Heart Sounds: normal S1 and normal S2; no murmur Extremities: no edema Gastrointestinal (Abdomen): Inspection/Auscultation: normal bowel sounds; abdomen not distended Percussion/Palpation: abdomen soft; abdomen nontender Musculoskeletal: Left foot remains numb but does not have any acute arthritis Neurologic: normal touch/pain/proprioception and moves all extremities; no focal motor deficits Psychiatric: A+Ox3, euthymic affect Lymphatic: no cervical or axillary lymphadenopathy Results & Data Results & Data Vital Signs (Past 12 Hours) Vital Signs Temp Pulse Resp BP Pulse Ox O2 Del Method 12/11/23 07:33 36.7 C 62 16 153/72 H 95 Room Air Laboratory Results Short CBC 12/11/23 Range/Units 05:34 WBC 10.51 (4.8-10.8) K/ul Hgb 11.0 L (12.0-16.0) g/dl Hct 32.2 L (37.0-47.0) % Plt Count 183 (130-400) K/uL BMP 12/11/23 05:34 Sodium 139 Potassium 4.1 Chloride 109 H Carbon Dioxide 24 BUN 13 Creatinine 0.62 Glucose 121 H Calcium 8.4 L Medications Administered Current Inpatient Medications Acetaminophen (Acetaminophen 500 Mg Tab) 1,000 mg PO TID [facility] Stop: 01/08/24 14:49 Last Admin: 12/11/23 14:48 Dose: 1,000 mg Al Hydrox/Mg Hydrox/Simethicone (Aluminum/Magnesium Susp 30 Ml Udc) 15 ml PO Q4H PRN PRN Reason: Heartburn Stop: 01/09/24 17:04 Amlodipine Besylate (Amlodipine Besylate 5 Mg Tab) 5 mg PO HS [facility] Stop: 01/08/24 21:44 Last Admin: 12/10/23 21:05 Dose: 5 mg Ascorbic Acid (Ascorbic Acid 500 Mg Tab) 500 mg PO BIDM [facility] Stop: 01/09/24 17:04 Last Admin: 12/11/23 08:51 Dose: 500 mg Aspirin (Aspirin 81 Mg Ectab) 81 mg PO HS [facility] Stop: 01/08/24 20:59 Last Admin: 12/10/23 21:05 Dose: 81 mg Bisacodyl (Bisacodyl 5 Mg Tabec) 5 mg PO DAILY [facility] Stop: 01/08/24 14:49 Last Admin: 12/11/23 08:52 Dose: 5 mg Bisacodyl (Bisacodyl 10 Mg Supp) 10 mg ME DAILY PRN PRN Reason: Constipation Stop: 01/09/24 17:04 Budesonide (Budesonide 0.5 Mg/2 Ml Vial (Pulmicort)) 0.5 mg INH [facility] Stop: 01/08/24 20:59 Last Admin: 12/10/23 20:10 Dose: Not Given Docusate Sodium (Docusate Sodium 100 Mg Cap) 100 mg PO BID [facility] Stop: 01/09/24 20:59 Last Admin: 12/11/23 08:53 Dose: 100 mg Escitalopram Oxalate (Escitalopram Oxalate 20 Mg Tab) 20 mg PO QAM [facility] Stop: 01/09/24 08:59 Last Admin: 12/11/23 08:54 Dose: 20 mg Famotidine (Famotidine 20 Mg Tab) 20 mg PO BID [facility] Stop: 01/09/24 09:29 Last Admin: 12/11/23 08:55 Dose: 20 mg Hydrochlorothiazide (Hydrochlorothiazide 25 Mg Tab) 25 mg PO SuTuThSa@0900 [facility] Stop: 01/10/24 08:59 Last Admin: 12/11/23 08:55 Dose: 25 mg Hydromorphone HCl (Hydromorphone Inj 0.5 Mg/0.5 Ml Syr) 0.5 mg IV Q4H PRN PRN Reason: Pain or Pre PT Stop: 12/24/23 17:04 Lactated Ringer's (Lr) 1,000 mls @ 15 mls/hr IV .Q24H [facility] Stop: 01/09/24 13:14 Last Admin: 12/11/23 14:20 Dose: Not Given Ketorolac Tromethamine (Ketorolac Tromethamine 15 Mg/Ml Vial) 15 mg IV Q6H [facility] Stop: 12/12/23 11:06 Last Admin: 12/11/23 11:52 Dose: 15 mg Losartan Potassium (Losartan Potassium 50 Mg Tab) 50 mg PO QAM [facility] Stop: 01/09/24 08:59 Last Admin: 12/11/23 08:55 Dose: 50 mg Magnesium Hydroxide (Magnesium Hydroxide Susp 30 Ml Udc) 30 ml PO Q6H PRN PRN Reason: Constipation Stop: 01/09/24 17:04 Metoclopramide HCl (Metoclopramide Hcl Inj 5 Mg/Ml 2 Ml Vial) 10 mg IV Q6H PRN PRN Reason: Nausea And Vomiting Stop: 01/09/24 17:04 Multivitamins (Multivitamin Tab) 1 tab PO QAM [facility] Stop: 01/10/24 08:59 Last Admin: 12/11/23 08:56 Dose: 1 tab Naloxone HCl (Naloxone Hcl 0.4 Mg/1 Ml Vial/Carp) 0.1 mg IV Q5M PRN PRN Reason: Oversedation/Resp Depression Stop: 01/09/24 17:04 Ondansetron HCl (Ondansetron Inj 2 Mg/Ml 2 Ml Vial) 4 mg IV Q4H PRN PRN Reason: Nausea And Vomiting Stop: 01/08/24 14:49 Polyethylene Glycol (Polyethylene (Miralax) 17 Gm Pack) 17 gm PO DAILY [facility] Stop: 01/08/24 14:49 Last Admin: 12/11/23 08:56 Dose: Not Given Potassium Chloride (Potassium Chloride 10 Meq Tabcr) 10 meq PO QAM [facility] Stop: 01/09/24 08:59 Last Admin: 12/11/23 08:56 Dose: 10 meq Rosuvastatin Calcium (Rosuvastatin Calcium 20 Mg Tab) 40 mg PO [facility] Stop: 01/08/24 21:39 Last Admin: 12/10/23 21:06 Dose: 40 mg Sennosides (Senna 8.6 Mg Tab) 17.2 mg PO [facility] Stop: 01/09/24 20:59 Last Admin: 12/10/23 21:05 Dose: 17.2 mg Tramadol HCl (Tramadol Hcl 50 Mg Tablet) 50 mg PO Q4H PRN PRN Reason: Moderate Pain (Scale 4, 5, 6) Stop: 01/08/24 14:49 Tramadol HCl (Tramadol Hcl 50 Mg Tablet) 50 - 100 mg PO Q6H PRN PRN Reason: Pain & Pre PT Stop: 01/09/24 17:04
[2023-12-11 19:59] VITALS: O2SAT 98
[2023-12-12 08:15] VITALS: BP 127/78; PULSE 66; RESP 17; TEMP 98.4
--- NOTE | 2023-12-12 11:09 | Surgery Progress Note ---
Date of Service December 12, 2023 Assessment & Plan (1) Closed left ankle fracture: Plan: 78-year-old female with postop day 2 from ORIF of femoral ankle fracture dislocation. Orthopedically she is doing well. Pains controlled. She is neurologically intact. Plan: 1. DVT prophylaxis including thigh-high teds, SCDs, aspirin twice a day for 6 weeks. 2. PT OT's. She is nonweightbearing on this left ankle for the next 2 weeks. 3. Pain control. Doing well with current pain regimen. 4. Disposition. She is okay for discharge anytime medically stable. She is nonweightbearing for 2 weeks See back my office in 2 to 3 weeks. Any orthopedic questions can be directed me [phone]. (2) Trimalleolar fracture of left ankle: Admission and Anticipated Discharge Date Admission Date: December 09, 2023 Subjective 78-year-old female now postop day 2 from ORIF of a left femoral ankle fracture. She is doing pretty well. The sensations come back in her foot. She reports minimal pain. No other complaints. Physical Exam Physical Exam: Physical examination is a pleasant elderly female. She is sitting up in her bedside chair looks pretty comfortable. Examination of left foot and ankle reveals the splint to be clean dry and intact.. Toes are pink. She can flex extend her toes appropriately. She is neurologically intact. Results & Data Vital Signs (Past 12 Hours) Vital Signs Temp Pulse Resp BP Pulse Ox O2 Del Method 12/12/23 08:14 36.9 C 66 17 127/78 98 Room Air PG Care Time/CCT Total # of Minutes Spent Total Time Spent with Patient: Total time spent is greater than 50% in coordination of care (as documented) at patient's floor/unit and/or counseling patient: Coding Level of Care Code 60167 Post Operative Follow-Up Diagnoses Closed left ankle fracture S82.892A Encounter type: initial encounter Trimalleolar fracture of left ankle S82.852A (1) Closed left ankle fracture Encounter type: initial encounter Qualified Code(s): S82.892A - Other fracture of left lower leg, initial encounter for closed fracture
--- NOTE | 2023-12-12 13:59 | Hospitalist Progress Note ---
Date of Service December 12, 2023 Assessment & Plan (1) Trimalleolar fracture of left ankle: Plan: - Admit to med surg - Xray ankle and tib/fib reviewed personally showing comminuted fracture of the distal fibula with widening of the ankle, trimalleolar ankle fracture - CT lower ext pending - Ortho consulted- ER discussed with Dr. You, will admit as she is unable to go home as she lives by herself, and would not be able to function at home until surgery performed. - Will keep NPO after midnight in case able to make time in the OR tomorrow - Obtain CXR and EKG preoperatively - Pt reports does not want oxycodone, agreeable to tramadol with a bowel regimen - ordered - PT/OT - Ok with bedside commode and assist from nursing to pivot on good leg for transfers for now. -Remains medically stable -Will be discharged home this afternoon remains medically stable to be discharged Status post open reduction and internal fixation of left ankle on 12/10/2023 The left foot remains numb Pain is controlled right now Appreciate Ortho input and recommendation Left foot remains numb otherwise no significant pain Will have more physical therapy prior to discharge home tomorrow Has had physical therapy and has instructions about care of the left ankle at home She will be discharged home this afternoon (2) CAD (coronary artery disease): Plan: - Hx of such in in 2010 when she had issues with bleeding ulcer which caused anemia and promoted heart attack. - Hx of one cardiac stent May [address] Esposito -No acute cardiac symptoms (3) HTN (hypertension): Plan: - Give dose of losartan 25 mg and HCTZ now as missed am meds. Amlodipine to start in am - BP elevated on admission, trend -Blood pressure is controlled (4) HLD (hyperlipidemia): Plan: - Cont statin therapy - Chronic, stable (5) GERD (gastroesophageal reflux disease): Plan: - Hx of peptic ulcer in 2010, continue famotidine - Stable, chronic DVT ppx: teds, scds, no chemical ppx in the setting of possible OR tomorrow Lines: 2 PIV Diet: Allow HH diet today and NPO at midnight CODE: FULL Dispo: From home, likely to remain in the hospital x 1-2 days pending OR procedure tomorrow Discharged today Admission and Anticipated Discharge Date Admission Date: December 09, 2023 Subjective 12/10/2023 The patient was seen and examined in medical for She is a status post left ankle open reduction and internal fixation Feels numb in the left leg and foot 12/11/2023 The patient was seen and examined in medical floor Her left foot remains numb Denies any significant pain Will get more physical therapy prior to discharge 12/12/2023 The patient was seen and examined in medical floor She has been feeling much better Left ankle pain is improved with pain medications Has had physical therapy Will be going home this afternoon Review of Systems Review of Systems: All systems reviewed and are unremarkable except as noted below Physical Exam Physical Exam: Lying in bed without any acute distress Constitutional: well developed, well nourished and + ill appearing Eyes: PERRL, conjunctivae normal, anicteric sclerae ENMT: external ear and nose normal, oropharynx normal Neck: trachea midline, no thyromegaly Respiratory: no respiratory distress Auscultation: lungs clear to auscultation bilaterally Cardiovascular: Rate/Rhythm: regular rate and regular rhythm; not tachycardic Heart Sounds: normal S1 and normal S2; no murmur Extremities: no edema Gastrointestinal (Abdomen): Inspection/Auscultation: normal bowel sounds; abdomen not distended Percussion/Palpation: abdomen soft; abdomen nontender Musculoskeletal: Left ankle pain status post fixation trimalleolar fracture Neurologic: normal touch/pain/proprioception and moves all extremities; no focal motor deficits Psychiatric: A+Ox3, euthymic affect Lymphatic: no cervical or axillary lymphadenopathy Results & Data Results & Data Vital Signs (Past 12 Hours) Vital Signs Temp Pulse Resp BP Pulse Ox O2 Del Method 12/12/23 08:14 36.9 C 66 17 127/78 98 Room Air Medications Administered Current Inpatient Medications Acetaminophen (Acetaminophen 500 Mg Tab) 1,000 mg PO TID [facility] Stop: 01/08/24 14:49 Last Admin: 12/12/23 15:00 Dose: 1,000 mg Al Hydrox/Mg Hydrox/Simethicone (Aluminum/Magnesium Susp 30 Ml Udc) 15 ml PO Q4H PRN PRN Reason: Heartburn Stop: 01/09/24 17:04 Amlodipine Besylate (Amlodipine Besylate 5 Mg Tab) 5 mg PO HS [facility] Stop: 01/08/24 21:44 Last Admin: 12/11/23 20:07 Dose: 5 mg Ascorbic Acid (Ascorbic Acid 500 Mg Tab) 500 mg PO BIDM [facility] Stop: 01/09/24 17:04 Last Admin: 12/12/23 08:21 Dose: 500 mg Aspirin (Aspirin 81 Mg Ectab) 81 mg PO HS [facility] Stop: 01/08/24 20:59 Last Admin: 12/11/23 20:08 Dose: 81 mg Bisacodyl (Bisacodyl 5 Mg Tabec) 5 mg PO DAILY [facility] Stop: 01/08/24 14:49 Last Admin: 12/12/23 08:21 Dose: Not Given Bisacodyl (Bisacodyl 10 Mg Supp) 10 mg [place] DAILY PRN PRN Reason: Constipation Stop: 01/09/24 17:04 Budesonide (Budesonide 0.5 Mg/2 Ml Vial (Pulmicort)) 0.5 mg INH [facility] Stop: 01/08/24 20:59 Last Admin: 12/11/23 19:24 Dose: Not Given Docusate Sodium (Docusate Sodium 100 Mg Cap) 100 mg PO BID [facility] Stop: 01/09/24 20:59 Last Admin: 12/12/23 08:19 Dose: 100 mg Escitalopram Oxalate (Escitalopram Oxalate 20 Mg Tab) [facility] [place] Stop: 01/09/24 08:59 Last Admin: 12/12/23 08:20 Dose: 20 mg Famotidine (Famotidine 20 Mg Tab) 20 mg PO BID [facility] Stop: 01/09/24 09:29 Last Admin: 12/12/23 08:19 Dose: 20 mg Hydrochlorothiazide (Hydrochlorothiazide 25 Mg Tab) 25 mg PO SuTuThSa@0900 [facility] Stop: 01/10/24 08:59 Last Admin: 12/11/23 08:55 Dose: 25 mg Hydromorphone HCl (Hydromorphone Inj 0.5 Mg/0.5 Ml Syr) 0.5 mg IV Q4H PRN PRN Reason: Pain or Pre PT Stop: 12/24/23 17:04 Lactated Ringer's (Lr) 1,000 mls @ 15 mls/hr IV .Q24H [facility] Stop: 01/09/24 13:14 Last Admin: 12/12/23 11:19 Dose: Not Given Losartan Potassium (Losartan Potassium 50 Mg Tab) 50 mg PO QAM [facility] Stop: 01/09/24 08:59 Last Admin: 12/12/23 08:20 Dose: 50 mg Magnesium Hydroxide (Magnesium Hydroxide Susp 30 Ml Udc) 30 ml PO Q6H PRN PRN Reason: Constipation Stop: 01/09/24 17:04 Metoclopramide HCl (Metoclopramide Hcl Inj 5 Mg/Ml 2 Ml Vial) 10 mg IV Q6H PRN PRN Reason: Nausea And Vomiting Stop: 01/09/24 17:04 Multivitamins (Multivitamin Tab) 1 tab PO QAM [facility] Stop: 01/10/24 08:59 Last Admin: 12/12/23 08:21 Dose: 1 tab Naloxone HCl (Naloxone Hcl 0.4 Mg/1 Ml Vial/Carp) 0.1 mg IV Q5M PRN PRN Reason: Oversedation/Resp Depression Stop: 01/09/24 17:04 Ondansetron HCl (Ondansetron Inj 2 Mg/Ml 2 Ml Vial) 4 mg IV Q4H PRN PRN Reason: Nausea And Vomiting Stop: 01/08/24 14:49 Polyethylene Glycol (Polyethylene (Miralax) 17 Gm Pack) 17 gm PO DAILY [facility] Stop: 01/08/24 14:49 Last Admin: 12/12/23 08:22 Dose: Not Given Potassium Chloride (Potassium Chloride 10 Meq Tabcr) 10 meq [facility] [place] Stop: 01/09/24 08:59 Last Admin: 12/12/23 08:20 Dose: 10 meq Rosuvastatin Calcium (Rosuvastatin Calcium 20 Mg Tab) 40 mg PO [facility] Stop: 01/08/24 21:39 Last Admin: 12/11/23 20:07 Dose: 40 mg Rosuvastatin Calcium (Rosuvastatin Calcium 10 Mg Tab) 40 mg PO [facility] Stop: 01/12/24 20:59 Sennosides (Senna 8.6 Mg Tab) 17.2 mg PO [facility] Stop: 01/09/24 20:59 Last Admin: 12/11/23 20:10 Dose: Not Given Tramadol HCl (Tramadol Hcl 50 Mg Tablet) 50 mg PO Q4H PRN PRN Reason: Moderate Pain (Scale 4, 5, 6) Stop: 01/08/24 14:49 Tramadol HCl (Tramadol Hcl 50 Mg Tablet) 50 - 100 mg PO Q6H PRN PRN Reason: Pain & Pre PT Stop: 01/09/24 17:04
--- NOTE | 2023-12-12 16:36 | Discharge Summary ---
Date of Service December 12, 2023 Admission HPI Per Admitting Provider This is a 78-year-old female with PMHx of CAD, HLD, GERD, episode of major depression who presents to the hospital with acute complaints of mechanical fall where she slipped from a barstool in her kitchen, states that she thinks that she tripped over her slipper, and fell to the ground injuring her left ankle. Denies hitting her head, no sycope. She states pain is well controlled. Took tylenol this morning as she normally does twice daily. She missed all her other meds this morning including BP meds. Pt lives at home alone. EMS had brought her to the hospital when she was unable to bear weight and had an obvious deformity of the ankle. In the ER her fracture was reduced due to lack of pulse, and pulse quickly returned after ankle was set. Pt feels slightly nauseous, states did not move bowels today. Pt reports hx of constipation and impaction with use of oxycodone in the past, and does not want this medication. She is agreeable to bowel regimen, and will try tramadol. Admission Exam Per Admitting Provider Physical Exam: General: awake, alert, no apparent distress, appears healthy, younger than stated age, white female Head: Normocephalic, atraumatic ENT: PERRL, EOMI, no pharyngeal exudate, mucous membranes moist Chest: Clear to auscultation, on room air, no adventitious breath sounds Cardiac: Regular rate and rhythm, no murmur, no JVD, normal peripheral pulses, good capillary refill Abdominal: NABS x 4 quadrants, soft, nondistended, nontender to palpation, no rebound or guarding Extremities: Left ankle is in splint, good sensation to light touch, good color of toes, can wiggle toes without difficulty. Normal inspection, no peripheral edema or erythema, calfs nontender to palpation Psych: Normal mood and affect Neuro: AAO x 3, strength intact bilaterally and rated 5/5, no motor deficits, speech is clear, no peripheral sensory deficits Principal Diagnosis ORIF Left Ankle Fracture Discharge Exam Lying in bed without any acute distress Constitutional well developed, well nourished and + ill appearing Eyes PERRL, conjunctivae normal, anicteric sclerae ENMT external ear and nose normal, oropharynx normal Neck trachea midline, no thyromegaly Respiratory no respiratory distress Auscultation: lungs clear to auscultation bilaterally Cardiovascular Rate/Rhythm: regular rate and regular rhythm; not tachycardic Heart Sounds: normal S1 and normal S2; no murmur Extremities: no edema Gastrointestinal (Abdomen) Inspection/Auscultation: normal bowel sounds; abdomen not distended Percussion/Palpation: abdomen soft; abdomen nontender Neurologic normal touch/pain/proprioception and moves all extremities; no focal motor de ficits Psychiatric A+Ox3, euthymic affect Lymphatic no cervical or axillary lymphadenopathy Discharge Data Allergies Allergy/AdvReac Type Severity Reaction Status Date / Time Penicillins Allergy Intermediate HIVES Verified 12/10/23 13:20 Cephalosporins Allergy Mild RASH Verified 12/10/23 13:20 clams Allergy Mild "ALMOST Verified 12/10/23 13:20 PASSED OUT" KARINE Inhibitors Allergy Unknown RASH Verified 12/10/23 13:20 oxycodone AdvReac Intermediate Nausea Verified 12/10/23 13:20 Sulfa (Sulfonamide AdvReac Unknown Weakness Verified 12/10/23 13:20 Antibiotics) Consultations 12/09/23 12:21 ED Decision to Admit Stat 12/09/23 12:40 Consult Orthopedic Surgery Routine Procedures Performed Operation Date: 12/10/23 14:15 Actual Procedures p Left Ankle Open Reduction Internal Fixation(Left) - Chip Garcia MD Ordered Studies 12/09/23 11:40 CT ankle LT wo con Stat CT foot LT wo con Stat 12/10/23 13:51 US - OR guided needle placemen Stat 12/10/23 14:15 FL ankle LT min 3V RTN Routine Hospital Course (1) Trimalleolar fracture of left ankle: - Admit to med surg - Xray ankle and tib/fib reviewed personally showing comminuted fracture of the distal fibula with widening of the ankle, trimalleolar ankle fracture - CT lower ext pending - Ortho consulted- ER discussed with Dr. You, will admit as she is unable to go home as she lives by herself, and would not be able to function at home until surgery performed. - Will keep NPO after midnight in case able to make time in the OR tomorrow - Obtain CXR and EKG preoperatively - Pt reports does not want oxycodone, agreeable to tramadol with a bowel regimen - ordered - PT/OT - Ok with bedside commode and assist from nursing to pivot on good leg for transfers for now. -Remains medically stable -Will be discharged home this afternoon remains medically stable to be discharged Status post open reduction and internal fixation of left ankle on 12/10/2023 The left foot remains numb Pain is controlled right now Appreciate Ortho input and recommendation Left foot remains numb otherwise no significant pain Will have more physical therapy prior to discharge home tomorrow Has had physical therapy and has instructions about care of the left ankle at home She will be discharged home this afternoon (2) CAD (coronary artery disease): - Hx of such in in 2010 when she had issues with bleeding ulcer which caused anemia and promoted heart attack. - Hx of one cardiac stent May [address] Esposito -No acute cardiac symptoms (3) HTN (hypertension): - Give dose of losartan 25 mg and HCTZ now as missed am meds. Amlodipine to start in am - BP elevated on admission, trend -Blood pressure is controlled (4) HLD (hyperlipidemia): - Cont statin therapy - Chronic, stable (5) GERD (gastroesophageal reflux disease): - Hx of peptic ulcer in 2010, continue famotidine - Stable, chronic DVT ppx: teds, scds, no chemical ppx in the setting of possible OR tomorrow Lines: 2 PIV Diet: Allow HH diet today and NPO at midnight CODE: FULL Dispo: From home, likely to remain in the hospital x 1-2 days pending OR procedure tomorrow Discharged today Total Time Total Time Spent Total Time Spent (In Minutes): 35 minutes Discharge Plan Discharge Items Patient Disposition: Home - Home Health Services Reason For Visit: left triamalleolar fracture Discharge Diagnosis: ORIF Left Ankle Fracture Condition on Discharge: Fair Activity: Per Instructions section Activity Comment: Non Weightbearing on Left ankle until Orthopedic follow-up Weightbearing: Left non-weightbearing Non-emergency contact: Primary Care Provider Call non-emergency contact if: you have any medication questions and your symptoms worsen Follow-up/Referrals: Ed Chu MD [Primary Care Provider] - 12/19/23 10:40 am (Date & Time 12/19/2023 10:40 AM Provider Ed Chu MD Department [facility] ) Chip Garcia MD [Physician] - 12/25/23 3:50 pm (Orthopedic follow-up 2-3 weeks from surgery date.) Diet: Heart Healthy Addtl Attending Provider Instructions: Keep Splint and post-operative bandage clean, dry, and in place until Orthopedic follow-up Non-weightbearing on left leg Keep all pressure off heel while in bed. Take aspirin 81 mg daily 2 times daily for 6 weeks to prevent blood clot and then 1 daily as before Try to use less of narcotic pain medication to avoid constipation, confusion, addiction and fall Pending Studies at Discharge: No Stand-Alone Forms: My [facility] [place] [employer], Smoking Cessation Medications and DC Order Prescriptions: New tramadol 50 mg Tablet 50 mg PO Q4H PRN (Reason: pain) Qty: 20 0RF Continued escitalopram oxalate [Lexapro] 20 mg Tablet 20 mg PO QAM Qty: 0 hydrochlorothiazide 25 mg Tablet 25 mg PO 4XWK Qty: 0 Rx Instructions: Sun/Tues/Thurs/Sat amlodipine 5 mg Tablet 5 mg PO HS Qty: 0 lutein 40 mg Capsule 40 mg PO QAM Qty: 0 coenzyme Q10 [CoQ-10] 100 mg Capsule 100 mg PO QPM Qty: 0 losartan 50 mg tablet 50 mg PO QAM potassium chloride 10 mEq capsule, extended release 10 meq PO QAM budesonide 0.5 mg/2 mL suspension for nebulization 0.5 mg inhalation HS acetaminophen 650 mg Tablet Extended Release 1,300 mg PO BID rosuvastatin 40 mg tablet 40 mg PO DAILY aspirin 81 mg Tablet,Delayed Release (Dr/Ec) 81 mg PO HS Qty: 0 0RF Rx Instructions: 1 tablet 2 times a day for 6 weeks and then 1 tablet daily Discharge Orders: Discharge Order (Routine); Ordered 12/12/23 Ordered By: Nataly Zaldivar/Other Patient Handouts: Ankle Surg Dc Admission Data Admit Date/Time: 12/09/23 12:40 Attending Provider: Nataly Gallegos Admit Provider: Sharif Frazier Primary Care Provider: Ed Chu Other Providers: Sharif Frazier; Samuel You Other Interventions: Discharge Summary Assessment (RN) Last Done: 12/12/23 14:47
[2023-12-12] MEDS ORDERED: ROSUVASTATIN CALCIUM 10 MG TAB PO SCH (21:00)
--- NOTE | 2023-12-12 22:55 | Electrocardiogram Report ---
Test Reason : Blood Pressure : / mmHG Vent. Rate : 057 BPM Atrial Rate : 057 BPM P-R Int : 166 ms QRS Dur : 092 ms QT Int : 488 ms P-R-T Axes : 074 -40 075 degrees QTc Int : 474 ms Sinus bradycardia Left axis deviation Low voltage QRS Prolonged QT Abnormal ECG When compared with ECG of 01-NOV-2010 12:30, QRS axis Shifted left Confirmed by Hunter Frank ([id number] on 12/12/2023 10:54:49 PM Referred By: REFERRED SELF Confirmed By:Hunter Frank
[2023-12-13] MEDS ORDERED: ROSUVASTATIN CALCIUM 10 MG TAB PO SCH (21:00)
== END 2023-12-12 15:45 | disposition home health service (06) | DRG 494 ==
LOC: ED 10:20 → 3E 12:40 → SUATTDRO 12:40 → 3E 14:26
DX: Z88.2 Allergy status to sulfonamides; Z98.1 Arthrodesis status; Z79.82 Long term (current) use of aspirin; W07.XXXA Fall from chair, initial encounter; Z88.0 Allergy status to penicillin; I10 Essential (primary) hypertension; I25.2 Old myocardial infarction; Z88.5 Allergy status to narcotic agent; E78.5 Hyperlipidemia, unspecified; Y92.89 Other specified places as the place of occurrence of the external cause; S82.852A Displaced trimalleolar fracture of left lower leg, initial encounter for closed fracture; I25.10 Atherosclerotic heart disease of native coronary artery without angina pectoris; Z95.5 Presence of coronary angioplasty implant and graft; K21.9 Gastro-esophageal reflux disease without esophagitis